=== PATIENT | female | born 1965 | race Caucasian/White ===

== ENCOUNTER 2018-06-17 16:37 | Emergency (ER) | payer OTHER, SELFPAY ==
[2018-06-17 16:39] VITALS: BP 141/90; PULSE 96; RESP 17; TEMP 36.7; O2SAT 99; BMI 30.8
--- NOTE | 2018-06-17 16:55 | CT_ITS ---
STUDY: CT ABDOMEN AND PELVIS WITH CONTRAST REASON FOR EXAM: Female, 53 years old. Vomiting and abdominal pain with diarrhea x1 week. History of colon cancer. RADIATION DOSAGE (If Supplied By Facility): CTDIvol = ( 15.26 ) mGy, DLP = ( 837.06 ) mGycm TECHNIQUE: Transaxial images were obtained from the dome of the diaphragm to the symphysis pubis without oral contrast. 100 ml of Isovue 300 contrast was administered. Sagittal and coronal images were reconstructed. Individualized dose optimization techniques were used for this CT. COMPARISON: None. FINDINGS: The visualized lung bases are unremarkable. The visualized portions of the heart are within normal limits. Normal liver. Normal gallbladder and extrahepatic biliary system. Normal spleen. Normal pancreas. Normal bilateral adrenal glands. Normal right kidney. Normal left kidney. Normal visualized stomach. Normal small intestine. Multiple air-fluid levels are noted throughout the colon. Anastomotic sutures rectosigmoid. There is non-visualization of the appendix. Normal abdominal aorta. Normal inferior vena cava. Normal retroperitoneum. Normal urinary bladder. Uterus normal. Bilateral tubal ligation clips. Fat-containing umbilical hernia. Normal osseous structures. CT/Abdomen/Pelvis WITH Contrast IMPRESSION: Post surgical changes. Nonspecific diarrheal disease. Electronically Signed: Braeden Jiang MD at 20:07 EST , Service support ,
--- NOTE | 2018-06-17 16:55 | EKG12_ITS ---
Test Reason : ABD PAIN Blood Pressure : / mmHG Vent. Rate : 078 BPM Atrial Rate : 078 BPM P-R Int : 118 ms QRS Dur : 084 ms QT Int : 374 ms P-R-T Axes : 039 014 033 degrees QTc Int : 426 ms Normal sinus rhythm Normal ECG Confirmed by TANIA BIANCHI ([id number]), publishing editor DULCE REYES ([id number]) on 06/21/2018 2:22:32 PM Referred By: MALIKA Confirmed By:TANIA BIANCHI
--- NOTE | 2018-06-17 17:05 | ED.DCSUM_ITS ---
- ER Visit Summary Date of Service: 06/17/18 Chief Complaint: Diarrhea History of Present Illness: The patient is a 53 F presenting with diarrhea x 5 days. Patient states she is having yellow watery diarrhea for the past 5 days. She states she is having diarrhea every hour. She is starting to feel lighth eaded. She denies sick contacts, bad food exposure, or recent antibiotics. She has a history of colon cancer that was removed 3 years ago. She denies blood in her stool. She has nausea with no vomiting. She complains of diffuse abdominal pain. Denies fever. Denies other complaints. Physical Examination: Vitals are stable. Patient is afebrile. Alert no acute distress. HEENT exam is unremarkable. Neck is supple. Lungs are clear and equal bilaterally. Heart is regular rate and rhythm. Abdomen is soft mild diffuse tenderness with no rebound or guarding Extremities are unremarkable. Skin is warm and dry. No focal neurologic deficit. Remainder of exam is unremarkable. Emergency Department Course and Treatment: Patient given IV fluids, Zofran. CBC, chemistries unremarkable other than potassium 3.2. Liver enzymes and lipase are normal. C. difficile is negative. EKG is sinus rate is 78 with no acute ischemic changes. CT abdomen pelvis shows postsurgical changes, nonspecific diarrheal disease. Stool studies are pending. Patient feels improved. She is able to ambulate without difficulty. She will follow-up with Dr. Shah marketing automation specialist for no doc. Advised return to ED if worsening complaints. Disposition: Discharge home Impression: Diarrhea This note was generated with [employer] dictation software. It may contain incorrect words, spelling, and punctuation that were not noted in review of the chart prior to signing ED Disposition - Plan for ED Patient: Chief Complaint: Abd Pain Referrals: Care Physician,No Primary [Primary Care Provider] -
--- NOTE | 2018-06-17 17:05 | NURSING ---
NO OLD EKGS
[2018-06-17 17:17] VITALS: BP 132/85; PULSE 95; RESP 14; O2SAT 98; BMI 28.2
[2018-06-17 17:47] LABS: Absolute Lymphocyte Count 1.82 X10^3/ul (0.83-4.51); Absolute Neutrophil Count 4.5 X10^3/uL (2.0-7.7); Basophil# 0.03 X10^3/uL; Basophil% 0.4 % (0-1); Eosinophil# 0.08 X10^3/uL; Eosinophils% 1.1 % (0-5); Hematocrit 37.5 % (37-47); Lymphocyte # 1.82 X10^3/ul (4.0); Lymphocyte % 24.5 % (19-41); Mean Corpuscular Hgb 26.9 pg (27.0-32.0); Mean Corpuscular Volume 84.1 fL (81-99); Mean Platelet Vol. 10.6 fl (6.2-12.0); Monocyte# 0.98 X10^3/uL; Monocyte% 13.2 % (0-10); Neutrophil % 60.7 % (47-70); Platelet Count 256 K/mm3 (150-450); RBC Distribution Width CV 13.9 % (11.6-14.6); RBC Distribution Width SD 42.7 fl (35.1-43.9); Red Blood Count 4.46 M/mm3 (4.2-5.4); White Blood Count 7.4 K/mm3 (4.4-11.0)
[2018-06-17] MEDS: MethylPREDNISolone 125 MG/2 ML Vial IV (17:58)
[2018-06-17] MEDS: Ondansetron 4 MG/2 ML Vial IV (17:58)
[2018-06-17] MEDS: DiphenhydrAMINE 50 MG/ML Syringe 25 MG IV (17:59)
[2018-06-17] MEDS: 0.9% Normal Saline 1,000 ML 1000 ML IV (17:59)
[2018-06-17 18:00] LABS: AST(SGOT) 17 U/L (15-37); Alanine Aminotransfer ALT/SGPT 25 U/L (13-56); Albumin, Serum 3.5 g/dL (3.2-5.0); Alkaline Phosphatase 68 U/L (45-117); Anion Gap 9 (5-15); BUN 7 mg/dL (7-18); BUN/Creat Ratio 7.3 RATIO (10-20); Bilirubin, Direct 0.22 mg/dL (0.00-0.30); Calcium,Total 8.9 mg/dL (8.5-10.1); Chloride 104 mmol/L (98-107); Creatinine, Serum 0.96 mg/dL (0.55-1.02); EST Glomerular Filtration Rate 65 mL/min (>60); Est Glom Filt Rate - Afr Amer 78 mL/min (>60); Estimated Creatinine Clearance 54.83 ml/min; Globulin 3.9 g/dL (2.2-4.2); Glucose 89 mg/dL (74-106); Lipase 183 U/L (73-393); Potassium 3.2 mmol/L (3.5-5.1); Protein, Total 7.4 g/dL (6.4-8.2); Sodium Level 138 mmol/L (136-145)
[2018-06-17 18:15] LABS: POSITIVE COUNT NO; POSITIVE DIFFERENTIAL NO; POSITIVE MORPHOLOGY NO
[2018-06-17 18:49] LABS: Bacteria 0 SEEN /hpf (None Seen); Mucous, Urine 0 SEEN /hpf (<or=2+); Red Blood Cells-Urine 0 SEEN /hpf (0-5); White Blood Cells 0 SEEN /hpf (0-5)
[2018-06-17 18:52] LABS: Glucose, Dipstick Normal (Normal); Ketone-Dipstick 5 mg/dl (Negative); Leukocyte Esterase-Dipstick Negative /ul (Negative); Nitrite-Dipstick Negative (Negative); Occult Blood-Urine 150 /ul (Negative); Protein-Dipstick Negative (Negative); Urine Bilirubin Dipstick Negative (Negative); Urine Urobilinogen Normal (Normal)
[2018-06-17 18:53] LABS: Color, Urine Yellow (Yellow); Urine Clarity Clear (Clear)
[2018-06-17 19:26] VITALS: BP 136/70; PULSE 86; RESP 14; O2SAT 98
[2018-06-17 19:30] LABS: Squamous Epithelial Cells - UA 0-5 SEEN /hpf (5-10)
[2018-06-17 20:39] VITALS: BP 114/83; BP 124/105; BP 134/70; PULSE 102; PULSE 89; PULSE 95; O2SAT 96
--- NOTE | 2018-06-17 22:28 | ED.DEP ---
ED Disposition - Plan for ED Patient: Chief Complaint: Abd Pain Instructions: ED Diarrhea Viral Referrals: Care Physician,No Primary [Primary Care Provider] - Rajan Shah MD [STAFF PHYSICIAN] -
--- NOTE | 2018-06-17 22:36 | ED.DEP ---
ED Disposition - Plan for ED Patient: Chief Complaint: Abd Pain Instructions: ED Diarrhea Viral Prescriptions: Ondansetron [Zofran Odt] 4 mg PO Q8H PRN PRN #10 tablet PRN Reason: Nausea Referrals: Rajan Shah MD [STAFF PHYSICIAN] - Care Physician,No Primary [Primary Care Provider] -
[2018-06-17 22:40] VITALS: BP 114/67; PULSE 87; RESP 16; O2SAT 99
== END 2018-06-17 22:49 | disposition home or self-care (01) ==
LOC: ED 17:34
PROVIDERS: Emergency Provider Emergency Medicine
DX: R19.7 Diarrhea, unspecified (principal); R42 Dizziness and giddiness; R11.0 Nausea; R10.84 Generalized abdominal pain; J45.909 Unspecified asthma, uncomplicated; K21.9 Gastro-esophageal reflux disease without esophagitis; Z85.038 Personal history of other malignant neoplasm of large intestine; Z86.2 Personal history of diseases of the blood and blood-forming organs and certain disorders involving the immune mechanism; Z90.49 Acquired absence of other specified parts of digestive tract
CPT/HCPCS: 74177; 80048; 80076; 81001; 83690; 85025; 87493; 87506; 93005; 96361; 96374; 96375; 99284; Q9967; A4216; J2405

== ENCOUNTER → 2018-06-22 08:45 | Outpatient (CLI) | payer OTHER, SELFPAY ==
[2018-06-22 10:44] LABS: Anion Gap 9 (5-15); BUN 5 mg/dL (7-18); BUN/Creat Ratio 5.2 RATIO (10-20); Calcium,Total 8.8 mg/dL (8.5-10.1); Chloride 105 mmol/L (98-107); Creatinine, Serum 0.97 mg/dL (0.55-1.02); EST Glomerular Filtration Rate 64 mL/min (>60); Est Glom Filt Rate - Afr Amer 78 mL/min (>60); Glucose 105 mg/dL (74-106); Sodium Level 140 mmol/L (136-145)
== END ==
PROVIDERS: Family Provider Family Medicine; PCP Family Medicine; Visit Provider Family Medicine
DX: E87.6 Hypokalemia (principal)
CPT/HCPCS: 36415; 80048

== ENCOUNTER → 2018-06-28 09:57 | Outpatient (CLI) | payer OTHER, SELFPAY ==
[2018-06-17 17:17] VITALS: BMI 28.2
[2018-06-28 12:46] LABS: Potassium 4.1 mmol/L (3.5-5.1)
== END ==
PROVIDERS: Family Provider Family Medicine; PCP Family Medicine; Visit Provider Family Medicine
DX: E87.6 Hypokalemia (principal)
CPT/HCPCS: 36415; 84132

== ENCOUNTER → 2019-03-18 | Outpatient (CLI) | payer OTHER, SELFPAY ==
[2019-03-18 08:17] VITALS: BMI 28.2
--- NOTE | 2019-03-18 08:25 | RAD_ITS ---
STUDY: X-RAY - RIGHT KNEE REASON FOR EXAM: Female, 54 years old. Knee pain TECHNIQUE: 3 view(s) of the knee. COMPARISON: None. FINDINGS: Normal visualized distal femur. Normal visualized proximal tibia and fibula. Normal proximal tibiofibular articulation. Normal medial femorotibial compartment. Normal lateral femorotibial compartment. Normal patellofemoral articulation. The soft tissue structures are unremarkable. RAD/Knee 4 or More Views IMPRESSION: Normal x-ray examination of the knee. Electronically Signed: Ariel Mays, at 16:47 EDT Tel , Service support ,
== END | disposition home or self-care (01) ==
LOC: HPRAD 08:24
PROVIDERS: Family Provider Family Medicine; PCP Family Medicine; Referring Provider Orthopaedic Surgery; Visit Provider Orthopaedic Surgery
DX: S89.91XA Unspecified injury of right lower leg, initial encounter (principal)
CPT/HCPCS: 73564

== ENCOUNTER → 2019-03-21 | Outpatient (CLI) | payer OTHER, SELFPAY ==
[2019-03-18 08:17] VITALS: BMI 28.2
--- NOTE | 2019-03-21 09:08 | RAD_ITS ---
STUDY: X-RAY CHEST REASON FOR EXAM: Female, 54 years old. Preop evaluation. History of asthma TECHNIQUE: Frontal and lateral views of the chest. COMPARISON: None. FINDINGS: The lungs are clear and expanded. There is no demonstrated pleural abnormality. Normal size heart. Normal mediastinum and jamila. Normal visualized pulmonary arteries. Normal visualized aortic arch and descending thoracic aorta. There are mild degenerative changes of the visualized thoracic spine. Normal visualized ribs, clavicles, and shoulders. There is no demonstrated abnormality of the visualized soft tissue structures of the upper abdomen. RAD/Chest PA and Lateral IMPRESSION: No evidence for acute cardiopulmonary pathology. Electronically Signed: Shaun Johnson MD at 1:31 EDT , Service support ,
[2019-03-21 09:53] LABS: Absolute Lymphocyte Count 2.75 X10^3/uL (0.83-4.51); Absolute Neutrophil Count 3.6 X10^3/uL (2.0-7.7); Basophil# 0.05 X10^3/uL; Basophil% 0.7 % (0-1); Eosinophil# 0.26 X10^3/uL; Eosinophils% 3.6 % (0-5); Hematocrit 40.3 % (37-47); Hemoglobin 12.9 g/dL (12.0-15.0); Lymphocyte # 2.75 X10^3/ul (4.0); Lymphocyte % 37.9 % (19-41); Mean Corpuscular Hgb 27.9 pg (27.0-32.0); Mean Platelet Vol. 10.9 fl (6.2-12.0); Monocyte# 0.59 X10^3/uL; Monocyte% 8.1 % (0-10); NRBC Flagged by Analyzer 0 % (0-5); Neutrophil # 3.59 X10^3/uL (2.7-7.7); Neutrophil % 49.4 % (47-70); Platelet Count 255 K/mm3 (150-450); RBC Distribution Width CV 13.1 % (11.6-14.6); RBC Distribution Width SD 41.1 fl (35.1-43.9); Red Blood Count 4.63 M/mm3 (4.2-5.4); White Blood Count 7.3 K/mm3 (4.4-11.0)
[2019-03-21 10:39] LABS: ALB/GLOB Ratio 0.9 RATIO (0.9-2.4); AST(SGOT) 13 U/L (15-37); Alanine Aminotransfer ALT/SGPT 20 U/L (13-56); Albumin, Serum 3.5 g/dL (3.2-5.0); Alkaline Phosphatase 70 U/L (45-117); Anion Gap 7 (5-15); BUN 12 mg/dL (7-18); BUN/Creat Ratio 12.5 RATIO (10-20); Chloride 108 mmol/L (98-107); Creatinine, Serum 0.96 mg/dL (0.55-1.02); EST Glomerular Filtration Rate 65 mL/min (>60); Est Glom Filt Rate - Afr Amer 78 mL/min (>60); Globulin 3.7 g/dL (2.2-4.2); Glucose 99 mg/dL (74-106); Potassium 3.8 mmol/L (3.5-5.1); Protein, Total 7.2 g/dL (6.4-8.2); Sodium Level 142 mmol/L (136-145)
== END | disposition home or self-care (01) ==
LOC: MTLAB 09:06
PROVIDERS: Family Provider Family Medicine; PCP Family Medicine; Referring Provider Nurse Practitioner Family; Visit Provider Nurse Practitioner Family
DX: Z01.818 Encounter for other preprocedural examination (principal)
CPT/HCPCS: 36415; 71046; 80053; 85025

== ENCOUNTER 2019-03-29 07:44 | Day surgery (SDC) | payer OTHER, SELFPAY ==
[2019-03-18 08:17] VITALS: BMI 28.2
[2019-03-29] VITALS (7 sets, daily range): BP systolic 96–116; BP diastolic 49–69; PULSE 58–73; RESP 16; TEMP 36.1–37.2; O2SAT 92–99; BMI 32.7
[2019-03-29] MEDS: Lactated Ringers 1,000 ML 100 ML IV ×2 (08:58→12:11)
[2019-03-29] MEDS: Cefazolin 2 GM in 0.9% Normal Saline 100 ML IV (10:38)
[2019-03-29] MEDS: Epinephrine (1 mg/ml) 1 MG/ML VIAL (10:40)
[2019-03-29] MEDS: MethylPREDNISolone Acetate 80 MG/ML Vial (10:40)
[2019-03-29] MEDS: Bupivacaine Mpf 0.5% 30 ML VIAL (10:40)
[2019-03-29] MEDS: Morphine 4 MG/ML Syringe (10:40)
[2019-03-29] MEDS: Bupiv/Epi 0.5% Mpf 30 ML Vial (10:50)
--- NOTE | 2019-03-29 11:18 | HP.PCM_ITS ---
History and Physical Date of Admission: 03/29/19 Intake Vital Signs 03/18/19 Body Mass Index (BMI) 28.2 Intake Visit Reasons: Right Knee Chief Complaint: VENOFER Allergies latex Allergy (Verified 06/17/18 16:39) Rash codeine Adverse Reaction (Verified 06/17/18 16:39) Vomiting iodine Adverse Reaction (Verified 06/17/18 17:34) Rash Penicillins Adverse Reaction (Verified 06/17/18 17:34) Vomiting Medications Omeprazole [Prilosec] 20 mg PO DAILY 11/09/13 [History Confirmed 03/18/19] Fluticasone 110 Mcg [Flovent (SP)] 2 puff INHALATION BID 06/16/15 [History Confirmed 03/18/19] Albuterol Inhaler [Ventolin Hfa (SP)] 1 puff INHALATION Q4H PRN PRN 07/11/15 [History Confirmed 03/18/19] antiarthritic combination no.2 900 mg tablet mg PO tab 03/18/19 [History Confirmed 03/18/19] magnesium-potassium 99 mg- 90 mg capsule cap PO cap 03/18/19 [History] PFSH Social History (Updated 03/18/19 @ 09:29 by Jorden Carias DO) Smoking Status: Never smoker HPI Right Knee: Details: Parts of this documentation were recorded by a scribe, this documentation accurately reflects the service provided and the decisions made by me, Jorden Carias DO 03/18/19 0742. CACHORRO IRENE is a 54 year old F NEW patient here today for work injury. DOI: 12/28/18. 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 SHe heard and felt a pop of her right knee. Patient states she has been in PT for about 5 weeks and states her ankle is improving but her right knee is still causing her pain. Denies numbness, tingling or other associated symptoms. Did have an MRI on Thursday and then was referred here for positive MRI findings. Patient has medial sided knee pain and states this pain often readiates around her patella. She has been working with light duty restrictions sitting a lot of the day as needed. Has been taking ibuprofen and icing the knee. Was given a script for lodine yesterday and she is going to fill this today. No previous surgery or injuries to the right knee. Does have painful medial snapping and popping. Does have colon resection and malnutrition. ROS Const Reports system reviewed and no additional complaints, except as docu Eyes Reports system reviewed and no additional complaints, except as docu ENT Reports system reviewed and no additional complaints, except as docu Card Reports system reviewed and no additional complaints, except as docu Resp Reports system reviewed and no additional complaints, except as docu GI Reports system reviewed and no additional complaints, except as docu Musc Reports system reviewed and no additional complaints, except as docu, Reports as per HPI Skin/Breast Reports system reviewed and no additional complaints, except as docu Neuro Yes system reviewed and no additional complaints, except as docu Psych Reports system reviewed and no additional complaints, except as docu Endo Reports system reviewed and no additional complaints, except as docu Maxime/Lymph Reports system reviewed and no additional complaints, except as docu Aller/Immun Reports system reviewed and no additional complaints, except as docu Ortho Exam Right Knee Date of injury: 12/28/18 Skin/Wound: No erythema, No ecchymosis Homans Sign: No 1+: Effusion Knee ROM: Yes ROM-Extension -20 to 0, No ROM-Flexion 0-140 (100) Examination: Yes Med jt line tenderness, No Lat jt line tenderness, Yes Amparo's Test (painful medial) Stability: NML: Anterior Drawer, NML: Marya, NML: Posterior Drawer Patella Grind: Yes Supplemental Info 03/18/2019 x-ray right knee: Moderate medial joint space narrowing on standing film 03/15/2019 MRI right knee on a disc: 1.5 cm complex tear posterior horn and root medial meniscus high-grade cartilage wear medial compartment with surrounding stress reaction to tibial plateau and medial femoral condyle strain of medial head of gastrocnemius moderate grade chondromalacia medial trochlea. Joint effusion. Assessment & Plan Problems 1. Sprain of right knee, unspecified ligament, initial encounter S83.91XA Plan Patient educated that she does have a large medial meniscus tear and states that this is what happened when she twisted her knee. Educated that she also has medial compartmental OA. Educated that tx options for the meniscus tear are arthroscopic surgery for meniscectomy. Educated that she may still have pain post op pain d/t the OA. however she was not having symptoms prior to injury. Will request partial medial meniscectomy of the right knee from workers comp. Patient wishes to try to return to work 2-3 days after surgery with light duty restrictions. We will also need surgery clearance for her anemia and hx of colon resection. Reviewed the pre-operative plans with the patient. Risks and benefits of the procedure were fully explained, including but not limited to infection, neurovascular injury, continued pain, arthritis, stiffness, need for further surgery, re-injury, DVT, PE, general risks of anesthesia, and loss of limb or life. The patient understands all the risks and does wish to proceed with written consent. Follow up 2 weeks post op or sooner if pain, swelling, numbness or associated symptoms, or concerns develop. All questions answered. Patient in agreement of plan. Orders Orders: Knee 4 or More Views Today S89.91XA Coding Level of Care Code Off vis,new,level 3 Diagnoses Sprain of right knee, unspecified ligament, initial encounter S83.91XA ??Encounter type: initial encounter ??Involved ligament of knee: unspecified ligament I have re-examined the patient. There are no clinical changes since date of exam
--- NOTE | 2019-03-29 11:19 | DCINST_ITS ---
Discharge Diet: No Restrictions Call your doctor if you observe: Fever of 101 or Higher, Shortness of breath, Chest pain Additional Instructions: Ice and elevate next 72 hours .keep dressing on clean and dry for 48 hours then may remove begin showering daily but do not submerge in tub or pool. After shower may apply Band-Aids . Encourage knee range of motion weightbearing as tolerated, use crutches until confident in knee then may discontinue. No strenuous activity. When not ambulating keep iced and elevated next 72 hours. Allergies/Adverse Reactions: Allergies latex Allergy (Verified 03/29/19 08:31) Rash adhesive tape Adverse Reaction (Verified 03/29/19 08:31) BLISTERS codeine Adverse Reaction (Verified 03/29/19 08:31) Vomiting iodine Adverse Reaction (Verified 03/29/19 08:31) Rash DOES OK WITH PRE-MEDS iron Adverse Reaction (Verified 03/29/19 08:31) FEVER,VOMITING Penicillins Adverse Reaction (Verified 03/29/19 08:31) Vomiting Medications to take at Discharge Omeprazole [Prilosec] 20 mg PO DAILY 11/09/13 Albuterol Inhaler [Ventolin Hfa (SP)] 1 puff INHALATION Q4H PRN PRN 07/11/15 Calcium Phosphate Trib/Vit D3 [Caltrate Gummy Bites] 2 ea PO DAILY 03/25/19 Etodolac [Lodine] 300 mg PO DAILY 03/25/19 Fluconazole [Diflucan] 100 mg PO DAILY 03/25/19 Glucosam/MSM/Chond/Nep603/Hyal [Xtbxgsnwtld-Jtkmiifgmro-BFV Tb] 2 ea PO DAILY 03/25/19 Potassium (Otc) [Potassium Otc] 99 mg PO DAILY 03/25/19 Hydrocodone Bitart/Apap 5-325 [[place] 5MG-325MG] 1 - 2 tab PO Q4H PRN PRN 5 Days #50 tab 03/29/19 The following prescriptions were given: Hydrocodone Bitart/Apap 5-325 [[place] 5MG-325MG] 1 - 2 tab PO Q4H PRN PRN 5 Days #50 tab PRN Reason: Pain Transmission Status: Received by [id number] Primary Care Physician: Erlin De Dios MD [Primary Care Provider] - Test Results: Test results from this visit will be discussed in further detail at your follow- up appointment, if applicable. Please Follow Up With: Jorden Carias DO - 2 weeks
--- NOTE | 2019-03-29 11:21 | OP.PCM_ITS ---
Report of Operation Date of Procedure: 03/29/19 Description of Surgical Findings:: Preop diagnosis: Right knee complex medial meniscus tear DJD Postoperative diagnosis: Right knee posterior horn and root complex meniscus tear, grade 4 cartilage wear medial femoral condyle Procedure: Arthroscopic right knee partial medial meniscectomy chondroplasty Anesthesia: General Estimated blood loss: 5 mL Tourniquet time: 22 minutes minutes 300 mmHg Complications: none Indication for procedure: 54-year-old female patient with mechanical knee pain he did have MRI evidence of meniscal tear and DJD the patient did wish to proceed with an elective arthroscopic surgery to attempt to alleviate the symptoms. Risk benefits and alternatives of the procedure were reviewed including risk of bleeding infection nerve artery tissue damage need for further surgery continued pain and expected postoperative course. Procedure: The patient was met in the preoperative holding area. The operative extremity was identified by both patient and physician and family and marked. Patient was brought back to the operating room on a wheeled cart and transferred to the operating table in the supine position. Anesthesia was started. A well- padded tourniquet was placed on the operative extremity. A lower extremity leg santana was secured to the operative extremity. The contralateral extremity was well-padded and the end of the bed was flexed to 90 degrees. The patient was prepped and draped in the usual sterile fashion. A timeout was called to ensure the proper patient, procedure, and extremity were being contemplated. 0.5% Marcaine with epinephrine was injected into the planned incisional areas under the skin only. An Esmarch was used to exsanguinate the extremity and the tourniquet was inflated. An 11 blade scalpel was used to make a stab incision in the anterior lateral portal. The arthroscope was inserted into the intercondylar notch and inflow and outflow tubes were attached. Arthroscopic visualization began. The medial compartment was entered. An 18-gauge spinal needle was used to establish the placement for anterior medial portal. An 11 blade scalpel was used to make a stab incision. Blunt probe was inserted followed by a meniscal probe. Immediately there is noted to be full-thickness cartilage loss of the medial femoral condyle loose cartilage flaps which were debrided with the shaver performing a gentle chondroplasty of the medial femoral condyle was also noted to be complex tearing of the posterior horn and root of medial meniscus 3 5 full-radius shaver as well as an ArthroCare and arthroscopic biting instruments were used to perform partial medial meniscectomy the ACL was found to be intact. The lateral compartment was entered free of meniscal or cartilage pathology The arthroscope was switched to the medial portal to complete the procedure. The medial and lateral gutters were inspected and were free of loose bodies. The patellofemoral joint was inspected and was free of cartilage pathology. There was good patellar tracking. The knee was thoroughly irrigated and drained. An intra-articular injection with 5 cc 0.5% Marcaine plain 4 mg of morphine and 40 mg of Depo-Medrol was injected intra-articularly. The arthroscope was removed the portals were closed with 3-0 nylon arthroscopic stitches. Followed by Xeroform 4 x 4's ABDs web roll and an Sukumar wrap. The tourniquet was let down and the drapes were removed. All counts were correct. The patient was brought back to the PACU in stable condition.
== END 2019-03-29 14:06 | disposition home or self-care (01) ==
LOC: SDC 07:47 → AC 07:47
PROVIDERS: Family Provider Family Medicine; PCP Family Medicine; Referring Provider Orthopaedic Surgery; Visit Provider Orthopaedic Surgery
PROC: (CPT 29870; principal; 2019-03-29 09:30)
DX: S83.231A Complex tear of medial meniscus, current injury, right knee, initial encounter (principal); M94.261 Chondromalacia, right knee; M17.11 Unilateral primary osteoarthritis, right knee; X50.1XXA Overexertion from prolonged static or awkward postures, initial encounter; Y93.9 Activity, unspecified; Y92.9 Unspecified place or not applicable; J45.909 Unspecified asthma, uncomplicated; G25.81 Restless legs syndrome; K21.9 Gastro-esophageal reflux disease without esophagitis; Z78.0 Asymptomatic menopausal state; Z86.2 Personal history of diseases of the blood and blood-forming organs and certain disorders involving the immune mechanism; Z85.038 Personal history of other malignant neoplasm of large intestine; Z90.49 Acquired absence of other specified parts of digestive tract; Z79.899 Other long term (current) drug therapy
CPT/HCPCS: 29881; J7120; J2405

== ENCOUNTER → 2019-04-07 | Outpatient (CLI) | payer OTHER, SELFPAY ==
[2019-03-29 08:35] VITALS: BMI 32.7
[2019-04-13 12:24] LABS: HPV Reflexed? NOT INDICATED
== END | disposition home or self-care (01) ==
PROVIDERS: Family Provider Family Medicine; PCP Family Medicine; Referring Provider Nurse Practitioner Family; Visit Provider Nurse Practitioner Family
DX: Z01.419 Encounter for gynecological examination (general) (routine) without abnormal findings (principal); N76.0 Acute vaginitis
CPT/HCPCS: 87070; 87077; 87186; 87205; 88175; G0145

== ENCOUNTER 2019-06-02 08:00 | Outpatient (RCR) | payer OTHER, SELFPAY ==
[2019-04-13 07:47] VITALS: BMI 32.7
--- NOTE | 2019-04-28 13:34 | HP.PTEVAL_ITS ---
Patient's Visit Information CACHORRO IRENE is a 54 year old F referred to Physical Therapy by Jorden Carias DO with a diagnosis of L Knee Arthroscopy. Date of Evaluation: 04/28/19 Physical Therapist: Katina Chavez DPT - Visit Plan Frequency: 3x /Week Duration: 4 Weeks Plan: Focus on improving knee ROM & LE s/s, gait training, stair training, increasing flexibility, & decreasing pain. 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 x-ray negative, MRI - 1.5 cm long tear in medial meniscus, stated slight ACL tear that will hear on its own. Off for a week from work, urgent care closed case. Transferred to [facility] seen on 04/25/19 and advised a cortisone shot to decrease inflammationg. Has returned to work and is currently working. Incisions removed 14 days ago. Reports performing freq. walking, ankle pumps, stretching exercises. Returned to work 3 days after surgery - all seated taks & resources available to elevate & ice, 10 hour shifts. Work has been very accomodation. Lives with boyfriend who helps her around the house. Lives in mobile home, 3 sets up into house. Difficulty asc/desc stairs. Describes pain as sharp & stabbing at ant. joint line to medial knee. Increase in swelling when on her feet. Worst: 6/10 Aggravating factors: sitting in chair, prolonged standing, walking long distances, ADL's, self-care activities, stairs. Pain free at times Relieving factors: ice, mild pain medications. Disrupts sleeping - usually side/stomach sleeper, sleeps on back with pillows under her knee. N/T from knee down back of leg down to toes. Frequent foot cramps. Some mild radiating pain down the leg, swelling at can spread to calf & distal thigh. Ambulates with crutches all the time, inside the house. Has 3 dogs in the house with her. 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 Lesisure activites: riding motorcycle, walking dogs, hiking, walking., traveling. PMH/Meds: anemic, see chart. - Objective Posture: RS, FH - corrected w/ V/C but not maintained. Gait:using crutches- does not place foot plat on floor-toe only walking back to IE- was able to put foot flat on ground after extension stretching by PT- decreased stance time on R, lacks TKE on R, shifts weight to L LE. HR/TR: 75% diminshed & painful w/ UE support. SLS: unable to weight shift to R LE. ROM: Knee Flex 65 degrees Ext - 10 degrees Ankle WFL (painful) after extension stretching 30 degrees prior. Strength: Ankle 3+/5 (painful), Knee 3/5 (painful), hip 3+/5 (painful)- all testing done in available range. Flexibility: Hamstring: severe Gastroc: severe. Girth: Patella 39 cm, 6 in. above 48 cm, 6 in. below 36 cm. Palpation: TTP at joint line and medial knee. Sensation: WFL to gross B touch. Incisions: healing well - Goals Goal 1:: Pt. will be I w/ HEP & progression Goal Time Frame: 4-6 Weeks Goal 2:: Pt. will demo 0-115 degrees of ROM in the right knee Goal Time Frame: 4-6 Weeks Goal 3:: Pt. will demo 4+/5 strength for R LE Goal Time Frame: 4-6 Weeks Goal 4:: Pt. will amb. >300 ft. with a normalized gait pattern & no AD. Goal Time Frame: 4-6 Weeks Goal 5:: Patient will asc/desc 8 stairs recip with 1 HR Goal Time Frame: 4-6 Weeks - Rehabilitation Potential Physical Therapy Diagnosis: Presents w/ hypomobility, antalagic gait, impaired muscle performance, decreased ROM, pdifficulty asc./desc stairs, and decreased flexibility which leads to pain w/ ADL's. Rehabilitation Potential: Good - Anticipated Interventions Patient/Client Instruction: Educate patient on: Condition, Plan of Care For the Purpose of:: To decrease pain Therapeutic Exercise to Include: Strength training, Endurance training, Balance training, Flexibilty training, Gait and locomotor training, Passive ROM, Active ROM, Dynamic Lumbar Stabilization For the Purpose of:: To improve muscle performance and motor function Functional Training to Include: Gait training For the Purpose of:: To improve muscle performance and motor function TENS: Yes Cryotherapy (ice pack, ice massage): Yes Thermo therapy (hot pack): Yes For the Purpose of:: To decrease pain Thank you for the opportunity to evaluate your patient. For Medicare and Medicare HMO plans, please review the plan of care and approve it. It will need to be FAXED BACK to us at [phone] for Medicare purposes. For Medicare only, by signing this I certify the plan of care. Please let me know if there are questions or concerns regarding this plan of care. Physician Signature: Date:
--- NOTE | 2019-08-04 13:12 | HP.PTDCSUM ---
HP - PT D/C Summary It has been my pleasure to treat CACHORRO IRENE under orders from Jorden Carias DO, for the diagnosis of Right Knee Arthroscopy for a total of 11 visit(s). Discharge Date: Please see the following information for a summary of their discharge status. - Subjective Subjective: Pt. reports therapy has been great. Back to working 10 hour shifts w/ no issues or pain. - Overall Improvement % Improvement: 100 - Objective Objective/Function: Posture: RS, FH - corrected w/ V/C but not maintained. Gait: No deviations noted. HR/TR: WFL w/ UE support. SLS: 10 sec B. ROM: Knee 0-122 degrees. Strength: Ankle/Knee/Hip 5/5. Flexibility: Hamstring: mod. Gastroc: Mod. Girth: 6 in. above patella 51 cm R/L. Palpation: NTTP. Sensation: WFL to gross B touch. Incisions: healing well. [ End ] - Goals Goal 1:: Pt. will be I w/ HEP & progression Goal Progress: Goal Met Goal 2:: Pt. will demo 0-115 degrees of ROM in the right knee Goal Progress: Goal Met Goal 3:: Pt. will demo 4+/5 strength for R LE Goal Progress: Goal Met Goal 4:: Pt. will amb. >300 ft. with a normalized gait pattern & no AD. Goal Progress: Goal Met Goal 5:: Patient will asc/desc 8 stairs recip with 1 HR Goal Progress: Goal Met - Plan Plan: 06/02/19 D/C & instructed to cont. HEP I - D/C Information If there are questions or concerns regarding this patient's physical therapy, please feel free to call me at [phone]. Thank you for the referral of this patient. Sincerely, Katina Chavez DPT
== END 2019-06-02 19:00 | disposition home or self-care (01) ==
LOC: PT 08:00
PROVIDERS: Family Provider Family Medicine; PCP Family Medicine; Visit Provider Orthopaedic Surgery
DX: S83.91XD Sprain of unspecified site of right knee, subsequent encounter (principal)
CPT/HCPCS: 97110; 97161; 97164

== ENCOUNTER → 2019-11-04 11:37 | Outpatient (CLI) | payer OTHER, SELFPAY ==
[2019-09-28 08:14] VITALS: BMI 32.7
--- NOTE | 2019-11-04 11:40 | RAD_ITS ---
STUDY: X-RAY - LEFT KNEE REASON FOR EXAM: Female, 54 years old. PAIN IN BOTH KNEES FOR A LONG TIME. NO KNOW INJURY. TECHNIQUE: 4 view(s) of the knee. COMPARISON: None. FINDINGS: Normal visualized distal femur. Normal visualized proximal tibia and fibula. Normal proximal tibiofibular articulation. Normal medial femorotibial compartment. Normal lateral femorotibial compartment. Normal patellofemoral articulation. The soft tissue structures are unremarkable. RAD/Knee 4 or More Views IMPRESSION: Normal x-ray examination of the knee. Electronically Signed: Santhosh Pineda, at 14:43 EDT , Service support ,
--- NOTE | 2019-11-04 11:44 | RAD_ITS ---
STUDY: X-RAY - RIGHT KNEE REASON FOR EXAM: Female, 54 years old. PAIN IN BOTH KNEES FOR A LONG TIME. NO KNOW INJURY. TECHNIQUE: 4 view(s) of the knee. COMPARISON: None. FINDINGS: Small degenerative spur along the medial condyle of the distal femur. Small degenerative spur of the medial tibial plateau. Normal proximal tibiofibular articulation. There is moderate degenerative arthrosis of the medial femorotibial compartment with moderate joint space narrowing. Normal lateral femorotibial compartment. Normal patellofemoral articulation. The soft tissue structures are unremarkable. RAD/Knee 4 or More Views IMPRESSION: Degenerative arthrosis. Electronically Signed: Santhosh Pineda, at 14:45 EDT , Service support ,
== END ==
PROVIDERS: PCP Family Medicine; Referring Provider Family Medicine; Visit Provider Family Medicine
DX: M25.561 Pain in right knee (principal); M25.562 Pain in left knee
CPT/HCPCS: 73564

== ENCOUNTER 2020-10-12 13:29 | Observation (INO) | payer OTHER, SELFPAY ==
[2019-09-28 08:14] VITALS: BMI 32.7
[2020-10-12] VITALS (13 sets, daily range): BP systolic 97–126; BP diastolic 53–96; PULSE 68–99; RESP 16–18; TEMP 36.6–37; O2SAT 94–100; BMI 36.1; BMI 40.4
--- NOTE | 2020-10-12 14:01 | US_ITS ---
STUDY: ABDOMINAL ULTRASOUND - RIGHT UPPER QUADRANT REASON FOR VISIT: Female, 55 years old PAIN TECHNIQUE: Ultrasound evaluation of the right upper quadrant was performed with real-time and static collier-scale imaging. TECHNICAL QUALITY: Adequate. COMPARISON: None. FINDINGS: Liver: The liver measures 15.3 cm. There is normal echogenicity of the liver. The bile ducts are within normal limits. There is hepatic color flow. The direction of portal flow is hepatopetal. There is no demonstrated mass lesion. Gallbladder: Normal distended gallbladder. The gallbladder wall measures 3.0 mm. There is a negative sonographic Fitzgerald''s sign. There is no pericholecystic fluid. Multiple gallstones are present with a nonmobile gallstone in the gallbladder neck. Common Bile Duct (C.B.D.): The common bile duct measures 4.8 mm. Pancreas: Normal size of the head, body and tail of the pancreas. There is normal echogenicity of the pancreas. There is no demonstrated pancreatic mass or cyst. Right Kidney: Normal size of the right kidney. The right kidney measures 9.5 x 5.1 x 4.2 cm. Normal renal cortex. The right cortex measures 1.2 cm. There is no demonstrated renal mass or cyst. There is no right hydronephrosis. US/Gallbladder IMPRESSION: Nondistended gallbladder with mild wall thickening, multiple gallstones and one stone appears nonmobile in the gallbladder neck. Nondistended common bile duct. Normal liver, pancreas and right kidney. Electronically Signed: Kaitlyn Cabezas MD at 16:07 EST , Service support ,
[2020-10-12] MEDS: 0.9% Normal Saline 1,000 ML 1000 ML IV (14:06)
[2020-10-12] MEDS: Ondansetron 4 MG/2 ML Vial IV (14:06)
[2020-10-12] MEDS: Morphine 4 MG/ML Syringe IV (14:06)
[2020-10-12 14:15] LABS: Absolute Lymphocyte Count 1.81 X10^3/uL (0.83-4.51); Absolute Neutrophil Count 7.1 X10^3/uL (2.0-7.7); Basophil# 0.06 X10^3/uL; Basophil% 0.6 % (0-1); Hematocrit 40.7 % (37-47); Hemoglobin 12.7 g/dL (12.0-15.0); Lymphocyte # 1.81 X10^3/ul (4.0); Lymphocyte % 18.7 % (19-41); Mean Corp Hgb Conc 31.2 g/dL (32-36); Mean Corpuscular Hgb 27.2 pg (27.0-32.0); Mean Corpuscular Volume 87.2 fL (81-99); Mean Platelet Vol. 10.8 fl (6.2-12.0); Monocyte# 0.55 X10^3/uL; Monocyte% 5.7 % (0-10); NRBC Flagged by Analyzer 0 % (0-5); Neutrophil # 7.13 X10^3/uL (2.7-7.7); Neutrophil % 73.8 % (47-70); Platelet Count 258 K/mm3 (150-450); RBC Distribution Width CV 13.1 % (11.6-14.6); RBC Distribution Width SD 41.2 fl (35.1-43.9); Red Blood Count 4.67 M/mm3 (4.2-5.4); White Blood Count 9.7 K/mm3 (4.4-11.0)
--- NOTE | 2020-10-12 14:20 | ED.DCSUM_ITS ---
- ER Visit Summary Date of Service: 10/12/20 Chief Complaint: Right upper quadrant abdominal pain History of Present Illness: The patient is a 55 F who presents with right upper quadrant abdominal pain that began today. Patient states the pain is over the right upper quadrant radiates around to her back. Patient describes the pain is sharp and stabbing. Patient states nothing makes it better or worse. Patient admits to some nausea and vomiting. Patient denies any hematemesis or coffee- ground emesis. Patient denies any diarrhea, melena, or hematochezia. Patient denies any dysuria or hematuria. Patient denies any fevers but admits to some subjective chills. Physical Examination: Vital signs are stable. Patient is afebrile. Patient is in no acute distress. Oral mucosa is pink and moist. Neck is supple. Trachea is midline. There is no JVD. Heart was regular rate and rhythm. Lungs are clear and equal bilaterally. Abdomen is soft. Bowel sounds are normal. There is right upper quadrant tenderness. Fitzgerald sign was negative. There is no rebound or guarding noted. Cranial nerves II through XII are intact. There are no focal motor or sensory deficits. Extremities are intact. There is no calf tenderness or edema. Test Results: CBC is within normal limits. Comprehensive metabolic profile showed a slightly elevated creatinine of 1.16. Total bilirubin was elevated 2.3. AST was 151 ALT was 88. Lipase was normal at 136. Gallbladder ultrasound was obtained. There are multiple gallstones. There is one gallstone noted in the neck of the gallbladder. There is minimal wall thickening. There is normal bile duct measurement. There is no pericholecystic fluid. This was interpreted by the radiologist and reviewed by myself. Emergency Department Course and Treatment: Patient was given morphine and Zofran here. Patient is resting comfortably on reevaluation. Case was discussed with Dr. Helms. He will take the patient to endoscopy for an ERCP. He will admit the patient to his service and perform laparoscopic cholecystectomy tomorrow. Patient understands and is agreeable with the plan. All questions were answered. Disposition: Admit to hospital Impression: 1. Cholelithiasis This note was generated with Filter [employer] software. It may contain incorrect words, spelling, and punctuation that were not noted in review of the chart prior to signing ED Disposition - Plan for ED Patient: Disposition: Acute Care Hospital [facility] Diagnosis: Cholelithiasis Referrals: Erlin De Dios MD [Primary Care Provider] -
[2020-10-12 14:35] LABS: AST(SGOT) 151 U/L (15-37); Alanine Aminotransfer ALT/SGPT 88 U/L (13-56); Albumin, Serum 3.7 g/dL (3.2-5.0); Alkaline Phosphatase 103 U/L (45-117); Anion Gap 7 (5-15); BUN 11 mg/dL (7-18); BUN/Creat Ratio 9.5 RATIO (10-20); Calcium,Total 9.3 mg/dL (8.5-10.1); Chloride 105 mmol/L (98-107); Creatinine, Serum 1.16 mg/dL (0.55-1.02); EST Glomerular Filtration Rate 52 mL/min (>60); Est Glom Filt Rate - Afr Amer 63 mL/min (>60); Globulin 3.6 g/dL (2.2-4.2); Glucose 131 mg/dL (74-106); Lipase 136 U/L (73-393); Potassium 3.6 mmol/L (3.5-5.1); Protein, Total 7.3 g/dL (6.4-8.2); Sodium Level 139 mmol/L (136-145)
[2020-10-12 16:06] LABS: Bacteria 0 SEEN /hpf (None Seen); Mucous, Urine 0 SEEN /hpf (<or=2+)
[2020-10-12 16:14] LABS: Color, Urine Yellow (Yellow); Glucose, Dipstick Normal (Normal); Ketone-Dipstick 5 mg/dl (Negative); Leukocyte Esterase-Dipstick 25 /ul (Negative); Nitrite-Dipstick Negative (Negative); Occult Blood-Urine 25 /ul (Negative); Protein-Dipstick Negative (Negative); Specific Gravity, Urine 1.015 (1.002-1.030); Urine Bilirubin Dipstick Negative (Negative); Urine Clarity Clear (Clear); Urine Urobilinogen 4 mg/dl (Normal)
[2020-10-12 16:22] LABS: Red Blood Cells-Urine 0-5 SEEN /hpf (0-5); Squamous Epithelial Cells - UA 0-5 SEEN /hpf (5-10); White Blood Cells 0-5 SEEN /hpf (0-5)
--- NOTE | 2020-10-12 16:44 | NURSING ---
[facility]UR[facility]
--- NOTE | 2020-10-12 16:47 | NURSING ---
MED SURG AFTER SURGERY JUAN CHOLELITHIASIS
--- NOTE | 2020-10-12 16:48 | NURSING ---
CALLED [facility]Y [facility]USTOS FOR TRANSFER TALKED TO [place]
--- NOTE | 2020-10-12 17:02 | ED.RN ---
THIS NURSE SPOKE WITH AD IN [facility]. THEY ARE AWARE SHE IS NOT PREPPED FOR SURGERY. OK TO TAKE TO [facility]
--- NOTE | 2020-10-12 17:02 | PCM.HP.STD ---
Problem List (1) Obstructive jaundice Status: Acute (2) Cholecystitis Status: Acute History of Present Illness Date of Admission: 10/12/20 The patient is a 55 year old F here with right upper quadrant pain since yesterday. The patient reports yesterday evening she started developing right upper quadrant pain and it got worse throughout the evening and into today. She tried to eat breakfast and threw up this morning. She reports the pain radiates around to the back. Past Medical History Allergies latex Allergy (Verified 10/12/20 13:31) Rash adhesive tape Adverse Reaction (Verified 10/12/20 13:31) BLISTERS codeine Adverse Reaction (Verified 10/12/20 13:31) Vomiting iodine Adverse Reaction (Verified 10/12/20 13:31) Rash DOES OK WITH PRE-MEDS iron Adverse Reaction (Verified 10/12/20 13:31) FEVER,VOMITING Penicillins Adverse Reaction (Verified 10/12/20 13:31) Vomiting Home Medications: Ambulatory Orders Medication Instructions Recorded Omeprazole [Prilosec] 20 mg PO DAILY 11/09/13 Albuterol Inhaler [Ventolin Hfa 1 puff INHALATION Q4H PRN PRN 07/11/15 (SP)] Calcium Phosphate Trib/Vit D3 2 ea PO DAILY 03/25/19 [Caltrate Gummy Bites] Potassium (Otc) [Potassium Otc] 99 mg PO DAILY 03/25/19 Surgical History: Surgical History (Last Updated 04/13/19 @ 09:08 by Marivel Mirza) h/o right knee scope Surgical History: colectomy Smoking Status: Never smoker - *Family History Maternal History Items: No pertinent history Review of Systems Constitutional: Denies: Anorexia, Fever HEENT: Denies: Difficulty Swallowing Cardiovascular: Denies: Chest Pain Respiratory: Denies: Cough, Shortness of Breath Gastrointestinal: Reports: Abdominal Pain, Nausea, Vomiting. Denies: Hematemesis, Hematochezia Genitourinary: Denies: Frequency Musculoskeletal: Denies: Leg Pain Skin: Denies: Dryness, Jaundice Hematologic/ Lymphatic: Denies: Anemia VTE Information - Inpt Only VTE Present on Admission: No VTE Mechan Device Prophylaxis: SCD's - Physical Exam Vitals/I&O's: Vital Signs Temp Pulse Resp BP Pulse Ox 98.1 F 79 16 97/84 H 99 10/12/20 16:10 10/12/20 16:10 10/12/20 16:10 10/12/20 16:10 10/12/20 16:10 Oxygen Delivery Method Room Air Weight: 204 lb Body Mass Index (BMI) 36.1 General: Alert, Oriented x3 Neck: No JVD Lungs: Normal air movement Cardiovascular: Regular rate, Regular Rhythm Abdomen: Soft, Non-Distended, Tender - Tender in the right upper quadrant Skin: No rashes Musculoskeletal: No Tenderness to Palpation of Joints or Extremities Neurological: Cranial nerves II-XII grossly intact Psych/Mental Status: Normal Affect Laboratory Results 10/12/20 13:53: WBC 9.7, RBC 4.67, Hgb 12.7, Hct 40.7, MCV 87.2, MCH 27.2, MCHC 31.2 L, RDW Std Deviation 41.2, RDW Coeff of Laila 13.1, Plt Count 258, MPV 10.8, Immature Gran % (Auto) 0.200, Neut % (Auto) 73.8 H, Lymph % (Auto) 18.7 L, Pepin % (Auto) 5.7, Eos % (Auto) 1.0, Baso % (Auto) 0.6, Absolute Neuts (auto) 7.1, Absolute Lymphs (auto) 1.81, Nucleated RBC % 0 10/12/20 13:53: Sodium 139, Potassium 3.6, Chloride 105, Carbon Dioxide 27.0, Anion Gap 7, BUN 11, Creatinine 1.16 H, Estim Creat Clear Calc 46.40, Est GFR (MDRD) Af Amer 63, Est GFR (MDRD) Non-Af 52 L, BUN/Creatinine Ratio 9.5 L, Glucose 131 H, Calcium 9.3, Total Bilirubin 2.30 H, AST 151 H, ALT 88 H, Alkaline Phosphatase 103, Total Protein 7.3, Albumin 3.7, Globulin 3.6, Albumin/Globulin Ratio 1.0, Lipase 136 10/12/20 16:00: Urine Color Yellow, Urine Clarity Clear, Urine pH 8.0, Ur Specific [place] 1.015, Urine Protein Negative, Urine Glucose (UA) Normal, Urine Ketones 5 H, Urine Occult Blood 25 H, Urine Nitrite Negative, Urine Bilirubin Negative, Urine Urobilinogen 4 H, Ur Leukocyte Esterase 25 H, Urine RBC 0-5 SEEN, Urine WBC 0-5 SEEN, Ur Squamous Epith Cells 0-5 SEEN, Urine Bacteria 0 SEEN, Urine Mucus 0 SEEN Clinical Impression(s) from Imaging Studies Gallbladder Ultrasound 10/12/20 14:01 IMPRESSION: Nondistended gallbladder with mild wall thickening, multiple gallstones and one stone appears nonmobile in the gallbladder neck. Nondistended common bile duct. Normal liver, pancreas and right kidney. Electronically Signed: Kaitlyn Cabezas MD at 16:07 EST , Service support , Current Medications Clindamycin Phosphate 900 mg/ (Dextrose) 106 mls @ 150 mls/hr IV X1 ONE Stop: 10/12/20 17:33 Assessment/Plan All Active Problems Obstructive jaundice (Acute) Cholecystitis (Acute) 55-year-old female with acute cholecystitis and possible choledocholithiasis 1. Patient has right upper quadrant pain and ultrasound revealed a borderline thickened gallbladder wall with a stone lodged in the neck of the gallbladder. The patient does have a normal white count but she does have a left shift. The patient also has elevated LFTs. I discussed with her that she likely has early acute cholecystitis as well as obstruction of her bile duct. 2. I discussed ERCP with her in detail. I discussed the procedure as well as the risks including but not limited to bleeding, infection, perforation of the bile duct or bowel, pancreatitis. I also discussed the possibility of stent placement. The patient understands the procedure and is willing to proceed. I will plan for a Covid test and antibiotics today and ERCP today. Plan for laparoscopic cholecystectomy tomorrow. I did discuss contrast used during the case that she is mildly allergic to iodine with a rash reaction. The patient will receive steroids and Benadryl prior to procedure. Omari Helms MD Pager: [facility] [address] [place] [address] [address] [place] [address] Office:
--- NOTE | 2020-10-12 17:10 | RAD_ITS ---
CLINICAL HISTORY: Female, 55 years old. Pain. PROCEDURE: ERCP. FLUOROSCOPY TIME (if supplied): Not provided. TECHNIQUE: 5 procedure images were presented for interpretation. The images demonstrate the endoscope in the duodenum. There is cannulization of the bile documented with injection of contrast. There is no evidence of biliary ductal dilatation. The gallbladder and CBD appear normal. There is no evidence of stricture or filling defect. Please refer to the procedural report for further details. RAD/ERCP Biliary Only IMPRESSION: ERCP in the OR. Electronically Signed: Fili Carmen DO at 22:35 EST Tel [phone], Service support ,
--- NOTE | 2020-10-12 17:51 | OP.CCLET_ITS ---
10/12/2020 Erlin De Dios [address] [place] [address] Re : ERCP procedure for Krystyna Tinoco Dear Dr. De Dios This procedure was performed on Monday, October 12, 2020. My impressions and recommendations are as follows: Impressions : - A biliary sphincterotomy was performed. - The biliary tree was swept and sludge was found. Recommendations : - Ad[facility] the patient [facility]. My findings are described in the full procedure note, which is enclosed. If I can be of further assistance, please feel free to contact me at Doctor phone number(s): , Work: . Sincerely, Omari Helms MD 10/12/2020 5:50:29 PM This report has been signed electronically.
--- NOTE | 2020-10-12 17:51 | OP.ERCP_ITS ---
Patient Name: Krystyna Tinoco Procedure Date: 10/12/2020 4:51 PM Date of : 1965 Age: 55 Procedure: ERCP Indications: Abdominal pain of suspected biliary origin, Elevated liver enzymes Providers: Omari Helms MD Medicines: Monitored Anesthesia Care Patient Profile: This is a 55 year old female. Refer to note in patient chart for documentation of history and physical. Complications: No immediate complications. Procedure: Pre-Anesthesia Assessment: - Prior to the procedure, a History and Physical was performed, and patient medications and allergies were reviewed. The patient's tolerance of previous anesthesia was also reviewed. The risks and benefits of the procedure and the sedation options and risks were discussed with the patient. All questions were answered, and informed consent was obtained. Prior Anticoagulants: The patient has taken no previous anticoagulant or antiplatelet agents. After reviewing the risks and benefits, the patient was deemed in satisfactory condition to undergo the procedure. After obtaining informed consent, the scope was passed under direct vision. Throughout the procedure, the patient's blood pressure, pulse, and oxygen saturations were monitored continuously. The [id number]/n [id number] endoscope was introduced through the mouth, and advanced to the duodenum and used to inject contrast into the bile duct. The ERCP was accomplished without difficulty. The patient tolerated the procedure well. Scope In: 5:26:11 PM Scope Out: 5:37:38 PM Total Procedure Duration Time 0 hours 11 minutes 27 seconds Findings: A 0.035 inch x 260 cm straight Dreamwire was passed into the biliary tree. The sphincterotome was passed over the guidewire and the bile duct was then deeply cannulated. Contrast was injected. I personally interpreted the bile duct images. There was brisk flow of contrast through the ducts. Biliary sphincterotomy was made with a monofilament sphincterotome using ERBE electrocautery. There was no post-sphincterotomy bleeding. The biliary tree was swept with a 12 mm balloon starting at the bifurcation. Sludge was swept from the duct. Impression: - A biliary sphincterotomy was performed. - The biliary tree was swept and sludge was found. Recommendation: - Admit the patient to [facility] for [facility] care. Procedure Code(s): --- Professional --- 86664, Endoscopic retrograde cholangiopancreatography (ERCP); with removal of calculi/debris from biliary/pancreatic duct(s) 95657, Endoscopic retrograde cholangiopancreatography (ERCP); with sphincterotomy/papillotomy Diagnosis Code(s): --- Professional --- R10.9, Unspecified abdominal pain R74.8, Abnormal levels of other serum enzymes CPT copyright 2017 [employer]. All rights reserved. The codes documented in this report are preliminary and upon comp field case manager review may be revised to meet current compliance requirements. Omari Helms MD 10/12/2020 5:50:29 PM This report has been signed electronically. Number of Addenda: 0 Note Initiated On: 10/12/2020 4:51 PM
--- NOTE | 2020-10-12 18:13 | PN_ITS ---
Progress Note Patient had successful ERCP with clearance of duct. There is good flow of bile. I discussed the case with the patient and discussed laparoscopic cholecystectomy for tomorrow. I discussed the procedure in detail with the patient. I discussed the risks, benefits, and alternatives of the procedure. I discussed the risks including but not limited to bleeding, infection, injury to surrounding organs such as the liver, bile duct, bowels. I did discuss the possibility of having to convert to an open procedure as well as the possibility that if any injuries occurred this may necessitate further surgery at a tertiary care center. Omari Helms MD Pager: [facility] [address] [place] [address], [address] [place] [address] Office: [facility] Vital Signs/Narrative: Vital Signs Temp Pulse Resp BP Pulse Ox 10/12/20 18:00 78 16 109/63 100 10/12/20 17:56 97.8 F 99 16 120/96 H 100 10/12/20 17:01 98.1 F 79 16 97/84 H 99 10/12/20 16:10 98.1 F 79 16 97/84 H 99
[2020-10-12] MEDS: 0.9% Normal Saline 1,000 ML 60 ML IV (19:35)
[2020-10-12] MEDS: Morphine 2 MG/ML Syringe IV (19:35)
[2020-10-13] VITALS (15 sets, daily range): BP systolic 89–148; BP diastolic 48–80; PULSE 63–102; RESP 16–18; TEMP 36.1–37.2; O2SAT 92–98; BMI 40.3
--- NOTE | 2020-10-13 05:00 | EKG12_ITS ---
Test Reason : AM EKG Blood Pressure : / mmHG Vent. Rate : 066 BPM Atrial Rate : 066 BPM P-R Int : 124 ms QRS Dur : 082 ms QT Int : 414 ms P-R-T Axes : 056 006 011 degrees QTc Int : 434 ms Normal sinus rhythm with sinus arrhythmia Normal ECG When compared with ECG of 17-JUN-2018 17:17, No significant change was found Confirmed by AVERY ANGULO, DEB ([id number]), legal editor ZAIN SUMMERS ([id number]) on 10/16/2020 12:39:32 PM Referred By: JUAN Confirmed By:DEB VARELA MD
[2020-10-13] MEDS: Pantoprazole Sodium 20 MG Tablet PO (05:01)
[2020-10-13 05:31] LABS: Absolute Lymphocyte Count 1.12 X10^3/uL (0.83-4.51); Absolute Neutrophil Count 10.1 X10^3/uL (2.0-7.7); Basophil# 0.01 X10^3/uL; Basophil% 0.1 % (0-1); Hematocrit 41.5 % (37-47); Hemoglobin 13.4 g/dL (12.0-15.0); Lymphocyte # 1.12 X10^3/ul (4.0); Lymphocyte % 9.8 % (19-41); Mean Corp Hgb Conc 32.3 g/dL (32-36); Mean Corpuscular Hgb 28.2 pg (27.0-32.0); Mean Corpuscular Volume 87.4 fL (81-99); Mean Platelet Vol. 11.1 fl (6.2-12.0); Monocyte# 0.14 X10^3/uL; Monocyte% 1.2 % (0-10); NRBC Flagged by Analyzer 0 % (0-5); Neutrophil # 10.06 X10^3/uL (2.7-7.7); Neutrophil % 88.3 % (47-70); Platelet Count 249 K/mm3 (150-450); RBC Distribution Width SD 41.1 fl (35.1-43.9); Red Blood Count 4.75 M/mm3 (4.2-5.4); White Blood Count 11.4 K/mm3 (4.4-11.0)
[2020-10-13 06:01] LABS: AST(SGOT) 279 U/L (15-37); Alanine Aminotransfer ALT/SGPT 368 U/L (13-56); Albumin, Serum 3.5 g/dL (3.2-5.0); Alkaline Phosphatase 122 U/L (45-117); Anion Gap 8 (5-15); BUN 9 mg/dL (7-18); BUN/Creat Ratio 8.3 RATIO (10-20); Calcium,Total 8.9 mg/dL (8.5-10.1); Chloride 108 mmol/L (98-107); Creatinine, Serum 1.09 mg/dL (0.55-1.02); EST Glomerular Filtration Rate 56 mL/min (>60); Est Glom Filt Rate - Afr Amer 67 mL/min (>60); Estimated Creatinine Clearance 42.87 ml/min; Globulin 3.6 g/dL (2.2-4.2); Glucose 144 mg/dL (74-106); Potassium 4.3 mmol/L (3.5-5.1); Protein, Total 7.1 g/dL (6.4-8.2); Sodium Level 141 mmol/L (136-145)
--- NOTE | 2020-10-13 07:05 | GALL_PTH ---
PATIENT: CACHORRO IRENE LOC: MS3 U#:[id number] AGE/SX: 55/F ROOM: [facility] RE10/12/[address]: Dr. Omari Helms MD : 1965 BED: 1 DIS: 10/14/2020 SPEC #: [id number] RECD: 10/15/20 08:19 STATUS: CLAUDIO HELMS #: [id number] ABDELRAHMAN: 10/13/20 07:[address]: Omari Helms DEPT: SURGICAL PATHOLOGY RECD BY: Sharona Borja ENTERED: 10/15/20 08:36 SP TYPE: ULISES ANDERSON DR: Dr. Erlin De Dios MD Tissues: Gallbladder, NOS Procedures: Surgery Specimen Level III HEADER OPERATION: Laparoscopic cholecystectomy with IOC PRE-OP DIAGNOSIS: Obstructive jaundice, cholecystitis TISSUE SUBMITTED: Gallbladder MICROSCOPIC DIAGNOSIS Gallbladder, cholecystectomy: Chronic cholecystitis and cholelithiasis. Benign pericystic lymph node. AM:jesus 10/16/2020 MICROSCOPIC DESCRIPTION Slides are reviewed. GROSS DESCRIPTION Received is one container labeled with the patient's name and designated gallbladder. The specimen consists of a gallbladder measuring 8 cm in length and up to 4 cm in diameter. The external surface is pink-kee, smooth and glistening for the most part. Focally it is granular, hemorrhagic and contains cautery artifact. The gallbladder contains yellow-green bile and multiple brownish-black stones measuring in aggregate 3 x 3 x 1 cm and 0.1 to 1 cm in greatest dimension. The mucosa is bile-stained and without any mass lesions. The gallbladder wall measures up to 0.1 cm in thickness. Also present close to the cystic duct is an ovoid piece of brownish soft tissue measuring 0.7 cm in greatest dimension, a possible lymph node. [employer] sections from the gallbladder and the cystic duct including the entire possible lymph node are submitted in one cassette. / SJ:jesus 10/15/20 TC:3 CPT: 30706
--- NOTE | 2020-10-13 07:25 | NURSING ---
report given to Kelly. abx sent with pt. pt sent down to OR by [facility]. pt stable.
--- NOTE | 2020-10-13 07:30 | RAD_ITS ---
CLINICAL HISTORY: Female, 55 years old. Gallstones in a contracted gallbladder. PROCEDURE: CHOLANGIOGRAM - intraoperative FLUOROSCOPY TIME (if supplied): 8 seconds TECHNIQUE: Fluoroscopic guidance was provided in the OR during a intraoperative cholangiogram. The 54 provided. Images demonstrate injection of contrast via the cystic duct stump. There is filling of the intra and extrahepatic bile ducts without evidence for stricture, dilatation or filling defect. There is free spillage of contrast into the duodenum. Please refer to the operative report for further details. RAD/Cholangiogram/ O R,Initial IMPRESSION: Fluoroscopy provided during an intraoperative cholangiogram, as above. Electronically Signed: Fili Carmen DO at 9:55 EST Tel [phone], Service support ,
[2020-10-13] MEDS: Bupivacaine Mpf 0.5% 30 ML VIAL (07:44)
--- NOTE | 2020-10-13 08:47 | OP.PCM_ITS ---
Problem List (1) Obstructive jaundice Status: Acute (2) Cholecystitis Status: Acute Report of Operation Date of Procedure: 10/13/20 Pre-Operative Diagnosis: Acute cholecystitis Post-Operative Diagnosis: 1. Acute cholecystitis. 2. Small bowel enterotomy Surgery/Procedure Performed:: 1. Laparoscopic cholecystectomy with cholangiogram. 2. Repair of small bowel enterotomy Specimen's removed: Gallbladder and contents Description of Procedure: After obtaining informed consent patient was brought back to the operating room. General anesthesia was induced. The abdomen was prepped and draped in usual sterile fashion. A small midline incision was made superior to the umbilicus and deepened to the level of fascia. The fascia was elevated and incised. Next an area of small bowel was mistaken for peritoneum and a small enterotomy was created. The small bowel was delivered through the incision and the enterotomy was closed with a running 3-0 chromic suture and interrupted 3-0 silk sutures to imbricate the suture line. This was done in a transverse fashion and there was a good lumen with no leakage of bilious contents. This was reduced into the abdomen. 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 The small bowel had been herniating through this defect. Finger sweep was performed and the Holder trocar was placed into the abdomen. The balloon was inflated. The abdomen was inflated to 15 mmHg. Next a camera was introduced into the abdomen and the abdomen was inspected. Next under direct visualization three 5-mm ports were placed one subxiphoid and 2 subcostal. Next the gallbladder was elevated and retracted toward the right shoulder. The peritoneum was stripped from the gallbladder. The infundibulum was located and retracted laterally. Next the triangle of Calot was dissected and the cystic duct and cystic artery were identified. Cholangiograms were performed. The Chang clamp was used to clamp across the infundibulum and the catheter needle w as inserted into the gallbladder. Under fluoroscopy contrast was instilled into the gallbladder and the common duct, cystic duct as well as proximal hepatic ducts were identified. There was good filling of the duodenum. There were no filling defects noted in the common bile duct. The clamp was removed as well as the needle and the infundibulum was grasped once more. Three hemolock clips were placed across the cystic duct. The cystic duct was then divided leaving 2 clips on the stump. The cystic artery was clipped and divided in the same fashion. The hook cautery was then used to take the gallbladder off of the gallbladder bed. Hemostasis was obtained. Gallbladder fossa was irrigated and no active bleeding or bile leakage was noted. Next the camera was introduced in the subxiphoid port. An Endopouch bag was placed through the umbilical port and the gallbladder was placed into it. The gallbladder was then removed through the umbilical incision. The camera was then reinserted through the umbilical port. The gallbladder fossa was inspected once more and noted to be hemostatic with no leaking bile. The abdomen was suctioned dry. The small bowel enterotomy was inspected once more and it appeared to be clean with no leakage of succus or bile. It appeared that there was peristalsis on both sides and it appeared viable with no ecchymosis or necrosis. The 5 mm ports were removed under direct visualization. The umbilical port was then removed and the air was removed from the abdomen. Next using an 0 Vicryl suture the umbilical fascia was closed in a [id number] fashion. The umbilical port site was irrigated local anesthetic was administered to all the incisions. All the incisions were closed with interrupted subcuticular 4-0 Monocryl sutures followed by Steri- Strips and dressings. The patient was awoken and taken to PACU in stable condition. - Complications Small bowel enterotomy closed with suture repair - Admit VTE Documentation VTE Mechan Device Prophylaxis: SCD's
[2020-10-13] MEDS: Lactated Ringers 1,000 ML 100 ML IV ×2 (09:07→14:30)
[2020-10-13] MEDS: oxyCODONE 5 MG Tablet PO (12:36)
[2020-10-14] MEDS: Lactated Ringers 1,000 ML 100 ML IV (00:02)
[2020-10-14 01:37] VITALS: BP 107/52; PULSE 81; RESP 16; TEMP 37.1; O2SAT 93
[2020-10-14 05:38] VITALS: BP 117/55; PULSE 73; RESP 18; TEMP 37.1; O2SAT 100
[2020-10-14] MEDS: Pantoprazole Sodium 20 MG Tablet PO (05:43)
[2020-10-14 06:22] LABS: Absolute Lymphocyte Count 2.11 X10^3/uL (0.83-4.51); Basophil# 0.01 X10^3/uL; Basophil% 0.1 % (0-1); Hematocrit 34.4 % (37-47); Hemoglobin 11.2 g/dL (12.0-15.0); Lymphocyte # 2.11 X10^3/ul (4.0); Lymphocyte % 13.1 % (19-41); Mean Corp Hgb Conc 32.6 g/dL (32-36); Mean Corpuscular Hgb 28.4 pg (27.0-32.0); Mean Corpuscular Volume 87.3 fL (81-99); Mean Platelet Vol. 11.8 fl (6.2-12.0); Monocyte# 0.96 X10^3/uL; NRBC Flagged by Analyzer 0 % (0-5); Neutrophil # 12.95 X10^3/uL (2.7-7.7); Neutrophil % 80.2 % (47-70); Platelet Count 207 K/mm3 (150-450); RBC Distribution Width CV 13.4 % (11.6-14.6); RBC Distribution Width SD 42.5 fl (35.1-43.9); Red Blood Count 3.94 M/mm3 (4.2-5.4); White Blood Count 16.1 K/mm3 (4.4-11.0)
[2020-10-14 06:56] LABS: AST(SGOT) 96 U/L (15-37); Alanine Aminotransfer ALT/SGPT 234 U/L (13-56); Alkaline Phosphatase 87 U/L (45-117); Anion Gap 5 (5-15); BUN 12 mg/dL (7-18); BUN/Creat Ratio 13.4 RATIO (10-20); Calcium,Total 8.3 mg/dL (8.5-10.1); Chloride 110 mmol/L (98-107); EST Glomerular Filtration Rate 70 mL/min (>60); Est Glom Filt Rate - Afr Amer 84 mL/min (>60); Estimated Creatinine Clearance 51.92 ml/min; Glucose 98 mg/dL (74-106); Potassium 4.1 mmol/L (3.5-5.1); Sodium Level 142 mmol/L (136-145)
--- NOTE | 2020-10-14 07:37 | PCM.PN.SRG ---
Patient Problems: Active and Suspected Problems Obstructive jaundice (Acute) Cholecystitis (Acute) Cholelithiasis (Acute) Subjective: Patient says she is improving this morning. She is having minimal pain which she rates at a 1 or 2. She is passing some flatus. She had no nausea or vomiting with clear liquids. - Physical Exam Vitals/I&O's: Vital Signs Temp Pulse Resp BP Pulse Ox 98.8 F 73 18 117/55 L 100 10/14/20 05:38 10/14/20 05:38 10/14/20 05:38 10/14/20 05:38 10/14/20 05:38 Oxygen Flow Rate (L/min) 2 Oxygen Delivery Method Room Air Weight: 211 lb 13 oz Body Mass Index (BMI) 40.3 Intake and Output for Last 24 Hours 10/12/20 10/13/20 10/14/20 23:59 23:59 23:59 Intake Total 1106 / 1106 3226 / 3626 1603.33 / 1603.33 Output Total 1400 / 2000 1700 / 1700 Balance 1106 / 656 1826 / 1626 -96.67 / -96.67 General: Alert, Oriented x3 Neck: No JVD Lungs: Normal air movement Cardiovascular: Regular rate Abdomen: Soft, Non Tender, Non-Distended Microbiology Past 72 Hours 10/12/20 16:57 Mucosa - Nose SARS-CoV-2 Antigen (Rapid) - Final Laboratory Results 10/14/20 05:25: WBC 16.1 H, RBC 3.94 L, Hgb 11.2 L, Hct 34.4 L, MCV 87.3, MCH 28.4, MCHC 32.6, RDW Std Deviation 42.5, RDW Coeff of Laila 13.4, Plt Count 207, MPV 11.8, Immature Gran % (Auto) 0.600, Neut % (Auto) 80.2 H, Lymph % (Auto) 13.1 L, [place] % (Auto) 6.0, Eos % (Auto) 0.0, Baso % (Auto) 0.1, Absolute Neuts (auto) 13.0 H, Absolute Lymphs (auto) 2.11, Nucleated RBC % 0 10/14/20 05:25: Sodium 142, Potassium 4.1, Chloride 110 H, Carbon Dioxide 27.0, Anion Gap 5, BUN 12, Creatinine 0.90, Estim Creat Clear Calc 51.92, Est GFR (MDRD) Af Amer 84, Est GFR (MDRD) Non-Af 70, BUN/Creatinine Ratio 13.4, Glucose 98, Calcium 8.3 L, Total Bilirubin 1.10 H, AST 96 H, ALT 234 H, Alkaline Phosphatase 87, Total Protein 6.0 L, Albumin 3.0 L, Globulin 3.0, Albumin/Globulin Ratio 1.0 Current Medications Acetaminophen (Acetaminophen 325 Mg Tablet) 650 mg PO Q4H PRN PRN PRN Reason: Pain 1-10 or Fever Lactated Ringer's () 1,000 mls @ 100 mls/hr IV .Q10H [facility] Last Admin: 10/14/20 00:02 Dose: 100 mls/hr Documented by: Morphine Sulfate (Morphine 2 Mg/Ml Syringe) 2 - 4 mg IV Q2H PRN PRN PRN Reason: Pain Score 4-10 Last Admin: 10/12/20 19:35 Dose: 2 mg Documented by: Ondansetron HCl (Ondansetron 4 Mg/2 Ml Vial) 4 mg IV Q6H PRN PRN PRN Reason: NAUSEA Oxycodone HCl (Oxycodone 5 Mg Tablet) 5 - 10 mg PO Q4H PRN PRN PRN Reason: Pain Score 4-10 Last Admin: 10/13/20 12:36 Dose: 5 mg Documented by: Pantoprazole Sodium (Pantoprazole Sodium 20 Mg Tablet) 20 mg PO DAILY [facility] Last Admin: 10/14/20 05:43 Dose: 20 mg Documented by: Sodium Chloride (0.9% Saline Lock 10 Ml Syringe) 10 - 40 ml IV UD PRN PRN Reason: SALINE FLUSH Medical Necessity - Tobacco Use Smoking Status: Never smoker Assessment/Plan All Active Problems Obstructive jaundice (Acute) Cholecystitis (Acute) Cholelithiasis (Acute) 55-year-old female status post laparoscopic cholecystectomy 1. Patient will be advanced to regular diet and if she tolerates that she may be discharged home. I informed her to follow-up and call me if there are any issues before follow-up. The patient should not return to work and I will fill out her paperwork at her follow-up appointment. Omari Helms MD Pager: [facility] [address] [place] [address], [address] [place] [address] Office:
--- NOTE | 2020-10-14 07:40 | DCINST_ITS ---
Discharge Diet: Light diet - advance as tolerated Discharge Activity: Return to Normal Activity, May Not Drive - for 2-3 days or while taking narcotic pain medicataions., May Shower Lifting Restrictions: 20 lbs Additional Activity Instructions:: Pain medication may cause nausea. You should typically eat light foods as you take your pain medications. Pain medication may also cause constipation. If this is a problem for you, please discuss with your doctor. Call your doctor if your incision/area has: Continuous Slow Oozing, Sudden Increased Bleeding, Increased Pain/ Swelling, Increased Redness, Foul Smelling Discharge, Fever of 101 or Higher Call your doctor if you observe: Fever of 101 or Higher Suture Line Care: Avoid Pulling/Pushing, Avoid Pinching/Bending Additional Dressing/Incision Instructions:: Leave operative bandaids on for 2 days. When you remove dressing, leave Steri-Strips on until your follow-up appointment, or until the Steri-Strips fall off on their own. Allergies/Adverse Reactions: Allergies latex Allergy (Verified 10/12/20 13:31) Rash adhesive tape Adverse Reaction (Verified 10/12/20 13:31) BLISTERS codeine Adverse Reaction (Verified 10/12/20 13:31) Vomiting iodine Adverse Reaction (Verified 10/12/20 13:31) Rash DOES OK WITH PRE-MEDS iron Adverse Reaction (Verified 10/12/20 13:31) FEVER,VOMITING Penicillins Adverse Reaction (Verified 10/12/20 13:31) Vomiting Medications to take at Discharge Omeprazole [Prilosec] 20 mg PO DAILY 11/09/13 Albuterol Inhaler [Ventolin Hfa] 1 puff INHALATION Q4H PRN PRN 07/11/15 Calcium Phosphate Trib/Vit D3 [Caltrate Gummy Bites] 2 ea PO DAILY 03/25/19 Potassium (Otc) [Potassium OTC] 99 mg PO DAILY 03/25/19 Acetaminophen [Tylenol Tablet] 650 mg PO Q4H PRN PRN tablet 10/14/20 Oxycodone [Oxyir] 5 mg PO Q4H PRN PRN 3 Days #15 tablet 10/14/20 The following prescriptions were given: Oxycodone [Oxyir] 5 mg PO Q4H PRN PRN 3 Days #15 tablet PRN Reason: Pain Score 4-10 Transmission Status: Sent to [id number] Primary Care Physician: Erlin De Dios MD [Primary Care Provider] - Test Results: Test results from this visit will be discussed in further detail at your follow- up appointment, if applicable. Please Follow Up With: Omari Helms MD When: Please call to schedule 2 week follow up appointment. [phone]
--- NOTE | 2020-10-14 07:41 | DS.PCM_ITS ---
Discharge Date and Diagnosis Date of Admission: 10/12/20 Date of Discharge: 10/14/20 - Primary Discharge Diagnosis Acute Problems: Complete List of Medical Problems (Last Updated 04/13/19 @ 09:08 by Marivel Mirza) Hx of cholecystectomy (Acute) Hospital Course and Treatment Imaging Results: Clinical Impression(s) from Imaging Studies Gallbladder Ultrasound 10/12/20 14:01 IMPRESSION: Nondistended gallbladder with mild wall thickening, multiple gallstones and one stone appears nonmobile in the gallbladder neck. Nondistended common bile duct. Normal liver, pancreas and right kidney. Electronically Signed: Kaitlyn Cabezas MD at 16:07 EST , Service support , ERCP X-Ray 10/12/20 17:10 IMPRESSION: ERCP in the OR. Electronically Signed: Fili Camren DO at 22:35 EST Tel [phone], Service support , Cholangiogram 10/13/20 07:30 IMPRESSION: Fluoroscopy provided during an intraoperative cholangiogram, as above. Electronically Signed: Fili Carmen DO at 9:55 EST Tel [phone], Service support , Operations: cholecystecomy, ERCP Procedures: None Summary of Care Provided: The patient is a 55 year old F presented with right upper quadrant pain and elevated liver enzymes. The patient was taken for ERCP and sludge was removed from her common bile duct. The following morning she was taken for laparoscopic cholecystectomy and her gallbladder was removed. There was inflammation from the gallbladder. The patient also had a spigelian hernia containing small bowel and there was a small enterotomy which was repaired during surgery. The following day the patient was started on clear liquid diet and continued on clears and observed. The following day she was advanced to regular diet and discharged home. - Physical Exam Vitals/I&O's: Vital Signs Temp Pulse Resp BP Pulse Ox 98.8 F 73 18 117/55 L 100 10/14/20 05:38 10/14/20 05:38 10/14/20 05:38 10/14/20 05:38 10/14/20 05:38 Oxygen Flow Rate (L/min) 2 Oxygen Delivery Method Room Air Weight: 211 lb 13 oz Body Mass Index (BMI) 40.3 Intake and Output for Last 24 Hours 10/12/20 10/13/20 10/14/20 23:59 23:59 23:59 Intake Total 1106 / 1106 3226 / 3626 1603.33 / 1603.33 Output Total 1400 / 2000 1700 / 1700 Balance 1106 / 656 1826 / 1626 -96.67 / -96.67 Microbiology Past 72 Hours 10/12/20 16:57 Mucosa - Nose SARS-CoV-2 Antigen (Rapid) - Final Laboratory Results 10/14/20 05:25: WBC 16.1 H, RBC 3.94 L, Hgb 11.2 L, Hct 34.4 L, MCV 87.3, MCH 28.4, MCHC 32.6, RDW Std Deviation 42.5, RDW Coeff of Laila 13.4, Plt Count 207, MPV 11.8, Immature Gran % (Auto) 0.600, Neut % (Auto) 80.2 H, Lymph % (Auto) 13.1 L, [place] % (Auto) 6.0, Eos % (Auto) 0.0, Baso % (Auto) 0.1, Absolute Neuts (auto) 13.0 H, Absolute Lymphs (auto) 2.11, Nucleated RBC % 0 10/14/20 05:25: Sodium 142, Potassium 4.1, Chloride 110 H, Carbon Dioxide 27.0, Anion Gap 5, BUN 12, Creatinine 0.90, Estim Creat Clear Calc 51.92, Est GFR (MDRD) Af Amer 84, Est GFR (MDRD) Non-Af 70, BUN/Creatinine Ratio 13.4, Glucose 98, Calcium 8.3 L, Total Bilirubin 1.10 H, AST 96 H, ALT 234 H, Alkaline Phosphatase 87, Total Protein 6.0 L, Albumin 3.0 L, Globulin 3.0, Albumin/Globulin Ratio 1.0 Current Medications Acetaminophen (Acetaminophen 325 Mg Tablet) 650 mg PO Q4H PRN PRN PRN Reason: Pain 1-10 or Fever Lactated Ringer's () 1,000 mls @ 100 mls/hr IV .Q10H [facility] Last Admin: 10/14/20 00:02 Dose: 100 mls/hr Documented by: Morphine Sulfate (Morphine 2 Mg/Ml Syringe) 2 - 4 mg IV Q2H PRN PRN PRN Reason: Pain Score 4-10 Last Admin: 10/12/20 19:35 Dose: 2 mg Documented by: Ondansetron HCl (Ondansetron 4 Mg/2 Ml Vial) 4 mg IV Q6H PRN PRN PRN Reason: NAUSEA Oxycodone HCl (Oxycodone 5 Mg Tablet) 5 - 10 mg PO Q4H PRN PRN PRN Reason: Pain Score 4-10 Last Admin: 10/13/20 12:36 Dose: 5 mg Documented by: Pantoprazole Sodium (Pantoprazole Sodium 20 Mg Tablet) 20 mg PO DAILY [facility] Last Admin: 10/14/20 05:43 Dose: 20 mg Documented by: Sodium Chloride (0.9% Saline Lock 10 Ml Syringe) 10 - 40 ml IV UD PRN PRN Reason: SALINE FLUSH Discharge Diet: Light diet - advance as tolerated Discharge Activity: Return to Normal Activity, May Not Drive - for 2-3 days or while taking narcotic pain medicataions., May Shower Additional Activity Instructions:: Pain medication may cause nausea. You should typically eat light foods as you take your pain medications. Pain medication may also cause constipation. If this is a problem for you, please discuss with your doctor. Call your doctor if your incision/area has: Continuous Slow Oozing, Sudden Increased Bleeding, Increased Pain/ Swelling, Increased Redness, Foul Smelling Discharge, Fever of 101 or Higher Call your doctor if you observe: Fever of 101 or Higher Suture Line Care: Avoid Pulling/Pushing, Avoid Pinching/Bending Additional Dressing/Incision Instructions:: Leave operative bandaids on for 2 d ays. When you remove dressing, leave Steri-Strips on until your follow-up appointment, or until the Steri-Strips fall off on their own. Home Medications: Medications to take at Discharge Omeprazole [Prilosec] 20 mg PO DAILY 11/09/13 Albuterol Inhaler [Ventolin Hfa] 1 puff INHALATION Q4H PRN PRN 07/11/15 Calcium Phosphate Trib/Vit D3 [Caltrate Gummy Bites] 2 ea PO DAILY 03/25/19 Potassium (Otc) [Potassium OTC] 99 mg PO DAILY 03/25/19 Acetaminophen [Tylenol Tablet] 650 mg PO Q4H PRN PRN tablet 10/14/20 Oxycodone [Oxyir] 5 mg PO Q4H PRN PRN 3 Days #15 tablet 10/14/20 Following Prescriptions Were Given to Patient: Oxycodone [Oxyir] 5 mg PO Q4H PRN PRN 3 Days #15 tablet PRN Reason: Pain Score 4-10 Transmission Status: Sent to [facility] Primary Care Physician: Erlin De Dios MD [Primary Care Provider] - Please Follow Up With: Omari Helms MD When: Please call to schedule 2 week follow up appointment. [phone] Medical Necessity - Tobacco Use Smoking Status: Never smoker Meaningful Use Info Meaningful Use Diagnoses (Choose all that apply): None applicable
[2020-10-14 09:34] VITALS: BP 123/62; PULSE 73; RESP 18; TEMP 37.3; O2SAT 100
[2020-10-14 10:38] VITALS: BP 123/62; PULSE 73; RESP 16; TEMP 37.3; O2SAT 100
== END 2020-10-14 10:39 | disposition home or self-care (01) ==
LOC: ED 16:44 → AC 17:06 → MS3 10-15 07:07
PROVIDERS: Admitting Provider Surgery; Emergency Provider Emergency Medicine; PCP Family Medicine; Visit Provider Surgery
PROC: (CPT 43260; principal; 2020-10-12 17:15)
DX: K80.11 Calculus of gallbladder with chronic cholecystitis with obstruction (principal); R74.8 Abnormal levels of other serum enzymes; K91.71 Accidental puncture and laceration of a digestive system organ or structure during a digestive system procedure; Y65.8 Other specified misadventures during surgical and medical care; Y92.234 Operating room of hospital as the place of occurrence of the external cause; K43.9 Ventral hernia without obstruction or gangrene; E66.01 Morbid (severe) obesity due to excess calories; J45.909 Unspecified asthma, uncomplicated; Z68.41 Body mass index [BMI] 40.0-44.9, adult
CPT/HCPCS: 00790; 43262; 43264; 44602; 47563; 36415; 74300; 74328; 76000; 76705; 80053; 81001; 83690; 85025; 87426; 88304; 93005; 96361; 96374; 96375; 96376; 99218; 99251; 99285; J7030; J7120; G0378; G0463; J1610; J2405

== ENCOUNTER → 2020-11-20 14:22 | Outpatient (CLI) | payer OTHER, SELFPAY ==
--- NOTE | 2020-11-20 14:24 | CT_ITS ---
STUDY: CT ABDOMEN WITHOUT CONTRAST REASON FOR EXAM: Female, 55 years old. abd pain -- no contrast RADIATION DOSAGE (If Supplied By Facility): CTDIvol = ( 20.75 ) mGy, DLP = ( 682.55 ) mGycm TECHNIQUE: Transaxial images were obtained without intravenous contrast, and oral contrast. Sagittal and coronal images were reconstructed. Individualized dose optimization techniques were used for this CT. COMPARISON: None. FINDINGS: The study is limited due to lack of intravenous contrast. Lung bases clear. Unremarkable liver, spleen, adrenals, and pancreas on this unenhanced study. No radiopaque stone in the bilateral kidneys and included parts of the ureters. Gallbladder not seen and likely removed. Visualized bowel loops nonobstructed. No free air or free fluid. No adenopathy. No abdominal aortic aneurysm. Small fat-containing of medical hernia. Subcutaneous fat stranding in the ventral abdominal wall midline, which may be due to recent surgery. Cellulitis cannot be excluded. No discrete fluid collection to suggest an abscess. Multilevel thoracal lumbar spondylosis, most prominent at L5-S1. CT/Abdomen without IV Contrast IMPRESSION: Subtendinous fat stranding in the ventral abdominal wall, likely related to recent surgery. The possibility of cellulitis/phlegmon cannot be excluded. No discrete abscess. No other acute finding the lower chest and abdomen on this unenhanced study. Electronically Signed: Sagar Kamara MD at 1:30 EDT Tel , Service support ,
== END ==
PROVIDERS: PCP Family Medicine; Referring Provider Surgery; Visit Provider Surgery
DX: R10.9 Unspecified abdominal pain (principal)
CPT/HCPCS: 74150

== ENCOUNTER → 2021-04-04 16:39 | Outpatient (CLI) | payer OTHER, SELFPAY ==
[2021-04-04 17:36] LABS: Hematocrit 39.9 % (37-47); Hemoglobin 12.9 g/dL (12.0-15.0); Mean Corp Hgb Conc 32.3 g/dL (32-36); Mean Corpuscular Hgb 27.7 pg (27.0-32.0); Mean Corpuscular Volume 85.8 fL (81-99); Mean Platelet Vol. 10.9 fl (6.2-12.0); Platelet Count 273 K/mm3 (150-450); RBC Distribution Width CV 13.1 % (11.6-14.6); RBC Distribution Width SD 40.5 fl (35.1-43.9); Red Blood Count 4.65 M/mm3 (4.2-5.4); White Blood Count 7.4 K/mm3 (4.4-11.0)
[2021-04-04 18:05] LABS: ALB/GLOB Ratio 1.1 RATIO (0.9-2.4); AST(SGOT) 17 U/L (15-37); Alanine Aminotransfer ALT/SGPT 33 U/L (13-56); Albumin, Serum 3.8 g/dL (3.2-5.0); Alkaline Phosphatase 78 U/L (45-117); Anion Gap 6 (5-15); BUN 8 mg/dL (7-18); BUN/Creat Ratio 7.5 RATIO (10-20); Calcium,Total 8.3 mg/dL (8.5-10.1); Chloride 106 mmol/L (98-107); Creatinine, Serum 1.06 mg/dL (0.55-1.02); EST Glomerular Filtration Rate 57 mL/min (>60); Est Glom Filt Rate - Afr Amer 69 mL/min (>60); Globulin 3.6 g/dL (2.2-4.2); Glucose 99 mg/dL (74-106); Iron 60 ug/dL (50-170); Potassium 3.7 mmol/L (3.5-5.1); Protein, Total 7.4 g/dL (6.4-8.2); Sodium Level 139 mmol/L (136-145); Thyroid Stim Hormone (TSH) 1.91 uIU/mL (0.358-3.74)
[2021-04-04 18:07] LABS: Vitamin B12 471 pg/mL (211-911); Vitamin D,25 Hydroxy 29.6 ng/mL
[2021-04-04 18:21] LABS: Erythrocyte Sedimentation Rate 8 mm/hr (0-30)
== END ==
PROVIDERS: Family Medicine; PCP Family Medicine; Visit Provider Family Medicine
DX: R53.83 Other fatigue (principal)
CPT/HCPCS: 36415; 80053; 82306; 82533; 82607; 83540; 84443; 85027; 85652

== ENCOUNTER → 2022-02-18 | Outpatient (CLI) | payer OTHER, SELFPAY ==
--- NOTE | 2022-02-18 14:20 | RAD_ITS ---
EXAM: XR LEFT FOOT COMPLETE, 3 OR MORE VIEWS CLINICAL INDICATION: METATARSALGIA TECHNIQUE: Frontal, lateral and oblique views of the left foot. This report was created using [employer] report generation technology. COMPARISON: None. FINDINGS: BONES/JOINTS: Unremarkable. No acute fracture. No subluxation. Normal alignment. Preservation of the joint space. No sclerotic or destructive changes observed. SOFT TISSUES: Unremarkable. No soft tissue swelling or gas. No radiopaque foreign body. RAD/Foot min 3 Views IMPRESSION: Negative left foot x-rays. Electronically Signed: Connor Duggan MD at 17:56 EDT ,
[2022-02-18 18:05] LABS: Erythrocyte Sedimentation Rate 12 mm/hr (0-30)
[2022-02-18 18:06] LABS: Absolute Lymphocyte Count 2.26 X10^3/uL (0.83-4.51); Absolute Neutrophil Count 3.9 X10^3/uL (2.0-7.7); Basophil# 0.07 X10^3/uL; Eosinophil# 0.14 X10^3/uL; Hematocrit 41.8 % (37-47); Hemoglobin 13.4 g/dL (12.0-15.0); Lymphocyte # 2.26 X10^3/ul (0.83-4.51); Mean Corp Hgb Conc 32.1 g/dL (32-36); Mean Corpuscular Volume 87.4 fL (81-99); Mean Platelet Vol. 11.4 fl (6.2-12.0); Monocyte# 0.45 X10^3/uL; Monocyte% 6.6 % (0-10); NRBC Flagged by Analyzer 0 % (0-5); Neutrophil # 3.91 X10^3/uL (2.7-7.7); Neutrophil % 57.3 % (47-70); Platelet Count 229 K/mm3 (150-450); RBC Distribution Width CV 13.2 % (11.6-14.6); RBC Distribution Width SD 42.2 fl (35.1-43.9); Red Blood Count 4.78 M/mm3 (4.2-5.4); White Blood Count 6.8 K/mm3 (4.4-11.0)
[2022-02-18 18:48] LABS: ALB/GLOB Ratio 1.1 RATIO (0.9-2.4); AST(SGOT) 17 U/L (15-37); Alanine Aminotransfer ALT/SGPT 24 U/L (13-56); Albumin, Serum 3.9 g/dL (3.2-5.0); Alkaline Phosphatase 77 U/L (45-117); Anion Gap 7 (5-15); BUN 12 mg/dL (7-18); BUN/Creat Ratio 12.5 RATIO (10-20); Calcium,Total 9.1 mg/dL (8.5-10.1); Chloride 107 mmol/L (98-107); Creatinine, Serum 0.96 mg/dL (0.55-1.02); EST Glomerular Filtration Rate 64 mL/min (>60); Est Glom Filt Rate - Afr Amer 78 mL/min (>60); Globulin 3.4 g/dL (2.2-4.2); Glucose 92 mg/dL (74-106); Magnesium 2.4 mg/dL (1.6-2.6); Potassium 3.8 mmol/L (3.5-5.1); Protein, Total 7.3 g/dL (6.4-8.2); Sodium Level 139 mmol/L (136-145); Thyroid Stim Hormone (TSH) 1.38 uIU/mL (0.358-3.74)
[2022-02-18 20:06] LABS: Chlamydia Trachomatis by PCR Negative (Negative); Neisserai gonorrhoeae by PCR Negative (Negative); Probe Check PASS; Sample Adequacy Control PASS; Specimen Processing Control PASS
[2022-02-19 08:20] LABS: HIV - WCH Non-Reactive (Nonreactive); Hepatitis B Surface Antigen Non-Reactive (Nonreactive); Hepatitis C Antibody Non-Reactive (Nonreactive); Syphilis Antibodies Non-reactive
[2022-02-20 17:01] LABS: Hepatitis B Core Ab Total Negative (Negative)
== END | disposition home or self-care (01) ==
LOC: MTLAB 14:18
PROVIDERS: PCP Family Medicine; Referring Provider Family Medicine; Visit Provider Family Medicine
DX: M77.42 Metatarsalgia, left foot (principal); Z20.2 Contact with and (suspected) exposure to infections with a predominantly sexual mode of transmission
CPT/HCPCS: 73630; 80053; 83735; 84443; 85025; 85652; 86703; 86704; 86780; 86803; 87340; 87491; 87591

== ENCOUNTER → 2022-04-11 | Outpatient (CLI) | payer OTHER, SELFPAY ==
--- NOTE | 2022-04-11 06:44 | MRI_ITS ---
STUDY: MRI LEFT MIDFOOT WITH/WITHOUT CONTRAST REASON FOR EXAM: Plantar left foot lumps, painful bearing weight for 7 months. TECHNIQUE: Standarized fat and water weighted pulse sequences were obtained in all 3 orthogonal planes before and after intravenous administration of 18 milliliters of Clariscan. COMPARISON: Radiograph report 02/18/2022. FINDINGS: There is an osteochondral lesion of the talar dome (T1 sagittal images 16, 17), incompletely included in the [id number] with associated bone edema (inversion recovery sagittal images 15-17). There is a small talonavicular joint effusion (inversion recovery sagittal images 13, 14). Normal calcaneocuboid articulation. Normal navicular-cuneiform articulations. Normal intercuneiform articulations. Normal first tarsometatarsal articulation. Normal Lisfranc ligament. Normal second and third tarsometatarsal articulations. Normal cuboid fourth and cuboid fifth tarsometatarsal articulation. Normal first through fifth metatarsi. Normal tibialis anterior tendon. Normal extensor hallucis longus tendon. Normal extensor digitorum longus tendons. Normal peroneus longus tendon and distal insertion. Normal peroneus brevis tendon and distal insertion. Normal intrinsic muscles of the mid and forefoot region. Normal extensor digitorum brevis muscle. There is a well-defined mass in the plantar fascia at the level of the first metatarsal neck corresponding to the distal skin marker (T1 sagittal images 19, 20) with contrast enhancement (postcontrast T1 short axis images 17, 18) measuring 0.75 x 1.0 cm (AP x transverse). There is a small contrast enhancing mass in the plantar fascia at the level of the first tarsometatarsal joint corresponding to the proximal skin marker (postcontrast T1 short axis image 9) measuring 0.3 cm in transverse dimension. There is also a small mildly contrast enhancing mass at the level of the first tarsometatarsal joint also corresponding to the proximal skin marker (postcontrast T1 short axis image 7) measuring 0.4 cm in transverse dimension. There is a small intermetatarsal neuroma of the second webspace (T1 short axis image 23) measuring 0.3 cm in transverse dimension. MRI/Lower Ext Joint Only W/WO Cont IMPRESSION: Plantar fibromatosis. Small intermetatarsal neuroma of the second webspace. Osteochondral lesion of the talar dome. Small talonavicular joint effusion. Electronically Signed: Justin Fernández MD at 8:35 EDT ,
== END | disposition home or self-care (01) ==
PROVIDERS: PCP Family Medicine; Referring Provider Student in an Organized Health Care Education/Training Program; Visit Provider Student in an Organized Health Care Education/Training Program
DX: M72.2 Plantar fascial fibromatosis (principal); M79.672 Pain in left foot
CPT/HCPCS: 73723; A9575

== ENCOUNTER → 2022-04-21 | Outpatient (CLI) | payer OTHER, SELFPAY ==
[2022-04-21 10:08] LABS: Erythrocyte Sedimentation Rate 6 mm/hr (0-30)
[2022-04-21 10:10] LABS: Absolute Lymphocyte Count 2.27 X10^3/uL (0.83-4.51); Absolute Neutrophil Count 3.8 X10^3/uL (2.0-7.7); Basophil# 0.05 X10^3/uL; Basophil% 0.7 % (0-1); Eosinophil# 0.25 X10^3/uL; Eosinophils% 3.6 % (0-5); Hematocrit 38.9 % (37-47); Hemoglobin 12.7 g/dL (12.0-15.0); Lymphocyte # 2.27 X10^3/ul (0.83-4.51); Lymphocyte % 32.8 % (19-41); Mean Corp Hgb Conc 32.6 g/dL (32-36); Mean Corpuscular Hgb 28.4 pg (27.0-32.0); Mean Platelet Vol. 11.2 fl (6.2-12.0); Monocyte# 0.49 X10^3/uL; Monocyte% 7.1 % (0-10); NRBC Flagged by Analyzer 0 % (0-5); Neutrophil # 3.83 X10^3/uL (2.7-7.7); Neutrophil % 55.4 % (47-70); Platelet Count 218 K/mm3 (150-450); RBC Distribution Width CV 13.2 % (11.6-14.6); Red Blood Count 4.47 M/mm3 (4.2-5.4); White Blood Count 6.9 K/mm3 (4.4-11.0)
[2022-04-21 10:29] LABS: CRP 3.88 mg/L (0.0-3.0); Ferritin 11 ng/mL (8-252); Iron 39 ug/dL (50-170); Rheumatoid Factor < 10.0 IU/mL (<15); Uric Acid 4.4 mg/dL (2.6-6.0); Vitamin B12 411 pg/mL (211-911); Vitamin D,25 Hydroxy 23.7 ng/mL
[2022-04-22 14:08] LABS: PROEL- A/G Ratio 1.3 (0.7-1.7); PROEL- Albumin 3.7 g/dL (2.9-4.4); PROEL- Alpha-1 Globulin 0.2 g/dL (0.0-0.4); PROEL- Alpha-2 Globulin 0.8 g/dL (0.4-1.0); PROEL- Beta Globulin 1.1 g/dL (0.7-1.3); PROEL- Gamma Globulin 0.8 g/dL (0.4-1.8); PROEL- Globulin, Total 2.9 g/dL (2.2-3.9); PROEL- TOTAL PROTEIN 6.6 g/dL (6.0-8.5)
[2022-04-22 14:40] LABS: ANTINUCLEAR ANTIBODIES DIRECT Negative (Negative)
== END | disposition home or self-care (01) ==
LOC: MFPLAB 08:56
PROVIDERS: PCP Family Medicine; Visit Provider Family Medicine
DX: M79.672 Pain in left foot (principal)
CPT/HCPCS: 82306; 82607; 82728; 83540; 84165; 84550; 85025; 85652; 86038; 86140; 86431

== ENCOUNTER 2022-05-03 01:25 | Emergency (ER) | payer OTHER, SELFPAY ==
[2022-05-03 01:26] VITALS: BP 155/88; PULSE 96; RESP 17; TEMP 36.6; BMI 36.6
--- NOTE | 2022-05-03 01:52 | EDS_ITS ---
HPI History of Present Illness Chief Complaint: Lower Extremity Injury Narrative Narrative: Patient is a 57-year-old female with past medical history of recurrent left foot pain. 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 She states she is been seeing a specialist for this and she has tried symptomatic care such as plantar fascia and shoe inserts and stretching regimens. She states she has been taking [id number] ibuprofen with no symptom improvement. She states she has pain anytime she put pressure on the foot which makes it difficult to ambulate. She states that she cannot get into see the specialist for multiple weeks. She states based on the persistent pain she presents for evaluation [facility] Medical History (Updated 05/03/22 @ 02:[address] Quentin Carver, DO) Cholelithiasis Home Medications omeprazole 20 mg capsule,delayed release 20 mg PO DAILY acid reflux 11/09/13 [History Last Taken 10/12/20 0300] albuterol sulfate 90 mcg/actuation aerosol inhaler 1 puff inhalation Q4H PRN PRN Sob &/Or Wheezing 07/11/15 [History Last Taken Unknown] calcium phosphate 250 mg-vitamin D3 10 mcg (400 unit) chewable tablet 2 ea PO DAILY supplement 03/25/19 [History Last Taken 10/12/20 0300] potassium 99 mg tablet 99 mg PO DAILY supplement 03/25/19 [History Last Taken 10/12/20 0300] acetaminophen 325 mg tablet 650 mg PO Q4H PRN PRN Pain 1-10 Or Fever 10/14/20 [Rx Last Taken Unknown] cholestyramine (with sugar) 4 gram oral powder 4 gm PO TID #378 grams 11/12/20 [Rx Last Taken Unknown] oxycodone-acetaminophen 5 mg-325 mg tablet (Percocet) 1 tab PO Q6H PRN pain 3 days #12 tabs 05/03/22 [Rx Last Taken Unknown] Allergy/AdvReac Type Severity Reaction Status Date / Time latex Allergy Rash Verified 10/29/20 13:14 adhesive tape AdvReac BLISTERS Verified 10/29/20 13:14 codeine AdvReac Vomiting Verified 10/29/20 13:14 iodine AdvReac Rash Verified 10/29/20 13:14 iron AdvReac FEVER,VOMIT Verified 10/29/20 13:14 ING Penicillins AdvReac Vomiting Verified 10/29/20 13:14 Surgical History (Updated 03/10/22 @ 09:23 by Nina Bangura) h/o right knee scope History of endoscopic retrograde cholangiopancreatography (~10/2020) Hx of cholecystectomy S/P hernia repair Social History (Updated 11/12/20 @ 15:[address] Omari Helms MD) Smoking Status: Never smoker ROS ROS ED Constitutional Constitutional ED: Denies chills or fever(s) ENT ENT ED: Denies sore throat Cardiovascular Cardiovascular: Denies chest pain Respiratory/Chest Respiratory/Chest: Denies cough or dyspnea Gastrointestinal Gastrointestinal: Denies abdominal pain, diarrhea, nausea or vomiting Genitourinary Genitourinary ED: Denies dysuria Musculoskeletal Musculoskeletal: Reports other Details: Positive left foot pain ; Denies myalgias Integumentary Denies rash Neurologic Neurologic: Denies headache(s) Hematologic/Lymphatic Hematologic/Lymphatic: Denies easy bleeding or easy bruising EXAM Physical Exam Const Vital Signs: 05/03/22 01:26 Temperature 97.8 F Temperature Source Temporal Pulse Rate 96 Respiratory Rate 17 Blood Pressure 155/88 H Blood Pressure Mean 110 Positive well nourished and well developed General Appearance ED: well developed Eyes PERRL and EOMs intact bilaterally Neck supple Resp normal respiratory effort and clear to auscultation bilaterally Cardio regular rate and regular rhythm Extremity Extremity Narrative: Left lower extremity is neurovascularly intact. No obvious bony deformity or joint effusion. No ligamentous or tendon laxity noted. Along the plantar aspect of the left foot patient has 2 well-circumscribed circular lesions consistent with plantar neurofibromatosis that do not show any overlying erythema warmth streaking or discharge to suggest infection. Remainder the exam is normal Neuro oriented x3 and CN's II-XII intact bilaterally Sensorium / Orientation: alert Psych mental status grossly normal Skin Skin Narrative: Soft tissue changes to the plantar aspect of the left foot as documented above MDM MDM MDM Narrative Medical decision making narrative: Patient presented to the ER afebrile with a chronic condition. She is already had an MRI just 2 to 3 weeks ago which confirmed the plantar neurofibromatosis. She has no signs of infection or decreased blood flow on exam today. Therefore there is no need for repeat imaging or blood work. Patient was informed that this is a chronic condition we will not remove the neurofibromas in the ER as it is a nonemergent surgical procedure. As her main complaint was pain from the neurofibromas I did elect to medicate her with morphine which did help reduce her pain and therefore she will be given Percocet for home. As she states she has not been able to get into see the specialist I will provide a new bank worker for her to follow-up with but as this is a chronic condition without signs of infection or neurovascular compromise there is no need for work-up and she is otherwise safe for discharge. Discharge Plan Triage Chief Complaint: Lower Extremity Injury ED Provider: Quentin Carver Dx/Rx/DC Orders Clinical Impression: Neurofibromatosis, unspecified, Left foot pain, Difficulty walking Instructions: ED Tumor, Uncertain Cause Prescriptions: New oxycodone-acetaminophen [Percocet] 5-325 mg tablet 1 tab PO Q6H PRN (Reason: pain) 3 Days Qty: 12 0RF No Action cholestyramine (with sugar) 4 gram powder 4 gm PO TID Qty: 378 0RF Rx Instructions: administer w/meal; avoid other meds within 1hr before or 4-6hr after dose omeprazole 20 MG capsule 20 mg PO DAILY albuterol sulfate 1 INHALER inhaler 1 puff INHALATION Q4H PRN PRN (Reason: Sob &/Or Wheezing) potassium 99 MG tablet 99 mg PO DAILY calcium phosphate-vitamin D3 1 EACH tablet,chewable 2 ea PO DAILY acetaminophen 325 MG tablet 650 mg PO Q4H PRN PRN (Reason: Pain 1-10 Or Fever) 0RF Primary Care Provider: Junior Madsen Referrals: Junior Madsen MD [Primary Care Provider] - Maryuri Zimmerman DPM [Med Staff - Active Staff] - 3-5 Days Activity Restrictions/Additional Instructions: Please use the crutches to help with weightbearing as the pressure on your left foot leads to an exacerbation of your pain. Also please follow-up podiatry to discuss possible surgical intervention as you have failed previous symptomatic treatments. Disposition Disposition: Home, Self Care
[2022-05-03] MEDS: morphine 10 MG/ML Syringe IM (02:22)
[2022-05-03] MEDS: Ondansetron ODT 4 MG Tablet PO (02:22)
[2022-05-03 02:24] VITALS: BP 140/93; PULSE 80; RESP 17
== END 2022-05-03 02:26 | disposition home or self-care (01) ==
PROVIDERS: Emergency Provider Emergency Medicine; PCP Family Medicine; Visit Provider Emergency Medicine
DX: M79.672 Pain in left foot (principal); Q85.00 Neurofibromatosis, unspecified; R26.2 Difficulty in walking, not elsewhere classified
CPT/HCPCS: 96372; 99284

== ENCOUNTER 2022-06-27 07:28 | Day surgery (SDC) | payer OTHER, SELFPAY ==
[2022-06-18 15:13] LABS: Hematocrit 40.4 % (37-47); Hemoglobin 13.3 g/dL (12.0-15.0); Mean Corp Hgb Conc 32.9 g/dL (32-36); Mean Corpuscular Hgb 28.6 pg (27.0-32.0); Mean Corpuscular Volume 86.9 fL (81-99); Mean Platelet Vol. 11.5 fl (6.2-12.0); Platelet Count 285 K/mm3 (150-450); RBC Distribution Width CV 13.2 % (11.6-14.6); RBC Distribution Width SD 41.3 fl (35.1-43.9); Red Blood Count 4.65 M/mm3 (4.2-5.4); White Blood Count 6.5 K/mm3 (4.4-11.0)
[2022-06-18 15:42] LABS: AST(SGOT) 15 U/L (15-37); Alanine Aminotransfer ALT/SGPT 25 U/L (13-56); Albumin, Serum 3.7 g/dL (3.2-5.0); Alkaline Phosphatase 74 U/L (45-117); Anion Gap 7 (5-15); BUN 10 mg/dL (7-18); BUN/Creat Ratio 10.8 RATIO (10-20); Calcium,Total 9.4 mg/dL (8.5-10.1); Chloride 109 mmol/L (98-107); Creatinine, Serum 0.93 mg/dL (0.55-1.02); EST Glomerular Filtration Rate 66 mL/min (>60); Est Glom Filt Rate - Afr Amer 80 mL/min (>60); Globulin 3.7 g/dL (2.2-4.2); Glucose 93 mg/dL (74-106); Protein, Total 7.4 g/dL (6.4-8.2); Sodium Level 141 mmol/L (136-145)
--- NOTE | 2022-06-27 | IMM_PTH ---
PATIENT: CACHORRO IRENE [place] [facility] [place][id number] AGE/SX: 57/F ROOM: RE06/27/[address]: Dr. Malvin Rosenberg DPM : 1965 BED: DIS: 06/27/2022 SPEC #: [id number] RECD: 06/30/22 13:39 STATUS: CLAUDIO REQ #: [id number] ABDELRAHMAN: 06/27/22 00:[address]: Malvin Rosenberg DEPT: IMMUNOHISTOCHEMISTRY RECD BY: Breanne Dos Santos ENTERED: 06/30/22 13:42 SP TYPE: IMMUNO OTHR DR: Dr. Quentin Madsen MD Tissues: A - Fibrous tissue Procedures: SMA (add) CD31 (add) CD34 (add) DESMIN (add) FACTOR VIII (add) Vimentin (initial) S-100 (add) PHYSICIAN & INSTITUTION [place] [id number] SPECIMEN INFORMATION: Tissue Source: A ? Left plantar fibroma Clinical Info: Plantar fibroma, plantar fasciitis with second intermetatarsal neuroma Specimen Number: [id number] CPT code: 14443, 11651 x6 METHODOLOGY: Deparaffinized sections of prefer/formalin-fixed tissue or PAP/DQ stained slides are incubated with monoclonal/polyclonal antibodies/oligonucleotide probes. Localization is made via biotin free immunoperoxidase method. Appropriate controls are performed and reacted as expected. Results on target cell population are indicated in the following table: RESULTS: ANTIBODY / CLONE RESULT Block A Vimentin (V9) positive CD31 (MARILIN/70A) positive, in blood vessels Factor VIII (R Ag) positive, in blood vessels CD34 (QBEnd-10) positive, in blood vessels Actin (1A4) positive Desmin (CE-R-11) negative S-100 (4C4.9) negative These tests were developed and their performance characteristics determined by [facility]. They may not have been cleared or approved by the U.S. Food and Drug Administration. The FDA has determined that such clearance or approval is not necessary. The above immunohistochemical/dualISH markers are ordered and reviewed by the Pathologist. INTERPRETATION: A. 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 EFRAÍN:jesus 07/01/2022 Case has been reviewed in consultation with Dr. Mckeon who concurs with the above diagnosis. IDC:AM
[2022-06-27 07:59] VITALS: BP 152/65; PULSE 80; RESP 17; TEMP 36.4; O2SAT 98; BMI 35.5
--- NOTE | 2022-06-27 08:38 | RAD_ITS ---
STUDY: X-RAY - LEFT FOOT CLINICAL: Female, 57 years old. PLANTAR FASCIOTOMY TECHNIQUE: Multiple fluoroscopic spot view(s) of the foot. COMPARISON: February 18, 2022. FINDINGS: Plantar and posterior calcaneal heel spurs. Soft tissues calcifications noted. RAD/Foot min 3 Views IMPRESSION: Please correlate with clinical service Electronically Signed: Braeden Jiang MD at 20:12 EST ,
--- NOTE | 2022-06-27 09:00 | NEUR_PTH ---
PATIENT: CACHORRO IRENE LOC: [facility] [place] U#:[id number] AGE/SX: 57/F ROOM: RE06/27/[address]: Dr. Malvin Rosenberg DPM : 1965 BED: DIS: 06/27/2022 SPEC #: [id number] RECD: 06/27/22 11:11 STATUS: CLAUDIO REFreida #: [id number] ABDELRAHMAN: 06/27/22 09:[address]: Malvin Rosenberg DEPT: SURGICAL PATHOLOGY RECD BY: Sharona Borja ENTERED: 06/27/22 11:41 SP TYPE: NEUROMA OTHR DR: Dr. Quentin Madsen MD Tissues: A - NEUROMA B - Fibrous tissue Procedures: Surgery Specimen Level III Surgery Specimen Level IV HEADER OPERATION: Plantar fasciectomy, plantar fasciotomy with resection PRE-OP DIAGNOSIS: Plantar fibroma, plantar fasciitis with heel, second intermetatarsal neuroma TISSUE SUBMITTED: A - Left plantar fibroma, B - Left second intermetatarsal neuroma MICROSCOPIC DIAGNOSIS A. 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 See comment. B. 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 SJ:rg 07/01/2022 COMMENT A. Immunohistochemistry ([id number]) supports the above diagnosis. Case has been reviewed in consultation with Dr. Mckeon who concurs with the above diagnosis. IDC:AM MICROSCOPIC DESCRIPTION Slides are reviewed. GROSS DESCRIPTION A - Received in fixative is one container labeled with the patient's name and designated left plantar fibroma. The specimen consists of two pieces of kee to yellow, indurated tissue measuring in aggregate 6 x 2 x 1 cm. A kee, solid nodule is noted measuring 1 cm in diameter. The entire specimen is submitted in two cassettes. Cassette 1 contains the nodule. B - Received in fixative is one container labeled with the patient's name and designated left second intermetatarsal neuroma. The specimen consists of multiple irregular fragments of kee-pink to yellow soft tissue that in aggregate measure 3 x 3 x 0.3 cm. The specimen is totally submitted in one cassette. / EFRAÍN:jesus 06/27/2022 TC:1 CPT: 18829, 61902
--- NOTE | 2022-06-27 09:03 | DCINST_ITS ---
Discharge Instructions Diet Discharge Diet: Light diet - advance as tolerated Activity Discharge Activity: May Not Drive Weight Bearing Status: No weight bearing (No weightbearing left foot.) Keep extremity elevated above heart level: Left Leg Additional Activity Instructions:: Keep left foot elevated for at least 50 minutes of every hour. Dressing / Incision Call your doctor if your incision/area has: Continuous Slow Oozing, Sudden Increased Bleeding and Foul Smelling Discharge Call your doctor if you observe: Fever of 101 or Higher, Shortness of breath, Chest pain, Increased palpitations (irregular heartbeat), Calf discomfort and Uncontrolled pain Change Dressing in: do not change dressing Remove Dressing in: do not remove dressing Cleanse incision/area with: Keep Dressing Clean & Dry Follow Up Care Please Follow Up With: Malvin Rosenberg DPM When: within 1 week, sooner if needed. Test Results: Test results from this visit will be discussed in further detail at your follow- up appointment, if applicable. Discharge Plan Admission Attending Provider: Malvin Rosenberg Primary Care Provider: Junior Madsen Discharge Orders/Prescriptions Prescriptions: New oxycodone-acetaminophen [Percocet] 5-325 mg tablet 1 - 2 tab PO Q6H PRN (Reason: pain) 5 Days Qty: 24 0RF No Action omeprazole 20 MG capsule 20 mg PO DAILY albuterol sulfate 1 INHALER inhaler 1 puff INHALATION Q4H PRN PRN (Reason: Sob &/Or Wheezing) calcium phosphate-vitamin D3 1 EACH tablet,chewable 2 ea PO DAILY acetaminophen 325 MG tablet 650 mg PO Q4H PRN PRN (Reason: Pain 1-10 Or Fever) 0RF ascorbic acid (vitamin C) [Vitamin C] 500 mg Tablet Extended Release 500 mg PO DAILY cholecalciferol (vitamin D3) [Vitamin D3] 25 mcg (1,000 unit) Tablet 50 mcg PO DAILY Referrals / Follow Up: Junior Madsen MD [Primary Care Provider] - Disposition Disposition (needs filled in before D/C Order can be placed): Home, Self Care
--- NOTE | 2022-06-27 09:04 | OP.PCM_ITS ---
Report of Operation Date of Procedure: 06/27/22 Pre-Operative Diagnosis: Left foot: 2nd intermetatarsal neuroma, plantar fascii tis with infracalcaneal spur, and plantar fibromas Post-Operative Diagnosis: Same Surgery/Procedure Performed:: Plantar fasciotomy with resection of inf racalcaneal spur left foot Excision of 2nd intermetatarsal space neuroma, left foot Plantar fasciectomy left foot Surgeon: Malvin Rosenberg cashier tube room: Type of Anesthesia: Local and MAC Specimen's removed: 1. Left 2nd intermetatarsal space neuroma - sent to pathology 2. Excised plantar fascia left foot - sent to pathology Estimated Blood Loss (mL): 5mL Description of Procedure: Indications: This is a 57 year-old female who has chronic left heel pain due to plantar fascia and infracalcaneal spur, as well as pain to the 2nd intermetatarsal space and plantar fibromas on the plantar left foot. Xrays and MRI have been obtained pre operatively and reviewed.?She has undergone nonsurgical care, but symptoms persist. She would like to proceed with surgical intervention with procedures as noted above.?? The procedures were reviewed with her, as well as the goals, estimated recovery and the benefits vs risks with her.? All the consent forms were reviewed with her and she freely signed them. OPERATIVE PROCEDURE: The patient was brought back into the operating room and was in the supine position.? The patient received anesthesia per the anesthesiologist.? She was carefully placed in the supine position and a well-padded pneumatic tourniquet was applied around her left ankle.? A time-out was performed and the patient was properly identified and surgical plan was confirmed.? The patient did receive prophylactic antibiotics for this procedure, which was Clindamycin 900mg intravenous.?A total of 10mL of 2% Lidocaine with 1:100,000 epi was given as a local block to the left 2nd intermetatarsal space and then 20mL of 0.5% Bupivacaine plain was given to the plantar left heel and medial and lateral plantar nerves after the overlying skin was cleanse with 70% Isopropyl alcohol. The left lower extremity was scrubbed, prepped and draped in the usual aseptic fashion. The left foot was elevated and exsanguinated using an Esmarch bandaged and the left ankle pneumatic tourniquet was inflated to 250mmHg. Left 2nd intermetatarsal space neuroma excision: Attention was directed to the 2nd intermetatarsal space, where a longitudinal incision was made using a 15 blade on the dorsal aspect. Careful dissection was completed down to the deep intermetatarsal ligament which was carefully released. The neuroma was then identified. A large plantar neuroma was identified localized to the site, which was yellow and degenerative. There were findings consistent with perineural fibrosis to the lesion. This was carefully dissected out, removing the proximal nerve and also the distal branches to the 2nd and 3rd toes at the base of the toes. This was passed from the surgical site and was sent to pathology for further evaluation. The proximal nerve stump was healthy, viable and was carefully buried into the intrinsic musculature of the foot. All other tissue to the site appeared healthy and viable with no other abnormality present to this site. The site was flushed out with copious amounts of normal saline solution. The subcutaneous tissue was reapproximated using 3-0 Vicryl. The skin was reapproximated using 3-0 Nylon. Left Plantar Fasciotomy and resection of infracalcaneal spur: Attention was directed to the plantar fascia at the level of the origin on the inferior calcaneus. A skin incision was made to the medial hindfoot at the level of the origin of the plantar fascia on the inferior calcaneus. Careful dissection was completed down through the subcutaneous tissue layer. A plane was created superiorly and inferiorly around the plantar fascia. There was significant thickening, tightness, and fibrosis of the plantar fascia consistent with plantar fasciitis. The medial 50% of the plantar fascia was released via a plantar fasciotomy. The infracalcaneal spur was identified and was resected using a powered sagittal rasp, resection was confirmed using intraoperative fluoroscopy. The site was flushed out with copious amounts of normal saline solution. The skin was reapproximated using 3-0 Nylon. Left plantar fibroma excision / plantar fasciectomy: There was a large mass to the plantar medial band of the plantar fascia at the level of the plantar 1st metatarsal, and also another one which was smaller at the plantar 1st tarsometatarsal joint. A longitudinal skin incision (curvilinear) was made overlying the masses on the plantar foot. Careful dissection was completed down to the masses. They were noted to be contacted within the plantar fascia. The masses were excised, excising the medial band of the plantar fascia, taking wide margins. The tissue was passed from the surgical site and sent to pathology as specimen. The remaining tissue appeared healthy and viable. The site was flushed out with copious amounts of normal saline solution. The skin was reapproximated using 3-0 Nylon. The pneumatic tourniquet was deflated and there was immediate return of warmth and perfusion to the right foot with normal temperature gradient (total tourniquet time was 62 minutes). Capillary fill time was less than three seconds.? A dressing was applied, which consisted of adaptic, 4 x 4 gauze, Kerlix, and Sukumar bandages. Of note all vital structures, including all vital neurovascular structures and t endon structures were properly identified, protected and retracted as necessary throughout the above operative procedure. The patient was transported from the operating room to the recovery room with vital signs stable and in good condition.? Postoperative orders were placed.? Post operative instructions have been reviewed with her. No weightbearing left foot. Keep left foot elevated. Keep dressing clean, dry and intact. Prescribed Percocet for pain control post op. Follow up with me next week, sooner if needed. Post operative foot xrays were obtained of the left foot which confirmed resection of infracalcaneal spur.
[2022-06-27] MEDS: Clindamycin 900 MG/50 ML BAG 75 MG IV (09:10)
[2022-06-27] MEDS: Bupivacaine 0.25% 30 ML Vial (09:30)
[2022-06-27] MEDS: Lidocaine 2% /Epi 1:100 (20ml) 20 ML VIAL OPERA.SITE (09:30)
[2022-06-27 10:50] VITALS: BP 121/65; BP 152/65; PULSE 76; RESP 16; TEMP 36.6; O2SAT 99
[2022-06-27 11:00] VITALS: BP 121/67; BP 152/65; PULSE 69; RESP 16; O2SAT 100
--- NOTE | 2022-06-27 11:00 | RAD_ITS ---
STUDY: X-RAY - LEFT FOOT CLINICAL: Female, 57 years old. Postop. TECHNIQUE: 3 view(s) of the foot. COMPARISON: June 27, 2022 February 18, 2022 FINDINGS: Normal talus and tarsal bones. Again seen is bony densities in the region of the plantar spur. The plantar spur seen on the February 18, 2022 study is no longer present. Normal visualized subtalar, talonavicular, calcaneocuboid, tarsal and tarsometatarsal articulations. Normal metatarsi. Normal metatarsophalangeal joint of the great toe. Normal tibial and fibular sesamoid bones. Normal interphalangeal joint of the great toe. Normal phalanges of the great toe. Normal second through fifth metatarsophalangeal joints. Normal interphalangeal joints and phalanges of the lesser toes. The soft tissue structures are unremarkable. RAD/Foot min 3 Views IMPRESSION: Question surgical changes in the region of the underside of the calcaneus. The study is otherwise unchanged. Electronically Signed: Fili Carmen DO at 16:57 EST ,
[2022-06-27 11:15] VITALS: BP 117/58; BP 152/65; PULSE 73; RESP 16; O2SAT 100
[2022-06-27 11:27] VITALS: BP 117/58; BP 152/65; PULSE 70; RESP 16; TEMP 36.7; O2SAT 100
--- NOTE | 2022-06-27 12:05 | SUR.PHASEII ---
Called into room to check patient's arm. Has light red line directly from IV site, with blue bruising at IV site. No complaints of pain or itching and no swelling noted. Spoke to Dr. Carmen who states it could be from the IV morphine given in PACU, discontinue IV and monitor.
[2022-06-27 12:15] VITALS: BP 120/82; BP 152/65; PULSE 72; RESP 16; O2SAT 98
== END 2022-06-27 12:20 | disposition home or self-care (01) ==
LOC: SDC 07:30 → AC 07:31
PROVIDERS: PCP Family Medicine; Referring Provider Podiatrist; Visit Provider Podiatrist
PROC: (CPT 28119; principal; 2022-06-27 08:45)
DX: M72.2 Plantar fascial fibromatosis (principal); M77.32 Calcaneal spur, left foot; G89.29 Other chronic pain; G57.82 Other specified mononeuropathies of left lower limb; D21.22 Benign neoplasm of connective and other soft tissue of left lower limb, including hip; J45.909 Unspecified asthma, uncomplicated; Z79.899 Other long term (current) drug therapy
CPT/HCPCS: 28060; 28119; 64782; 36415; 73630; 76000; 80053; 85027; 88304; 88305; 88341; 88342; J7120; J2405

== ENCOUNTER 2022-08-22 17:54 | Emergency (ER) | payer OTHER, SELFPAY ==
[2022-08-22 17:57] VITALS: BP 141/78; PULSE 104; RESP 19; TEMP 36.9; O2SAT 96; BMI 35.9
--- NOTE | 2022-08-22 18:46 | EKG12_ITS ---
Test Reason : DYSRHYTHMIA Blood Pressure : / mmHG Vent. Rate : 090 BPM Atrial Rate : 090 BPM P-R Int : 108 ms QRS Dur : 080 ms QT Int : 356 ms P-R-T Axes : 049 015 031 degrees QTc Int : 435 ms Sinus rhythm with short KS Otherwise normal ECG Confirmed by AVERY ANGULO, DEB ([id number]), industrial editor ZAIN SUMMERS ([id number]) on 08/25/2022 12:07:38 PM Referred By: DAVID Confirmed By:DEB VARELA MD
[2022-08-22] MEDS: MethylPREDNISolone 125 MG/2 ML Vial IV (18:57)
[2022-08-22 18:58] VITALS: PULSE 113; RESP 22; RESP 24; O2SAT 96
[2022-08-22] MEDS: Albuterol 2.5 MG/3 ML VIAL.NEB. INHALATION (18:58)
[2022-08-22] MEDS: Ipratropium/Albuterol Sulfate 3 ML AMPUL.NEB INHALATION (18:58)
[2022-08-22 19:17] LABS: Absolute Lymphocyte Count 1.62 X10^3/uL (0.83-4.51); Absolute Neutrophil Count 10.4 X10^3/uL (2.0-7.7); Basophil# 0.05 X10^3/uL; Basophil% 0.4 % (0-1); Eosinophil# 0.02 X10^3/uL; Eosinophils% 0.2 % (0-5); Hematocrit 38.9 % (37-47); Lymphocyte # 1.62 X10^3/ul (0.83-4.51); Lymphocyte % 12.7 % (19-41); Mean Corp Hgb Conc 33.4 g/dL (32-36); Mean Corpuscular Hgb 27.8 pg (27.0-32.0); Mean Corpuscular Volume 83.3 fL (81-99); Mean Platelet Vol. 10.2 fl (6.2-12.0); Monocyte# 0.64 X10^3/uL; NRBC Flagged by Analyzer 0 % (0-5); Neutrophil # 10.37 X10^3/uL (2.7-7.7); Neutrophil % 81.1 % (47-70); Platelet Count 308 K/mm3 (150-450); RBC Distribution Width CV 13.3 % (11.6-14.6); RBC Distribution Width SD 40.3 fl (35.1-43.9); Red Blood Count 4.67 M/mm3 (4.2-5.4); White Blood Count 12.8 K/mm3 (4.4-11.0)
--- NOTE | 2022-08-22 19:25 | EDS_ITS ---
HPI History of Present Illness Chief Complaint: Shortness of Breath Informant: patient Narrative Narrative: This patient presents with cough and wheezing that does not seem to be responding to medications well. Patient does have a history of asthma and which directly impacts her symptoms. Patient states that she went to a constitution party at the end of July where somebody was influenza A positive. She started with flu type symptoms 2 days after [place]. She felt as though she was getting better and then she had what she describes as an asthma attack on New 's of the day after. She was seen by her doctor. She had negative influenza and COVID at that time. She then saw her doctor again yesterday. She was placed on prednisone about 24 hours ago. She was also started on doxycycline. She is on Tessalon Perles. She has albuterol inhaler but has no spacer and has no nebulizer. Although she has asthma, she intermittently uses her inhaler and does not need daily medications except when she is ill. She is not really having chest pain but she has tightness and wheezing with breathing. She has no history of DVT or PE. No hemoptysis. But in June she did have surgery on her left foot and still has a splint on. She states this is healing well, not hurting and not swelling. Her concern is that she started antibiotics and prednisone yesterday and is still having symptoms today. She states that she was not wheezing in the office when she was seen yesterday but is wheezing today now. [facility] Medical History Alcohol use Arthritis Asthma Cancer Cholelithiasis Gastric reflux History of steroid therapy Hypotension Low iron Migraine headache Non-smoker Post-menopausal Rash Restless legs Home Medications omeprazole 20 mg capsule,delayed release 20 mg PO DAILY acid reflux 11/09/13 [History Last Taken 10/12/20 0300] albuterol sulfate 90 mcg/actuation aerosol inhaler 1 puff inhalation Q4H PRN PRN Sob &/Or Wheezing 07/11/15 [History Last Taken Unknown] calcium phosphate 250 mg-vitamin D3 10 mcg (400 unit) chewable tablet 2 ea PO DAILY supplement 03/25/19 [History Last Taken 10/12/20 0300] acetaminophen 325 mg tablet 650 mg PO Q4H PRN PRN Pain 1-10 Or Fever 10/14/20 [Rx Last Taken Unknown] ascorbic acid (vitamin C) 500 mg tablet,extended release (Vitamin C ER) 500 mg PO DAILY 06/23/22 [History Last Taken Unknown] cholecalciferol (vitamin D3) 25 mcg (1,000 unit) tablet (Vitamin D3) 50 mcg PO DAILY 06/23/22 [History Last Taken Unknown] oxycodone-acetaminophen 5 mg-325 mg tablet (Percocet) 1 - 2 tab PO Q6H PRN pain 5 days #24 tabs 06/27/22 [Rx Last Taken Unknown] Allergy/AdvReac Type Severity Reaction Status Date / Time latex Allergy Rash Verified 08/22/22 17:56 adhesive tape AdvReac BLISTERS Verified 08/22/22 17:56 codeine AdvReac Vomiting Verified 08/22/22 17:56 iodine AdvReac Rash Verified 08/22/22 17:56 iron AdvReac FEVER,VOMIT Verified 08/22/22 17:56 ING Penicillins AdvReac Vomiting Verified 08/22/22 17:56 Surgical History h/o right knee scope History of carpal tunnel surgery of right wrist History of endoscopic retrograde cholangiopancreatography (~10/2020) History of partial colectomy History of reversal of ileostomy Hx of cholecystectomy Hx of colonoscopy Hx of prior ablation treatment S/P hernia repair Social History Smoking Status: Never smoker ROS ROS ED Constitutional Constitutional ED: Denies fever(s) Eyes Eyes: Denies change in vision ENT ENT ED: Reports rhinorrhea; Denies sore throat Cardiovascular Cardiovascular: Denies chest pain, palpitations or racing heartbeat Respiratory/Chest Respiratory/Chest: Reports cough and dyspnea; Denies sputum Gastrointestinal Gastrointestinal: Denies diarrhea, nausea or vomiting Genitourinary Genitourinary ED: Denies dysuria Musculoskeletal Musculoskeletal: Denies myalgias Integumentary Denies rash Neurologic Neurologic: Denies headache(s) Endocrine Endocrinology: Denies polydipsia or polyuria Hematologic/Lymphatic Hematologic/Lymphatic: Denies lymphadenopathy Allergic/Immunologic Allergic/Immunologic ED: Denies urticaria EXAM Physical Exam Const Vital Signs: 08/22/22 17:57 08/22/22 18:12 08/22/22 18:58 Temperature 98.5 F Temperature Source Temporal Pulse Rate 104 H 113 H Respiratory Rate 19 H 22 H Respiratory Effort Short of Breath Respiratory Depth Normal Respiratory Pattern Normal Tachypnea Blood Pressure 141/78 H Blood Pressure Mean 99 Pulse Ox 96 Oxygen Delivery Method Room Air 08/22/22 18:58 08/22/22 22:40 Temperature Temperature Source Pulse Rate 97 Respiratory Rate 24 H 18 Respiratory Effort Normal Non-Labored Short of Breath Respiratory Depth Shallow Respiratory Pattern Tachypnea Blood Pressure Blood Pressure Mean Pulse Ox 96 99 Oxygen Delivery Method Room Air Room Air Positive well nourished and well developed Constitutional Narrative: Patient carries on a normal conversation without stopping. She has no trouble speaking. But she does have auditory wheezing General Appearance ED: well developed and NAD HEENT Reports moist mucous membranes; Denies dry mucous membranes Mouth ED: No dry mucous membranes Mouth: No dry mucous membranes Eyes General Eye ED: Negative for scleral icterus Neck no meningeal signs and no JVD Resp normal respiratory effort Auscultation: wheezes; Negative for rales or rhonchi Cardio regular rhythm Rate: tachycardic GI non-tender, non-distended and no masses Palpation: Negative for tender Back/Spine no CVA tenderness Extremity Extremity Narrative: She does have splint on her left ankle but there is no calf swelling tenderness or asymmetry. Neuro Sensorium / Orientation: alert Psych mental status grossly normal Skin no wounds MDM MDM MDM Narrative Medical decision making narrative: CTA of the chest read by radiology shows no acute process. No sign of pulmonary embolus or dissection. No infiltrative process. I also looked at this image and my independent interpretation shows no acute process also. Patient's white count is mildly up at 12.8 but this might be because she has been on steroids for about 24 hours. Rest of her CBC is normal. Electrolytes show minimally dropped potassium at 3.4 that should self correct. Glucose was 126. Her D-dimer was checked and was high at 1.77. Since patient's been having and waxing and waning symptoms for a few weeks we did did do a CTA as above. We walked the patient. Her saturations went from 97 up to 98% while walking. She is feeling better. She sounds better. I will get her a spacer for her MDI inhaler. I talked with the respiratory therapist about this and will put this in. Patient has doxycycline, steroids, cough medicine and albuterol available to her so no further scripts are given. We did discuss reasons to return. Lab Data Labs: Laboratory Results - last 24 hr 08/22/22 08/22/22 08/22/22 19:00 19:00 19:00 WBC 12.8 H RBC 4.67 Hgb 13.0 Hct 38.9 MCV 83.3 MCH 27.8 MCHC 33.4 RDW Std Deviation 40.3 RDW Coeff of Laila 13.3 Plt Count 308 MPV 10.2 Immature Gran % (Auto) 0.600 Neut % (Auto) 81.1 H Lymph % (Auto) 12.7 L Sharkey % (Auto) 5.0 Eos % (Auto) 0.2 Baso % (Auto) 0.4 Absolute Neuts (auto) 10.4 H Absolute Lymphs (auto) 1.62 Nucleated RBC % 0 D-Dimer Quant (PE/DVT) 0.77 H* Sodium 140 Potassium 3.4 L Chloride 107 Carbon Dioxide 25.0 Anion Gap 8 BUN 12 Creatinine 1.03 H Estim Creat Clear Calc 53.29 Est GFR (MDRD) Af Amer 71 Est GFR (MDRD) Non-Af 59 L BUN/Creatinine Ratio 11.7 Glucose 126 H Calcium 9.2 Radiography Diagnostic Testing: Clinical Impression(s) from Imaging Studies Chest CTA 08/22/22 19:36 IMPRESSION: No acute abnormalities, without a demonstrated pulmonary embolism or arterial dissection. Electronically Signed: Malvin Gudino MD at 21:46 EST Reading Location ID and State: [facility] / [place] , Service support , EKG Initial EKG: Comments: My independent interpretation of the patient's EKG that is done for dyspnea shows sinus rhythm with somewhat short NM interval. Overall rate is now normal at 90. I do not see any ventricular ectopy. There is no acute ST elevation or depression. NM interval slightly short of 108 ms. QRS duration and QTc is normal. The EKG is overall similar to 13 October 2020. Discharge Plan Triage Chief Complaint: Shortness of Breath ED Provider: Marvel Buchanan Dx/Rx/DC Orders Clinical Impression: Asthma exacerbation Instructions: ED Bronchitis with Wheezing (Adult) Prescriptions: No Action omeprazole 20 MG capsule 20 mg PO DAILY albuterol sulfate 1 INHALER inhaler 1 puff INHALATION Q4H PRN PRN (Reason: Sob &/Or Wheezing) calcium phosphate-vitamin D3 1 EACH tablet,chewable 2 ea PO DAILY acetaminophen 325 MG tablet 650 mg PO Q4H PRN PRN (Reason: Pain 1-10 Or Fever) 0RF ascorbic acid (vitamin C) [Vitamin C] 500 mg Tablet Extended Release 500 mg PO DAILY cholecalciferol (vitamin D3) [Vitamin D3] 25 mcg (1,000 unit) Tablet 50 mcg PO DAILY oxycodone-acetaminophen [Percocet] 5-325 mg tablet 1 - 2 tab PO Q6H PRN (Reason: pain) 5 Days Qty: 24 0RF Primary Care Provider: Junior Madsen Referrals: Junior Madsen MD [Primary Care Provider] - 3-5 Days if not improving Disposition Disposition: Home, Self Care
[2022-08-22 19:34] LABS: D-Dimer Quantitative (DVT/PE) 0.77 FEU/ug/m (0.27-0.49)
--- NOTE | 2022-08-22 19:36 | CT_ITS ---
STUDY: CTA CHEST REASON FOR EXAM: Female, 57 years old. PE RADIATION DOSAGE (If Supplied By Facility): CTDIvol = ( 12.04 ) mGy, DLP = ( 462.49 ) mGycm TECHNIQUE: The examination was performed with the intravenous administration of IV 100mL Isovue-370. Post-processing of the angiographic images was performed, with multiplanar reformation and 3D reconstruction. Individualized dose optimization techniques were used for this CT. COMPARISON: None. FINDINGS: Normal enhancement of the main pulmonary artery and right and left pulmonary arteries. Normal enhancement of the bilateral peripheral pulmonary arteries. There is no demonstrated pulmonary embolism. Normal thoracic aorta and visualized great vessels. There is no demonstrated aortic dissection. Normal heart and pericardium. Normal mediastinum. Normal hilar regions. Normal visualized trachea and bronchi. The lungs are well expanded. Normal pulmonary parenchyma. Normal pleura. Normal chest wall structures. Dorsal spine demonstrates mild spondylosis Gallbladder not visualized consistent with cholecystectomy CT/CTA Chest W/WO Contrast IMPRESSION: No acute abnormalities, without a demonstrated pulmonary embolism or arterial dissection. Electronically Signed: Malvin Gudino MD at 21:46 EST Reading Location ID and State: [facility] / [place] , Service support ,
[2022-08-22 19:41] LABS: Anion Gap 8 (5-15); BUN 12 mg/dL (7-18); BUN/Creat Ratio 11.7 RATIO (10-20); Calcium,Total 9.2 mg/dL (8.5-10.1); Chloride 107 mmol/L (98-107); Creatinine, Serum 1.03 mg/dL (0.55-1.02); EST Glomerular Filtration Rate 59 mL/min (>60); Est Glom Filt Rate - Afr Amer 71 mL/min (>60); Estimated Creatinine Clearance 53.29 ml/min; Glucose 126 mg/dL (74-106); Potassium 3.4 mmol/L (3.5-5.1); Sodium Level 140 mmol/L (136-145)
--- NOTE | 2022-08-22 19:41 | CPS ---
x1 Albuterol given to pt. in ER as well
[2022-08-22] MEDS: DiphenhydrAMINE 50 MG/ML Syringe 25 MG IV (19:47)
[2022-08-22 22:10] VITALS: O2SAT 97
[2022-08-22 22:40] VITALS: PULSE 97; RESP 18; O2SAT 99
== END 2022-08-22 23:00 | disposition home or self-care (01) ==
PROVIDERS: Emergency Provider Emergency Medicine; PCP Family Medicine; Visit Provider Emergency Medicine
DX: J45.901 Unspecified asthma with (acute) exacerbation (principal); J11.1 Influenza due to unidentified influenza virus with other respiratory manifestations; R06.02 Shortness of breath
CPT/HCPCS: 71275; 80048; 85025; 85379; 93005; 94640; 96374; 96375; 99252; 99283; Q9967; A4216; G0463

== ENCOUNTER → 2023-07-06 | Outpatient (CLI) | payer OTHER, SELFPAY ==
[2023-07-06 12:51] LABS: Absolute Lymphocyte Count 2.05 X10^3/uL (0.83-4.51); Absolute Neutrophil Count 3.8 X10^3/uL (2.0-7.7); Basophil# 0.06 X10^3/uL; Basophil% 0.9 % (0-1); Eosinophil# 0.27 X10^3/uL; Hematocrit 41.5 % (37-47); Hemoglobin 13.1 g/dL (12.0-15.0); Lymphocyte # 2.05 X10^3/ul (0.83-4.51); Lymphocyte % 30.3 % (19-41); Mean Corp Hgb Conc 31.6 g/dL (32-36); Mean Corpuscular Hgb 27.9 pg (27.0-32.0); Mean Corpuscular Volume 88.5 fL (81-99); Mean Platelet Vol. 11.1 fl (6.2-12.0); Monocyte# 0.53 X10^3/uL; Monocyte% 7.8 % (0-10); NRBC Flagged by Analyzer 0 % (0-5); Neutrophil # 3.84 X10^3/uL (2.7-7.7); Neutrophil % 56.7 % (47-70); Platelet Count 263 K/mm3 (150-450); RBC Distribution Width CV 13.3 % (11.6-14.6); RBC Distribution Width SD 43.1 fl (35.1-43.9); Red Blood Count 4.69 M/mm3 (4.2-5.4); White Blood Count 6.8 K/mm3 (4.4-11.0)
[2023-07-06 12:54] LABS: Vitamin B12 358 pg/mL (211-911); Vitamin D,25 Hydroxy 33.8 ng/mL
[2023-07-06 13:00] LABS: AST(SGOT) 14 U/L (15-37); Alanine Aminotransfer ALT/SGPT 22 U/L (13-56); Albumin, Serum 3.5 g/dL (3.2-5.0); Alkaline Phosphatase 75 U/L (45-117); Anion Gap 8 (5-15); BUN 11 mg/dL (7-18); BUN/Creat Ratio 11.2 RATIO (10-20); CRP 4.65 mg/L (0.0-3.0); Calcium,Total 8.8 mg/dL (8.5-10.1); Chloride 107 mmol/L (98-107); Creatinine, Serum 0.98 mg/dL (0.55-1.02); EST Glomerular Filtration Rate 62 mL/min (>60); Est Glom Filt Rate - Afr Amer 75 mL/min (>60); Ferritin 11 ng/mL (8-252); Globulin 3.6 g/dL (2.2-4.2); Glucose 106 mg/dL (74-106); Iron 56 ug/dL (50-170); Magnesium 2.3 mg/dL (1.6-2.6); Potassium 3.6 mmol/L (3.5-5.1); Protein, Total 7.1 g/dL (6.4-8.2); Sodium Level 140 mmol/L (136-145); Thyroid Stim Hormone (TSH) 2.62 uIU/mL (0.358-3.74)
== END | disposition home or self-care (01) ==
LOC: MFPLAB 10:33
PROVIDERS: PCP Family Medicine; Visit Provider Family Medicine
DX: D64.9 Anemia, unspecified (principal); R25.2 Cramp and spasm; E55.9 Vitamin D deficiency, unspecified
CPT/HCPCS: 36415; 80053; 82306; 82607; 82728; 83540; 83735; 84443; 85025; 86140

== ENCOUNTER → 2023-11-17 | Outpatient (CLI) | payer OTHER, SELFPAY ==
--- NOTE | 2023-11-17 12:35 | MRI_ITS ---
STUDY: MRI ARTHROGRAM OF RIGHT SHOULDER REASON FOR EXAM: Female, 58 years old. Evaluate for SLAP tear. TECHNIQUE: Standardized fat and water weighted pulse sequences were obtained in all 3 orthogonal planes after the intra-articular administration of 10 cc of a solution containing Clariscan contrast. Motion on the study compromises interpretation. COMPARISON: Shoulder arthrogram x-rays today and shoulder x-rays dated 11/03/2023. FINDINGS: Adequate joint distention with minimal extravasation of contrast. Supraspinatus and infraspinatus tendinosis without a partial thickness or full thickness tear (coronal series 5 images 6-13). Subscapularis tendinosis with thickening and increased signal intensity without a full thickness tear (axial series 4 images 7-11). Normal teres minor tendon. Normal supraspinatus muscle. Normal infraspinatus muscle. Normal subscapularis muscle. Normal teres minor muscle. Mild thinning of the articular cartilage of the glenohumeral joint (axial series 4 images 5-9). Normal humeral head and visualized proximal humerus. Normal biceps labral complex. Normal intracapsular long biceps tendon. Minimally displaced superior labral tear (coronal series 3 images 12-14, axial series 4 images 5-8). Normal capsulo- ligamentous complex. Normal rotator interval. Marked AC joint hypertrophy with AC joint effusion resulting in substantial narrowing of the subacromial-subdeltoid bursa (coronal series 7 images 8-13). There is a Type II morphology (curved), with a neutral orientation. Minimal contrast within the subacromial-subdeltoid bursa (coronal series 7 images 12-13). Normal visualized coracohumeral and coracoacromial ligaments. Normal quadrilateral space. Normal axillary space. Normal deltoid muscle. Normal trapezius muscle. MRI/Upper Ext Jt W/Contrast IMPRESSION: Supraspinatus, infraspinatus and subscapularis tendinosis without a partial thickness or full thickness tear. Mild arthrosis of the glenohumeral joint. Superior labral tear. Marked AC joint hypertrophy with AC joint effusion which results in substantial narrowing of the subacromial-subdeltoid bursa. Contrast within the subacromial-subdeltoid bursa. Electronically Signed: Santiago Polk MD at 15:26 EDT ,
--- NOTE | 2023-11-17 12:40 | RAD_ITS ---
STUDY: X-RAY - RIGHT SHOULDER REASON FOR EXAM: Female, 58 years old. POST ARTHROGRAM IMAGES TECHNIQUE: 4 view(s) of the shoulder. COMPARISON: None. FINDINGS: Normal glenohumeral articulation. Normal acromioclavicular joint. Normal acromion. Normal humeral head and visualized proximal humerus. Contrast is seen within the joint space. Normal visualized pulmonary apex. RAD/Shoulder min 2 Views IMPRESSION: Contrast is seen within the joint space following the right shoulder arthrogram. Electronically Signed: Santhosh Pineda MD at 10:55 EDT ,
[2023-11-17] MEDS: Lidocaine 2% (5ml sdv) 5 ML VIAL.MPF INFILT (13:01)
[2023-11-17] MEDS: Iopamidol 10 ML in Syringe 1 EACH 600 ML INTRAARTIC (13:03)
[2023-11-17] MEDS: Gadoterate Meglumine Diluted 10 ML, Iopamidol 5 ML, Lidocaine 1% (20 ml mdv) 5 ML, Epin... INTRAARTIC (13:03)
--- NOTE | 2023-11-17 13:10 | PRO.PCM_ITS ---
Procedure Report Date of Procedure: 11/17/23 Assessment & Plan Assessment/Plan (1) Right shoulder strain: QUALIFIERS: Encounter type: initial encounter Qualified Code(s): S46.911A - Strain of unspecified muscle, fascia and tendon at shoulder and upper arm level, right arm, initial encounter PLAN: PROCEDURE: Arthrogram-right shoulder ORDERING PROVIDER: Dr. Castano INDICATION: Female, 58 years old. Right shoulder strain. PROVIDER: Charlotte Naranjo APRN-[facility] CONSENT: The procedure as well as the benefits and possible complications including bleeding and infection were explained to the patient. Informed consent was obtained. TECHNIQUE: The patient was positioned supine. The overlying skin was prepped and draped in the usual sterile fashion. Following injection of local anesthetic with 2% lidocaine and under direct fluoroscopic guidance, a 22-gauge spinal needle was placed into the right glenohumeral joint space. 2 cc of Isovue 300 was injected for confirmation. Following this, 10 cc of arthrogram contrast (gadoterate, iopamidol, lidocaine, and epinephrine), compounded by pharmacy, was injected. All elements of maximal sterile barrier technique followed. Patient tolerated procedure well. IMPRESSION: Successful fluoroscopic guided right shoulder arthrogram. Procedures Radiology Radiology Xray Procedures: [id number] Arthrogram Shoulder
== END | disposition home or self-care (01) ==
LOC: RAD 12:32
PROVIDERS: PCP Family Medicine; Referring Provider Orthopaedic Surgery Sports Medicine; Visit Provider Orthopaedic Surgery Sports Medicine
DX: S46.911A Strain of unspecified muscle, fascia and tendon at shoulder and upper arm level, right arm, initial encounter (principal)
CPT/HCPCS: 23350; 73030; 73222; 77002; Q9967

== ENCOUNTER 2023-12-23 09:04 | Day surgery (SDC) | payer OTHER, SELFPAY ==
[2023-12-23] VITALS (9 sets, daily range): BP systolic 100–164; BP diastolic 65–146; PULSE 72–85; RESP 16–18; TEMP 36.2–37.2; O2SAT 96–100; BMI 35.0
--- NOTE | 2023-12-23 09:44 | EKG12_ITS ---
Test Reason : PRE-OP Blood Pressure : / mmHG Vent. Rate : 069 BPM Atrial Rate : 069 BPM P-R Int : 122 ms QRS Dur : 078 ms QT Int : 396 ms P-R-T Axes : 043 003 016 degrees QTc Int : 424 ms Normal sinus rhythm Normal ECG When compared with ECG of 22-AUG-2022 19:02, No significant change was found Confirmed by Herber Garza ([id number]), medical editor ZAIN SUMMERS ([id number]) on 12/30/2023 9:01:29 AM Referred By: Juan C Castano Confirmed By:Herber Garza
--- NOTE | 2023-12-23 09:47 | HP.PCM_ITS ---
HPI - General HPI Narrative CACHORRO IRENE, is a 58 F who presents of right shoulder arthroscopy subacromial decompression, possible biceps tenodesis. No changes to history and physical exam. Patient okay to proceed. Explained the risks alternatives benefits and postop care and narcotic counseling. Patient understands right shoulder Marked okay to proceed with surgery. MR#: [id number] Acct: [id number] Name: CACHORRO IRENE Rep #: [id number] : 1965 Provider: Dr. Juan C Castano MD Age/Sex: 58/F Location: [facility] [place].[facility] Status: Signed Intake Vital Signs 10/30/2415:09 11/17/2410:05 Height 5 ft 4 in 5 ft 4 in Intake Visit Reasons: RIGHT SHOULDER Chief Complaint: MRI REVIEW Accompanied by: Self Is patient in pain?: Yes Pain scale (1-10): 8 Allergies latex Allergy (Verified 11/19/23 09:11) Rashadhesive tape Adverse Reaction (Verified 11/19/23 09:11) BLISTERScodeine Adverse Reaction (Verified 11/19/23 09:11) Vomitingiodine Adverse Reaction (Verified 11/19/23 09:11) Rashiron Adverse Reaction (Verified 11/19/23 09:11) FEVER,VOMITINGPenicillins Adverse Reaction (Verified 11/19/23 09:11) Vomiting Medications omeprazole 20 mg capsule,delayed release 20 mg PO DAILY acid reflux 11/09/13 [History Confirmed 11/19/23] albuterol sulfate 90 mcg/actuation aerosol inhaler 1 puff inhalation Q4H PRN PRN Sob &/Or Wheezing 07/11/15 [History Confirmed 11/19/23] calcium phosphate 250 mg-vitamin D3 10 mcg (400 unit) chewable tablet 2 ea PO DAILY supplement 03/25/19 [History Confirmed 11/19/23] acetaminophen 325 mg tablet 650 mg (2 x 325 mg) PO Q4H PRN PRN Pain 1-10 Or Fever 10/14/20 [Rx Confirmed 11/19/23] ascorbic acid (vitamin C) 500 mg tablet,extended release (Vitamin C ER) 500 mg PO DAILY 06/23/22 [History Confirmed 11/19/23] cholecalciferol (vitamin D3) 25 mcg (1,000 unit) tablet (Vitamin D3) 1,000 unit PO BID 11/03/23 [History Confirmed 11/19/23] PFSH Medical History (Updated 11/19/23 @ 09:43 by Juan C Castano MD) Alcohol use Arthritis Arthrosis of right acromioclavicular joint Asthma Cancer Cholelithiasis Gastric reflux History of steroid therapy Hypotension Impingement of right shoulder Low iron Migraine headache Non-smoker Post-menopausal Rash Restless legs SLAP lesion of right shoulder Tendinosis of right rotator cuff Surgical History h/o right knee scope History of carpal tunnel surgery of right wrist History of endoscopic retrograde cholangiopancreatography (~10/2020) History of partial colectomy History of reversal of ileostomy Hx of cholecystectomy Hx of colonoscopy Hx of prior ablation treatment S/P hernia repair Social History Smoking Status: Never smoker HPI RIGHT SHOULDER Details: This documentation accurately reflects the service provided and the decisions made by me, Dr. Juan C Castano MD 11/19/23826. Part of today?s visit was documented by [ ], acting as scribe. CACHORRO IRENE is a 58 year old F here today for FU R shoulder MRI. 2-3 weeks FU cortisone injection as well. still lifting heavy car parts. injection helped for a couple days. now painful again. Ortho Exam General General: Yes no acute distress Neurologic: Yes alert and Yes oriented x3 Psychologic: Yes reasonable and appropriate Right Shoulder Skin/Wound: Yes CDI, No ecchymosis, No erythema and No swelling Testing: Positive Hawkin's, Neer's, Speed's, TTP Biceps, TTP AC Joint, empty can and cross arm; Negative Drop Arm or scapular winging SHOULDER: normal motor and sens to ax nerve, and MRU and AIN/PIN Supplemental Info [facility] [address] [place] [address] Upper Ext Jt W/Contrast MR#: [id number] Acct: [id number] Name: CACHORRO IRENE Rep #: [id number] : 1965 F 58 From: Santiago Polk MD PCP: Dr. Quentin Madsen MD Status: REG CLI Study: Upper Ext Jt W/Contrast Date of Exam: 11/17/23 Exam# [id number] Ordering Dr: Juan C Castano MD STUDY: MRI ARTHROGRAM OF RIGHT SHOULDER REASON FOR EXAM: Female, 58 years old. Evaluate for SLAP tear. TECHNIQUE: Standardized fat and water weighted pulse sequences were obtained in all 3 orthogonal planes after the intra-articular administration of 10 cc of a solution containing Clariscan contrast. Motion on the study compromises interpretation. COMPARISON: Shoulder arthrogram x-rays today and shoulder x-rays dated 11/03/2023. FINDINGS: Adequate joint distention with minimal extravasation of contrast. Supraspinatus and infraspinatus tendinosis without a partial thickness or full thickness tear (coronal series 5 images 6-13). Subscapularis tendinosis with thickening and increased signal intensity without a full thickness tear (axial series 4 images 7-11). Normal teres minor tendon. Normal supraspinatus muscle. Normal infraspinatus muscle. Normal subscapularis muscle. Normal teres minor muscle. Mild thinning of the articular cartilage of the glenohumeral joint (axial series 4 images 5-9). Normal humeral head and visualized proximal humerus. Normal biceps labral complex. Normal intracapsular long biceps tendon. Minimally displaced superior labral tear (coronal series 3 images 12-14, axial series 4 images 5-8). Normal capsulo- ligamentous complex. Normal rotator interval. Marked AC joint hypertrophy with AC joint effusion resulting in substantial narrowing of the subacromial-subdeltoid bursa (coronal series 7 images 8-13). There is a Type II morphology (curved), with a neutral orientation. Minimal contrast within the subacromial-subdeltoid bursa (coronal series 7 images 12-13). Normal visualized coracohumeral and coracoacromial ligaments. Normal quadrilateral space. Normal axillary space. Normal deltoid muscle. Normal trapezius muscle. MRI/Upper Ext Jt W/Contrast IMPRESSION: Supraspinatus, infraspinatus and subscapularis tendinosis without a partial thickness or full thickness tear. Mild arthrosis of the glenohumeral joint. Superior labral tear. Marked AC joint hypertrophy with AC joint effusion which results in substantial narrowing of the subacromial-subdeltoid bursa. Contrast within the subacromial-subdeltoid bursa. Electronically Signed: Santiago Polk MD at 15:26 EDT Reading Location ID and State: [address] [place] [address] , Service support , Coding Level of Care Code Off vis,est,level 4 Diagnoses Strain of right shoulder, initial encounter S46.911A Encounter type: initial encounter Tendinosis of right rotator cuff M67.813 Arthrosis of right acromioclavicular joint M19.011 Impingement of right shoulder M25.811 SLAP lesion of right shoulder S43.431A Assessment and Plan Assessment and Plan (1) Right shoulder strain: Status: Acute Qualifiers: Encounter type: initial encounter Qualified Code(s): S46.911A - Strain of unspecified muscle, fascia and tendon at shoulder and upper arm level, right arm, initial encounter Plan: 58-year-old female with right shoulder pain tendinosis impingement syndrome AC joint arthrosis and a tear of the superior labrum with mild glenohumeral joint space arthrosis. I explained the diagnosis prognosis different treatment opt ions including but not limited to rest ice anti-inflammatories physical therapy activity modifications ongoing cortisone injections although the first 1 was mostly ineffective. Surgery would be in the form of right shoulder arthroscopy subacromial decompression, possible biceps tenodesis. 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 Explained the recovery associated with this 2 weeks in the sling is 6 to possibly 12 weeks before going back to heavy lifting. Patient understands wants to go ahead with surgery signed a consent form for today. Pros and cons risks and benefits were discussed with the patient including but not limited to infection, pain, stiffness, bleeding, damage to surrounding structures, neurovascular injury, recurrence or retear, failure or wear of hardware or fixation, instability, fracture, deep vein thrombosis and pulmonary embolism, anesthetic risks, , patient dissatisfaction, need for further surgery and other risks. Patient understood and wished to proceed with surgery, and signed the informed consent documentation. [facility] Medical History (Updated 12/16/23 @ 12:14 by Ramila Seay) Anxiety History of steroid therapy Back pain Shortness of breath on exertion History of edema SLAP lesion of right shoulder Impingement of right shoulder Arthrosis of right acromioclavicular joint Tendinosis of right rotator cuff Post-menopausal Cancer Alcohol use Rash Arthritis Low iron Restless legs Migraine headache Gastric reflux Asthma Non-smoker Hypotension Cholelithiasis Home Medications ?Medication ?Instructions ?Recorded ?Last Taken ?Type omeprazole 20 mg capsule,delayed 20 mg PO DAILY acid reflux 11/09/13 12/23/23 08:00 History release albuterol sulfate 90 mcg/actuation 1 puff inhalation Q4H PRN PRN Sob 07/11/15 Unknown History aerosol inhaler &/Or Wheezing calcium phosphate 250 mg-vitamin 2 ea PO DAILY supplement 03/25/19 10/12/20 History D3 10 mcg (400 unit) chewable 0300 tablet ascorbic acid (vitamin C) 500 mg 500 mg PO DAILY 06/23/22 Unknown History tablet,extended release (Vitamin C ER) meloxicam 7.5 mg tablet 7.5 mg PO BID PRN pain 2 weeks #30 11/30/23 Unknown Rx tabs cholecalciferol (vitamin D3) 25 25 mcg PO DAILY 12/16/23 Unknown History mcg (1,000 unit) tablet (Vitamin D3) Allergy/AdvReac Type Severity Reaction Status Date / Time latex Allergy Rash Verified 12/23/23 09:49 adhesive tape AdvReac BLISTERS Verified 12/23/23 09:49 codeine AdvReac Vomiting Verified 12/23/23 09:49 iodine AdvReac Rash Verified 12/23/23 09:49 iron AdvReac FEVER,VOMIT Verified 12/23/23 09:49 ING Penicillins AdvReac Vomiting Verified 12/23/23 09:49 Surgical History (Updated 12/16/23 @ 12:14 by Ramila Seay) Hx of fasciotomy Hx of colonoscopy Hx of prior ablation treatment History of carpal tunnel surgery of right wrist History of reversal of ileostomy History of partial colectomy History of endoscopic retrograde cholangiopancreatography (~10/2020) S/P hernia repair Hx of cholecystectomy h/o right knee scope Social History Smoking Status: Never smoker
[2023-12-23] MEDS: Epinephrine (1 mg/ml) 1 MG/ML VIAL (10:06)
[2023-12-23] MEDS: Lactated Ringers 1,000 ML 15 ML IV (10:06)
[2023-12-23] MEDS: Cefazolin 2 GM in 0.9% Normal Saline (100mL Bag) 100 ML IV (11:00)
--- NOTE | 2023-12-23 11:20 | TESH_PTH ---
PATIENT: CACHORRO IRENE LOC: [facility] [place] U#:[id number] AGE/SX: 58/F ROOM: RE12/23/[address]: Dr. Juan C Castano MD : 1965 BED: DIS: 12/23/2023 SPEC #: [id number] RECD: 12/23/23 16:20 STATUS: CLAUDIO ANALIA #: [id number] ABDELRAHMAN: 12/23/23 11:[address]: Juan C Castano DEPT: SURGICAL PATHOLOGY RECD BY: Lizy Cunningham ENTERED: 12/24/23 08:41 SP TYPE: TENDON OTHR DR: Dr. Quentin Madsen MD Tissues: Tendon and tendon sheath, NOS Procedures: Surgery Specimen Level III HEADER OPERATION: Right shoulder arthroplasty, subacromial decompression PRE-OP DIAGNOSIS: Right shoulder arthroplasty subacromial decompression TISSUE SUBMITTED: Sofia MICROSCOPIC DIAGNOSIS Biceps tendon, right shoulder arthroplasty: A piece of dense fibroconnective tissue with reactive changes. SJ/mr 12/25/2023 MICROSCOPIC DESCRIPTION Slides are reviewed. GROSS DESCRIPTION Received in fixative is one container labeled with the patient's name and designated Biceps. The specimen consists of a piece of kee indurated tissue measuring 2.5 x 0.8 x 0.3cm. The entire specimen is submitted in one cassette. / 12/24/2023 TC:5 CPT:31764
--- NOTE | 2023-12-23 13:49 | OP.PCM_ITS ---
Problems Associated Problem List Diagnoses (1) Impingement of right shoulder: (2) Arthrosis of right acromioclavicular joint: (3) SLAP lesion of right shoulder: (4) Right rotator cuff tear: Report of Operation Date of Procedure: 12/23/23 Pre-Operative Diagnosis: Right shoulder impingement syndrome and SLAP tear Post-Operative Diagnosis: Right shoulder impingement syndrome SLAP tear and full-thickness supraspinatus tear Surgery/Procedure Performed:: Right shoulder arthroscopy subacromial decompression rotator cuff repair separate incision biceps tenodesis Surgeon: Juan C Castano Type of Anesthesia: Block,Therapeutic and General Anesthesiologist: Frederick Acosta Estimated Blood Loss (mL): 100 Description of Procedure: Patient brought to the operating room theater. Placed supine on the table. General anesthesia induced. 3 g IV Ancef administered prior to the start of the case. Patient transferred right side up lateral decubitus beanbag positioner axillary roll placed all bony prominences padded. SCDs on the legs. Upper extremity prepped and draped in the usual sterile fashion allowing over 3 minutes drying time prior to draping. Upper extremity in 10 pounds of traction 35 degrees of abduction. Preoperative timeout performed confirm the site the patient and the surgery. Began by inserting the arthroscope into the intra-articular portion of the shoulder. Did a full diagnostic arthroscopy. There is minor chondrosis grade 1 2 changes on the glenoid grade 1 changes on the humeral head. There is circumferential fraying as well as superior tearing of the labrum. I debrided the entire labrum as well as the biceps was hypertrophic and had tearing at the origin. I established inside out spinal needle localization of the anterior portal through the rotator interval. I performed an intra-articular biceps tenotomy with the ablator instrument. The undersurface of the rotator cuff had some high-grade fraying there. Subscapularis fraying but normal insertion. No loose bodies. I then turned my attention to the subacromial space. I started debriding the bursa from the lateral portal. I did a subacromial decompression as there was a type II acromion to flat margins with a high-speed elmo instrument for about 4 mm. In the mid aspect of the supraspinatus tendon there was once I remove the bursa there is actually full-thickness tear from anterior to posterior 3 cm and from medial to lateral 3 cm to the mid humeral head with delamination of the leaflets posteriorly this was an L-shaped tear. Debrided the edge of the tear. I debrided the footprint and there was actually almost no rotator cuff attachment to the footprint. The patient had mentioned a recent 'snap' sensation with pain laterally about the shoulder right before surgery. Given the size of the tear I elected to do [id number] repair first to gain better coverage of the tuberosity with a Arthrex fiber stitch. I used an SMC sliding knot and try to put the knot more anteriorly cut the sutures short to do a [id number] closure. Then I plan for double row repair as this was quite a la rge tear with delamination of the tissue and more of an L-shaped configuration. I placed 2 knotless RC Arthrex anchors at the medial footprint medialize the repair by about 2 mm. I then passed the fiber tape sutures about 1.5 cm medial to the tear and then passed the sutures for the knotless medial row repair just inside to those sutures. I then used the repair stitch to pass through the knotless mechanism from anterior and posterior along the medial row secured this down to reestablish the medial aspect of the tendon footprint. I cut the suture short. I then cut at the swedge and cross the fiber tape sutures. I crisscrossed these to perform an X type repair and put 2 sutures from each into a Arthrex bio composite 4.75 mm anchor at the lateral aspect of the footprint. Repair was solid. The space was quite small after the tendon repair. I then turned my attention to the open portion of the operation. I made a longitudinal about 1.5 inches incision at the proximal anteromedial aspect of the upper humerus. This was over the long head of the biceps tendon. I carried the dissection down through skin and subcutaneous tissue achieved meticulous hemostasis. I incised the fascia in line with the skin incision. Identified the long head of the biceps deliver this through the incision. Shorten the tendon up slightly. I used the Arthrex knotless button construct the tension tight button. I used the included braided nonabsorbable suture with a luggage tag type stitch and then passed the free limb just distal to this. I then drilled a unicortical hole in the middle aspect the humerus irrigated that and then passed the button through the tunnel flipped the button and delivered the tendon down to the repair site by pulling on the free end and then cut the suture short. This was a very stable and solid repair. I thoroughly irrigated the incisions closed the subcutaneous tissue with 2-0 Vicryl suture and 3-0 Monocryl. Skin cleaned with wet dry dressing followed ap plication of Steri-Strips Adaptic 4 x 4 gauze ABD dressing cloth tape and an abduction pillow sling for the upper extremity. Patient woken up from the general anesthetic transferred off the operating table and postanesthetic care unit in stable condition. All sponge needle instrument counts were correct no complications. cpt [id number]?+ [id number] + [id number] Complications none Admit VTE Documentation VTE Present on Admission: No VTE Mechan Device Prophylaxis: SCD's VTE Pharm Prophylaxis ordered?: No Reason prophylaxis not ordered:: Treatment Not Indicated Procedures Musculoskeletal 20xxx-29xxx: Other Procedure See Report
--- NOTE | 2023-12-23 14:18 | DCINST_ITS ---
Discharge Instructions Diet Discharge Diet: No restrictions Activity Discharge Activity: May Not Drive Ice area for (Minutes): 10 Lifting Restrictions: no lifting Additional Activity Instructions:: pendulums 4x/day Dressing / Incision Call your doctor if your incision/area has: Continuous Slow Oozing, Sudden Increased Bleeding, Increased Pain/ Swelling, Increased Redness, Foul Smelling Discharge and Swelling at the incision site Change Dressing in: leave in place till F/U Follow Up Care Please Follow Up With: Juan C Castano MD When: 2 days Test Results: Test results from this visit will be discussed in further detail at your follow- up appointment, if applicable. Discharge Plan Admission Attending Provider: Juan C Castano Primary Care Provider: Quentin Madsen Instructions Print Language: [place] Discharge Orders/Prescriptions Prescriptions: New oxycodone-acetaminophen [Endocet] 5-325 mg tablet 1 tab PO Q4H MDD 6 PRN (Reason: pain) 5 Days Qty: 30 0RF No Action meloxicam 7.5 mg tablet 7.5 mg PO BID PRN (Reason: pain) 14 Days Qty: 30 1RF omeprazole 20 MG capsule 20 mg PO DAILY albuterol sulfate 1 INHALER inhaler 1 puff INHALATION Q4H PRN PRN (Reason: Sob &/Or Wheezing) calcium phosphate-vitamin D3 1 EACH tablet,chewable 2 ea PO DAILY ascorbic acid (vitamin C) [Vitamin C] 500 mg Tablet Extended Release 500 mg PO DAILY cholecalciferol (vitamin D3) [Vitamin D3] 25 mcg (1,000 unit) tablet 25 mcg PO DAILY Referrals / Follow Up: Quentin Madsen MD [Primary Care Provider] - Juan C Castano MD [Med Staff - Active Staff] - Disposition Disposition (needs filled in before D/C Order can be placed): Home, Self Care
== END 2023-12-23 15:28 | disposition home or self-care (01) ==
LOC: SDC 09:06 → AC 09:06
PROVIDERS: PCP Family Medicine; Referring Provider Orthopaedic Surgery Sports Medicine; Visit Provider Orthopaedic Surgery Sports Medicine
PROC: (CPT 29805; principal; 2023-12-23 11:00)
DX: M19.011 Primary osteoarthritis, right shoulder (principal); S46.911A Strain of unspecified muscle, fascia and tendon at shoulder and upper arm level, right arm, initial encounter; S43.431A Superior glenoid labrum lesion of right shoulder, initial encounter; Z79.1 Long term (current) use of non-steroidal anti-inflammatories (NSAID); M75.101 Unspecified rotator cuff tear or rupture of right shoulder, not specified as traumatic; M75.80 Other shoulder lesions, unspecified shoulder; M25.419 Effusion, unspecified shoulder; M75.41 Impingement syndrome of right shoulder; M75.120 Complete rotator cuff tear or rupture of unspecified shoulder, not specified as traumatic; M67.813 Other specified disorders of tendon, right shoulder; M25.811 Other specified joint disorders, right shoulder
CPT/HCPCS: 23430; 29827; 29826; 01630; 64415; 88304; 93005; C1713; J7120; J2405

== ENCOUNTER 2024-05-03 10:00 | Outpatient (RCR) | payer OTHER, SELFPAY | END 2024-05-03 19:00 | disposition home or self-care (01) | LOC: PT 10:00 | PROVIDERS: PCP Family Medicine; Referring Provider Orthopaedic Surgery Sports Medicine; Visit Provider Orthopaedic Surgery Sports Medicine | DX: M75.101 Unspecified rotator cuff tear or rupture of right shoulder, not specified as traumatic (principal); S46.911D Strain of unspecified muscle, fascia and tendon at shoulder and upper arm level, right arm, subsequent encounter; S43.431D Superior glenoid labrum lesion of right shoulder, subsequent encounter | CPT/HCPCS: 97110; 97140; 97162; 97530 ==

== ENCOUNTER → 2024-10-28 | Outpatient (CLI) | payer OTHER, SELFPAY ==
[2024-10-28 10:35] LABS: Hematocrit 37.8 % (37-47); Hemoglobin 12.1 g/dL (12.0-15.0); Mean Corpuscular Hgb 26.9 pg (27.0-32.0); Platelet Count 267 K/mm3 (150-450); RBC Distribution Width CV 13.7 % (11.6-14.6); RBC Distribution Width SD 42.4 fl (35.1-43.9)
[2024-10-28 11:29] LABS: Anion Gap 11 (5-15); BUN 11 mg/dL (4-19); BUN/Creat Ratio 11.4 RATIO (10-20); Calcium,Total 9.3 mg/dL (7.6-11.0); Carbon Dioxide 23.6 mmol/L (21.0-32.0); Chloride 105 mmol/L (98-108); Cholesterol 170 mg/dL (<=200); Creatinine, Serum 0.96 mg/dL (0.70-1.20); EST Glomerular Filtration Rate 69 (>60); Glucose 110 mg/dL (70-99); High Density Lipoprotein 67 mg/dL; Low Density Lipoprotein Calc. 87 mg/dL; Potassium 3.8 mmol/L (3.3-5.1); Sodium Level 140 mmol/L (133-145); Triglycerides 80 mg/dL; Troponin T High Sensitivity 11 ng/L (<=14); Very Low Density Lipoprotein 16 mg/dL (5-40); Vitamin D,25 Hydroxy 34.7 ng/mL (30-100); cholesterol:hdl ratio screen 2.53
== END | disposition home or self-care (01) ==
LOC: MFPLAB 08:32
PROVIDERS: PCP Family Medicine; Referring Provider Family Medicine; Visit Provider Family Medicine
DX: R07.89 Other chest pain (principal); Z13.220 Encounter for screening for lipoid disorders; F41.9 Anxiety disorder, unspecified
CPT/HCPCS: 36415; 80048; 80061; 82306; 84443; 84484; 85027

== ENCOUNTER → 2024-12-16 | Outpatient (CLI) | payer OTHER, SELFPAY ==
--- NOTE | 2024-12-16 06:52 | ECHOCS_ITS ---
Reason For Study Reason For Study: CHEST PAIN Procedure This was a 2D Doppler, Color Flow transthoracic echocardiogram. The study was technically difficult. Contrast injection was performed. Exam performed in department. Left Ventricle Normal size and thickness. The LV systolic function is normal. EF is 65 %. No evidence for diastolic dysfunction. Right Ventricle Normal right ventricle. Atria The left and right atria are normal. Mitral Valve Trivial mitral valve insufficiency. Tricuspid Valve Trivial tricuspid valve insufficiency. Normal pulmonary artery pressure. Aortic Valve Trisinus/trileaflet aortic valve. Pulmonic Valve The pulmonic valve is not well visualized. Great Vessels Normal sized aortic root. Pericardium/Pleural No pericardial effusion. Medication Diluted definity 2ml given slow IV push to enhance endocardial definition. MMode/2D Measurements & Calculations LVIDd: 4.4 cm IVSd: 0.92 cm LVOT diam: 2.0 cm LVIDs: 3.5 cm LVPWd: 0.94 cm RVDd: 3.2 cm FS: 21.1 % LVOT area: 3.1 cm2 Ao root diam: 3.1 cm LAV(MOD-bp): 52.8 ml LVAd ap4: 30.6 cm2 LAV(MOD-bp) Indexed: 27.6 ml/m2 LVLd ap4: 7.4 cm LAV(MOD-sp2): 40.5 ml EDV(MOD-sp4): 102.5 ml LAV(MOD-sp4): 53.0 ml EDV(sp4-el): 107.2 ml LVAs ap4: 15.9 cm2 LVLs ap4: 6.1 cm ESV(MOD-sp4): 35.1 ml ESV(sp4-el): 35.1 ml EF(MOD-sp4): 65.8 % EF(sp4-el): 67.2 % SV(MOD-sp4): 67.4 ml SV(sp4-el): 72.1 ml LA A4 area: 19.9 cm2 SI(MOD-sp4): 35.2 ml/m2 LA dimension(2D): 3.5 cm RA A4 area: 14.7 cm2 Time Measurements MV dec time: 0.21 sec Doppler Measurements & Calculations MV E max hasmukh: 78.0 cm/sec Lat Peak E' Hasmukh: 15.4 cm/sec Med Peak E' Hasmukh: 9.9 cm/sec MV A max hasmukh: 88.4 cm/sec E/E' lat: 5.1 E/E' med: 7.9 MV E/A: 0.88 MV V2 max: 87.7 cm/sec MV dec slope: 365.4 cm/sec2 Ao V2 max: 134.9 cm/sec MV max P.1 mmHg Ao max P.3 mmHg MV V2 mean: 59.3 cm/sec Ao V2 mean: 89.3 cm/sec MV mean P.5 mmHg Ao mean P.7 mmHg MV V2 VTI: 30.4 cm Ao V2 VTI: 29.2 cm MVA(VTI): 2.6 cm2 AV (velocity ratio): 0.88 CATE(I,D): 2.7 cm2 CATE(V,D): 2.7 cm2 LV V1 max: 118.8 cm/sec SV(LVOT): 79.6 ml PA V2 max: 87.5 cm/sec LV V1 max P.6 mmHg PA V2 mean: 61.5 cm/sec LV V1 mean P.0 mmHg LV V1 mean: 81.4 cm/sec LV V1 VTI: 25.6 cm TR max hasmukh: 207.5 cm/sec TR max P.2 mmHg ECHO/Echo Complete W/ Contrast Interpretation Summary The LV systolic function is normal. EF is 65 %. Ordering Physician: Quentin aMdsen Referring Physician: Quentin Madsen Performed By: Jessica Huddleston RCS
--- NOTE | 2024-12-16 09:26 | STRESSREP ---
Stress Test Report Exercise myocardial perfusion stress test. 59-year-old lady with a history of chest pain Stress protocol: Resting EKG demonstrates sinus bradycardia with a rate of 56 bpm resting blood pressure is 132/68 mmHg. The patient exercised according to the regular Rom protocol for a total duration of 6 minutes attaining a maximum heart rate of 151 bpm which was 92% beats of maximum predicted heart rate; the maximum workload was 7 metabolic equivalents. At rest there were no ST or T wave changes noted to suggest ischemia and at peak exercise upsloping ST changes only were noted which did not meet the criteria for ischemia. No clinical angina was noted the test was terminated due to the target heart rate being achieved/fatigue. The peak blood pressure was 172/74 mmHg. Rate-pressure product was 25,400. Myocardial perfusion protocol. 13.8 mCi of technetium 99m sestamibi was injected at rest. The patient exercised according to regular Rom protocol for total duration of 6-minute and at peak exercise 44.8 mCi of technetium 99m sestamibi was injected stress images were obtained stress and rest images were reconstructed in comparing the short axis vertical long and horizontal long axis. Gated images were also obtained. Perfusion SPECT analysis: Review of the stress images demonstrate normal uptake of tracer noted in all areas of the myocardium. The resting images similarly demonstrate normal uptake of tracer noted in all areas of the myocardium. No areas of reversibility are noted to suggest ischemia no previous infarct was noted. Gated SPECT analysis: The gated ejection fraction is 77%. Conclusion: Normal exercise myocardial perfusion stress test at a moderate workload Preserved ejection fraction.
== END | disposition home or self-care (01) ==
PROVIDERS: PCP Family Medicine; Referring Provider Family Medicine; Visit Provider Family Medicine
DX: R07.89 Other chest pain (principal)
CPT/HCPCS: 78452; 93017; 93306; A9500; Q9957; A4216; C8929

== ENCOUNTER → 2025-07-21 | Outpatient (CLI) | payer OTHER, SELFPAY ==
--- NOTE | 2025-07-21 08:30 | LES_PTH ---
PATIENT: CACHORRO IRENE LOC: [facility] U#:[id number] AGE/SX: 60/F ROOM: RE07/21/[address]: Dr. Quentin Madsen MD : 1965 BED: DIS: 07/21/2025 SPEC #: [id number] RECD: 07/21/25 10:14 STATUS: CLAUDIO ANALIA #: [id number] ABDELRAHMAN: 07/21/25 08:[address]: Quentin Madsen DEPT: SURGICAL PATHOLOGY RECD BY: Sharona Borja Tissues: Skin of back, NOS Procedures: Surgery Specimen Level IV HEADER OPERATION: Punch biopsy PRE-OP DIAGNOSIS: Back rash TISSUE SUBMITTED: A- Back rash MICROSCOPIC DIAGNOSIS A. Skin, back, punch biopsy: - Cutaneous ulcer with impetiginized crust, consistent with excoriation or other trauma. - PASD stain is negative for fungal organisms. COMMENT Selected slides/images were reviewed in intradepartmental consultation by Dr Karen Tinoco (dermatopathology division, [facility]) MICROSCOPIC DESCRIPTION Slides are reviewed. All matched controls reacted appropriately. These tests were developed and their performance characteristics determined by [facility]. They may not have been cleared or approved by the [place] Food and Drug Administration. The FDA has determined that such clearance or approval is not necessary. The above immunohistochemical markers and/or special?stains have been reviewed by the Pathologist. GROSS DESCRIPTION A. Received in formalin labeled with the patient's name and date of . Designated as back rash is a 0.4 x 0.4 cm kee-white skin punch excised to a maximum depth of 0.5 cm. There is a 0.3 x 0.2 cm kee-yellow to light brown scab on the epidermal surface, abutting the peripheral edge. The resection margin is inked green and the specimen is bisected. Entirely submitted in [address] [facility] 07/21/2025 CPT:42022,54699
--- OUTSIDE RECORDS SUMMARY | 2025-07-21 08:45 | XMS RPT_ITS | CCD ---
Author Organization [facility] CliniSyin Care Team Providers Care Felt Hat Mellowing Machine Operator Name Role Phone Dr. Quentin Madsen Primary Care Provider Dr. Quentin Madsen Referring Provider BELKIS Anders Attending Provider MD Juan C Castano Attending Provider [phone] Winston Forde Attending Provider 1([facility])[phone] MD Juan C Castano Referring Provider [phone] MD Juan C Castano Other Provider 1([facility])[phone] BETSEY Naranjo Attending Provider Cale ANGULO, Dr. Saavedra Primary Care Provider Dr. Quentin Madsen MD Attending Provider Dr. Quentin Mdasen MD Referring Provider Xavier ANGULO, Dr. Carter Attending Provider Dr. Quentin Madsen MD Other Provider 1([facility] )[phone] Maurisio ANGULO, Dr. Montero Attending Provider Quentin Madsen Referring Unavailable Cale, Quentin Primary Care Unavailable Juan C Castano Attending Unavailable Quentin Madsen Referring Unavailable Cale, Christophedgar Primary Care Unavailable Juan C Castano Attending Unavailable Quentin Madsen Referring Unavailable Cale, Christophedgar Primary Care Unavailable Juan C Castano Attending Unavailable Quentin Madsen Referring Unavailable Cale, Christophedgar Primary Care Unavailable Juan C Castano Attending Unavailable Quentin Madsen Referring Unavailable Cale, Christophedgar Primary Care Unavailable Juan C Castano Attending Unavailable Quentin Madsen Referring Unavailable Cale, Christopher Primary Care Unavailable Juan C Castano Attending Unavailable Quentin Madsen [facility] Unavailable Quentin Madsen Referring Unavailable Quentin Madsen Referring [facility] Unavailable Quentin Madsen Attending [facility] Unavailable Juan C Castano Attending Unavailable Juan C Castano Referring Unavailable Raul Park Attending Unavailable [facility] Referring Unavailable Winston Forde Attending Unavailable [facility] Primary Care Unavailable Quentin Madsen Consulting Unavailable Allergies Allergy Classification Reported Allergen(s) Allergy Type Date of Onset Reaction(s) Facility (9 sources) Adhesive Tape; Translations: [adhesive tape] Propensity to adverse reactions 1 BLISTERS [facility] (8 sources) Codeine Drug Allergy 1 Vomiting [facility] (8 sources) Iodine Drug Allergy 1 [facility] Comment on above: DOES OK WITH PRE-MED S (8 sources) Iron Drug Allergy 1 FEVER,VOMITING [facility] (8 sources) Latex Allergy to substance 1 [facility] (9 sources) Penicillins; Translations: [Penicillins] Propensity to adverse reactions 1 Vomiting [facility] (1 source) Codeine Drug Allergy 4 [facility] Repository (1 source) Iodine Drug Allergy 4 [facility] Repository (1 source) Iron Drug Allergy 4 [facility] Repository (1 source) Latex Drug allergy (disorder) 4 [facility] Repository Medications Current Medications Medication Drug Class(es) Dates Sig (Normalized) Sig (Original) Albuterol (8 sources) beta2-Adrenergic Agonist Start: 07-11-2015 Albuterol Sulfate 1 INHALER inhaler Active 1 NMA INHALATION EVERY 4 HOURS NEEDED as needed for Sob &/Or Wheezing July 11, 2015 1:00am Start: 07-11-2015 take 1 puff(s) by in halation every four hours as needed Albuterol Sulfate Active 1 PUFF INHALATION EVERY 4 HOURS NEEDED July 11, 2015 1:00am Start: 07-11-2015 take 1 puff(s) by in halation every four hours as needed Albuterol Sulfate Active 1 PUFF INHALATION EVERY 4 HOURS NEEDED July 11, 2015 12:00am Start: 07-11-2015 take 1 puff(s) by in halation every four hours as needed Albuterol Sulfate Active 1 PUFF INHALATION EVERY 4 HOURS NEEDED July 11, 2015 1:00am ascorbic acid 500 mg extended release oral tablet (6 sources) Vitamin C Start: 06-23-2022 take 1 tablet by mouth once daily Ascorbic Acid (Vitamin C) (Vitamin C) 500 mg Tablet Extended Release Active 500 mg PO DAILY June 23, 2022 1:00am cholecalciferol 0.025 mg oral tablet (11 sources) Vitamin D Start: 12-16-2023 take 1 tablet by mouth once daily Cholecalciferol (Vitamin D3) (Vitamin D3) 25 mcg (1,000 unit) tablet Active 25 ug PO DAILY December 16, 2023 12:00am Start: 11-03-2023 End: 12-16-2023 take 1 tablet by mouth twice daily Cholecalciferol (Vitamin D3) (Vitamin D3) 25 mcg (1,000 unit) tablet Discontinued 1000 U PO TWICE A DAY November 03, 2023 8:04am December 16, 2023 12:03pm Start: 06-23-2022 End: 11-03-2023 take 1 tablet by mouth once daily Cholecalciferol (Vitamin D3) (Vitamin D3) 25 mcg (1,000 unit) Tablet Discontinued 50 ug PO DAILY June 23, 2022 1:00am November 03, 2023 8:05am cholecalciferol 0.01 mg / tricalcium phosphate 658 mg chewable tablet (8 sources) Vitamin D Start: 03-25-2019 Calcium Phosph ate-Vitamin D3 1 EACH tablet,chewable Active 2 NMA PO DAILY March 25, 2019 12:00am Start: 03-25-2019 Calcium Phosph ate-Vitamin D3 Active 2 EACH PO DAILY March 25, 2019 12:00am cholestyramine resin 4000 mg powder for oral suspension (2 sources) Bile Acid Sequestrant Start: 11-12-2020 take 1 dose by mouth three times daily Cholestyramine (With Sugar) Active 4 GM PO THREE TIMES A DAY 378 November 12, 2020 12:00am administer w/meal; avoid other meds within 1hr before or 4-6hr after dose omeprazole 20 mg delayed release oral capsule (8 sources) Proton Pump Inhibitor Start: 11-09-2013 take 1 capsule by mouth once daily Omeprazole 20 MG capsule Active 20 mg PO DAILY November 09, 2013 12:00am potassium gluconate 2.5 meq oral tablet (2 sources) Start: 03-25-2019 take 99 mg by mouth once daily Potassium Active 99 MG PO DAILY March 25, 2019 12:00am Completed/Discontinued Medications Medication Drug Class(es) Dates Sig (Normalized) Sig (Original) acetaminophen 325 mg oral tablet (8 sources) Start: 10-14-2020 End: 12-16-2023 take 1-10 tablets by mouth every four hours as needed for pain Acetaminophen 325 MG tablet Discontinued 650 mg PO EVERY 4 HOURS NEEDED as needed for Pain 1-10 Or Fever October 14, 2020 1:00am December 16, 2023 12:02pm Start: 10-14-2020 take 650 mg by mouth every four hours as needed Acetaminophen Active 650 MG PO EVERY 4 HOURS NEEDED October 14, 2020 1:00am acetaminophen 325 mg / HYDROcodone bitartrate 5 mg oral tablet (8 sources) Opioid Agonist Start: 03-29-2019 End: 04-04-2019 Hydrocodone-Acetaminophen 1 TABLET tablet Discontinued 1 - 2 {tbl} PO EVERY 4 HOURS NEEDED as needed for Pain 50 5 March 29, 2019 April 02, 2019 12:00am April 04, 2019 12:07am Start: 03-29-2019 End: 04-04-2019 take 1 tablet by mouth every four hours as needed Hydrocodone-Acetaminophen Discontinued 1 - 2 TABLET PO EVERY 4 HOURS NEEDED 50 5 March 29, 2019 April 04, 2019 12:07am acetaminophen 325 mg / oxyCODONE hydrochloride 5 mg oral tablet (8 sources) Opioid Agonist Start: 12-23-2023 End: 01-05-2024 Oxycodone-Acetaminophen (Endocet) 5-325 mg tablet Discontinued 1 {tbl} PO Q4H as needed for pain 30 5 December 23, 2023 January 05, 2024 1:02pm Start: 06-27-2022 End: 10-30-2023 Oxycodone-Acetaminophen (Per cocet) 5-325 mg tablet Discontinued 1 - 2 {tbl} PO EVERY 6 HOURS as needed for pain 24 5 June 27, 2022 October 30, 2023 4:12pm etodolac 300 mg oral capsule (8 sources) Nonsteroidal Anti-inflammatory Drug Start: 03-25-2019 End: 07-01-2019 take 1 capsule by mouth once daily Etodolac 300 MG capsule Discontinued 300 mg PO DAILY March 25, 2019 12:00am July 01, 2019 9:58am meloxicam 7.5 mg oral tablet (2 sources) Nonsteroidal Anti-inflammatory Drug Start: 11-30-2023 End: 05-24-2024 take 1 tablet by mouth twice daily as needed for pain Meloxicam 7.5 mg tablet Discontinued 7.5 mg PO TWICE A DAY as needed for pain 30 November 30, 2023 12:00am May 24, 2024 1:58pm ondansetron 4 mg disintegrating oral tablet (8 sources) Serotonin-3 Receptor Antagonist Start: 06-17-2018 End: 03-18-2019 take 1 tablet by mouth every eight hours as needed for nausea Ondansetron 4 MG tablet Discontinued 4 mg PO EVERY 8 HOURS NEEDED as needed for Nausea June 17, 2018 1:00am March 18, 2019 8:15am oxyCODONE hydrochloride 5 mg oral tablet (8 sources) Opioid Agonist Start: 10-14-2020 End: 10-17-2020 take 1 tablet by mouth every four hours as needed for pain Oxycodone 5 MG tablet Discontinued 5 mg PO EVERY 4 HOURS NEEDED as needed for Pain Score 4-10 15 3 October 14, 2020 October 16, 2020 1:00am October 17, 2020 1:03am predniSONE 10 mg oral tablet (3 sources) Start: 10-30-2023 End: 11-03-2023 Prednisone 10 mg tablet Discontinued 10 mg PO daily 30 October 30, 2023 12:00am November 10, 2023 12:00am November 03, 2023 8:05am Take 4 tabs once daily days 1-3 3 tabs once daily days 4-6 2 tabs once daily days 7-9 and 1 tab once daily days 10-12. Problems Active Problems Problem Classification Problem Date Documented Date Episodic/Chronic Asthma (5 sources) Exacerbation of asthma; Translations: [Unspecified asthma with (acute) exacerbation] 08-30-2022 Chronic Biliary tract disease (8 sources) Obstructive hyperbilirubinemia; Translations: [Obstruction of bile duct] 10-14-2020 Chronic Biliary tract disease (20 sources) Cholecystitis; Translations: [Cholecystitis, unspecified] 10-14-2020 Episodic Nervous system congenital anomalies (6 sources) Neurofibromatosis syndrome; Translations: [Neurofibromatosis, unspecified] 05-11-2022 Chronic Nonspecific chest pain (2 sources) Other chest pain; Translations: [Other chest pain] Onset: 12-26-2024 Episodic Osteoarthritis (4 sources) Arthropathy; Translations: [Primary osteoarthritis, right shoulder] 11-19-2023 Chronic Other connective tissue disease (6 sources) Plantar fascial fibromatosis; Translations: [Plantar fascial fibromatosis] 06-27-2022 Episodic Other connective tissue disease (6 sources) Foot pain; Translations: [Pain in left foot] 05-11-2022 Episodic Other connective tissue disease (3 sources) Tendinosis of right shoulder; Translations: [Other specified disorders of tendon, right shoulder] 11-19-2023 Episodic Other connective tissue disease (1 source) Other specified disorders of tendon, right shoulder; Translations: [Disorders of bursae and tendons in shoulder region, unspecified] 11-19-2023 Episodic Other connective tissue disease (2 sources) Tear of right rotator cuff; Translations: [Unspecified rotator cuff tear or rupture of right shoulder, not specified as traumatic] 12-23-2023 Episodic Other nervous system disorders (6 sources) Difficulty walking; Translations: [Difficulty in walking, not elsewhere classified] 05-11-2022 Chronic Other non-traumatic joint disorders (3 sources) Disorder of shoulder; Translations: [Other specified joint disorders, right shoulder] 11-19-2023 Episodic Other non-traumatic joint disorders (1 source) Other specified joint disorders, right shoulder; Translations: [Other specified disorders of joint, shoulder region] 11-19-2023 Episodic Past or Other Problems Problem Classification Problem Date Documented Da te Episodic/Chronic Other connective tissue disease (1 source) Unspecified rotator cuff tear or rupture of right shoulder, not specified as traumatic; Translations: [Unspecified rotator cuff tear or rupture of right shoulder, not specified as traumatic] Onset: 05-10-2024 Episodic Sprains and strains (17 sources) Injury of superior glenoid labrum of shoulder joint; Translations: [Superior glenoid labrum lesion of right shoulder, initial encounter] Onset: 2024 11-19-2023 Episodic Unclassified (7 sources) h/o right knee scope 03-10-2022 Results Test Name Value Interpretation Reference Range Facility Cardiovascular stress test r eportOrdered By: Winston Forde on 12-16-2024 Study report [facility] [address] [place] [address] MR#: [id number] Acct: [id number] Name: CACHORRO IRENE Rep #: [id number] : 1965 59 From: Winston Forde MD Primary Care: Dr. Quentin Madsen MD Status: REG CLI Referring Dr: Quentin Madsen MD Sex: F C Stress Test Report Exercise myocardial perfusion stress test. 59-year-old lady with a history of chest pain Stress protocol: Resting EKG demonstrates sinus bradycardia with a rate of 56 bpm resting blood pressure is 132/68 mmHg. The patient exercised according to the regular Rom protocol for a total duration of 6 minutes attaining a maximum heart rate of 151bpm which was 92% beats of maximum predicted heart rate; the maximum workload was 7 metabolic equivalents. At rest there were no ST or T wave changes noted to suggest ischemia and at peak exercise upsloping ST changes only were noted which did not meet the criteria for ischemia. No clinical angina was noted the test was terminated due to the target heart rate being achieved/fatigue. The peak blood pressure was 172/74 mmHg. Rate-pressure product was 25,400. Myocardial perfusion protocol. 13.8 mCi of technetium 99m sestamibi was injected at rest. The patient exercised according to regular Rom protocol for total duration of 6-minute and atpeak exercise 44.8 mCi of technetium 99m sestamibi was injected stress images were obtained stress and rest images were reconstructed in comparing the short axis vertical long and horizontal long axis. Gated images were also obtained. Perfusion SPECT analysis: Review of the stress images demonstrate normal uptake of tracer noted in all areas of the myocardium. The resting images similarly demonstrate normal uptakeof tracer noted in all areas of the myocardium. No areas of reversibility are noted to suggest ischemia no previous infarct was noted. Gated SPECT analysis: The gated ejection fraction is 77%. Conclusion: Normal exercise myocardial perfusion stress test at a moderate workload Preserved ejection fraction. 12/16/24927 Date _ Winston Forde MD CC: Dr. Quentin Madsen MD ~ Date Dictated: 12/16/24925 Date Transcribed: 12/16/24925 Mineral Engineer: CO Signed [facility] Work Phone: Echo Complete W/ Contraston 12-16-2024 Echo Complete W/ Contrast [facility] Cardi[facility] [address] [place] [address] Echo Complete W/ Contrast 12/16/2449 MR#: [id number] Acct: [id number] Name: CACHORRO IRENE Rep #: [id number] : 1965 59 From: Raul Park MD Attending Dr: Dr. Quentin Madsen MD Status: REG CLI Ordering Dr: Quentin Madsen MD Date: 12/16/24 Location: [facility] Sex: F C Admitted: Reason For Study Reason For Study: CHEST PAIN Procedure This was a 2D Doppler, Color Flow transthoracic echocardiogram. The study was technically difficult. Contrast injection was performed. Exam performed in department. Left Ventricle Normal size and thickness. The LV systolic function is normal. EF is 65 %. No evidence for diastolic dysfunction. Right Ventricle Normal right ventricle. Atria The left and right atria are normal. Mitral Valve Trivial mitral valve insufficiency. Tricuspid Valve Trivial tricuspid valve insufficiency. Normal pulmonary artery pressure. Aortic Valve Trisinus/trileaflet aortic valve. Pulmonic Valve The pulmonic valve is not well visualized. Great Vessels Normal sized aortic root. Pericardium/Pleural No pericardial effusion. Medication Diluted definity 2ml given slow IV push to enhance endocardial definition. MMode/2D Measurements Calculations LVIDd: 4.4 cm IVSd: 0.92 cm LVOT diam: 2.0 cm LVIDs: 3.5 cm LVPWd: 0.94 cm RVDd: 3.2 cm FS: 21.1 % LVOT area: 3.1 cm2 Ao root diam: 3.1 cm LAV(MOD-bp): 52.8 ml LVAd ap4: 30.6 cm2 LAV(MOD-bp) Indexed: 27.6 ml/m2 LVLd ap4: 7.4 cm LAV(MOD-sp2): 40.5 ml EDV(MOD-sp4): 102.5 ml LAV(MOD-sp4): 53.0 ml EDV(sp4-el): 107.2 ml LVAs ap4: 15.9 cm2 LVLs ap4: 6.1 cm ESV(MOD-sp4): 35.1 ml ESV(sp4-el): 35.1 ml EF(MOD-sp4): 65.8 % EF(sp4-el): 67.2 % SV(MOD-sp4): 67.4 ml SV(sp4-el): 72.1 ml LA A4 area: 19.9 cm2 SI(MOD-sp4): 35.2 ml/m2 LA dimension(2D): 3.5 cm RA A4 area: 14.7 cm2 Time Measurements MV dec time: 0.21 sec Doppler Measurements Calculations MV E max hasmukh: 78.0 cm/sec Lat Peak E' Hasmukh: 15.4 cm/sec Med Peak E' Hasmukh: 9.9 cm/sec MV A max hasmukh: 88.4 cm/sec E/E' lat: 5.1 E/E' med: 7.9 MV E/A: 0.88 MV V2 max: 87.7 cm/sec MV dec slope: 365.4 cm/sec2 Ao V2 max: 134.9 cm/sec MV max P.1 mmHg Ao max P.3 mmHg MV V2 mean: 59.3 cm/sec Ao V2 mean: 89.3 cm/sec MV mean P.5 mmHg Ao mean P.7 mmHg MV V2 VTI: 30.4 cm Ao V2 VTI: 29.2 cm MVA(VTI): 2.6 cm2 AV (velocity ratio): 0.88 CATE(I,D): 2.7 cm2 CATE(V,D): 2.7 cm2 LV V1 max: 118.8 cm/sec SV(LVOT): 79.6 ml PA V2 max: 87.5 cm/sec LV V1 max P.6 mmHg PA V2 mean: 61.5 cm/sec LV V1 mean P.0 mmHg LV V1 mean: 81.4 cm/sec LV V1 VTI: 25.6 cm TR max hasmukh: 207.5 cm/sec TR max P.2 mmHg ECHO/Echo Complete W/ Contrast Interpretation Summary The LV systolic function is normal. EF is 65 %. Ordering Physician: Quentin Madsen Referring Physician: Quentin Madsen Performed By: Jessica Huddleston RCS 12/16/24 1127 Date Raul Park MD CC: Dr. Quentin Madsen MD Date Dictated: 12/16/2449 Date Transcribed: 12/16/241126 Mineral Engineer: Signed Normal [facility] Echocardiogram study reportO rdered By: Raul Park on 12-16-2024 Study report [facility] [address] [place] [address] Echo Complete W/ Contrast 12/16/24 0849 MR#: [id number] Acct: [id number] Name: CACHORRO IRENE Rep #:[id number] : 1965 59 From: Raul Park MD Attending Dr: Dr. Quentin Madsen MD Status: REG CLI Ordering Dr: Quentin Madsen MD Nasim e: 12/16/24 Location: [facility] Sex: F C Admitted: Reason For Study Reason For Study: CHEST PAIN Procedure This was a 2D Doppler, Color Flow transthoracic echocardiogram. The study was technically difficult. Contrast injection was performed. Exam performed in department. Left Ventricle Normal size and thickness. The LV systolic function is normal. EF is 65 %. No evidence for diastolic dysfunction. Right Ventricle Normal right ventricle. Atria The left and right atria are normal. Mitral Valve Trivial mitral valve insufficiency. Tricuspid Valve Trivial tricuspid valve insufficiency. Normal pulmonary artery pressure. Aortic Valve Trisinus/trileaflet aortic valve. Pulmonic Valve The pulmonic valve is not well visualized. Great Vessels Normal sized aortic root. Pericardium/Pleural No pericardial effusion. Medication Diluted definity 2ml given slow IV push to enhance endocardial definition. MMode/2D Measurements & Calculations LVIDd: 4.4 cm IVSd: 0.92 cm LVOT diam: 2.0 cm LVIDs: 3.5 cm LVPWd: 0.94 cm RVDd: 3.2 cm FS: 21.1 % LVOT area: 3.1 cm2 __ Ao root diam: 3.1 cm LAV(MOD-bp): 52.8 ml LVAd ap4: 30.6 cm2 LAV(MOD-bp) Indexed: 27.6 ml/m2 LVLd ap4: 7.4 cm LAV(MOD-sp2): 40.5 ml EDV(MOD-sp4): 102.5 ml LAV(MOD-sp4): 53.0 ml EDV(sp4-el): 107.2 ml LVAs ap4: 15.9 cm2 LVLs ap4: 6.1 cm ESV(MOD-sp4): 35.1 ml ESV(sp4-el): 35.1 ml EF(MOD-sp4): 65.8 % EF(sp4-el): 67.2 % __ SV(MOD-sp4): 67.4 ml SV(sp4-el): 72.1 ml LA A4 area: 19.9 cm2 SI(MOD-sp4): 35.2 ml/m2 __ LA dimension(2D): 3.5 cm RA A4 area: 14.7 cm2 Time Measurements MV dec time: 0.21 sec Doppler Measurements & Calculations MV E max hasmukh: 78.0 cm/sec Lat Peak E' Hasmukh: 15.4 cm/sec Med Peak E' Hasmukh: 9.9 cm/sec MV A max hasmukh: 88.4 cm/sec E/E' lat: 5.1 E/E' med: 7.9 MV E/A: 0.88 MV V2 max: 87.7 cm/sec MV dec slope: 365.4 cm/sec2 Ao V2 max: 134.9 cm/sec MV max P.1 mmHg Ao max P.3 mmHg MV V2 mean: 59.3 cm/sec Ao V2 mean: 89.3 cm/sec MV mean P.5 mmHg Ao mean P.7 mmHg MV V2 VTI: 30.4 cm Ao V2 VTI: 29.2 cm MVA(VTI): 2.6 cm2 AV (velocity ratio): 0.88 CATE(I,D): 2.7 cm2 CATE(V,D): 2.7 cm2 __ LV V1 max: 118.8 cm/sec SV(LVOT): 79.6 ml PA V2 max: 87.5 cm/sec LV V1 max P.6 mmHg PA V2 mean: 61.5 cm/sec LV V1 mean P.0 mmHg LV V1 mean: 81.4 cm/sec LV V1 VTI: 25.6 cm __ TR max hasmukh: 207.5 cm/sec TR max P.2 mmHg ECHO/Echo Complete W/ Contrast Interpretation Summary The LV systolic function is normal. EF is 65 %. Ordering Physician: Quentin Madsen Referring Physician: Quentin Madsen Performed By: Jessica Huddleston RCS 12/16/24 1127 Date _ Raul Park MD CC: Dr. Quentin Madsen MD ~ Date Dictated: 12/16/2449 Date Transcribed: 12/16/241126 Mineral Engineer: Signed [facility] Work Phone: Stress Reporton 12-16-2024 Stress Report [facility] Cardi[facility] [place] [address] MR#: [id number] Acct: [id number] Name: CACHORRO IRENE Rep #: [id number] : 1965 59 From: Winston Forde MD Primary Care: Dr. Quentin Madsen MD Status: REG CLI Referring Dr: Quentin Madsen MD Sex: F C Stress Test Report Exercise myocardial perfusion stress test. 59-year-old lady with a history of chest pain Stress protocol: Resting EKG demonstrates sinus bradycardia with a rate of 56 bpm resting blood pressure is 132/68 mmHg. The patient exercised according to the regular Rom protocol for a total duration of 6 minutes attaining a maximum heart rate of 151 bpm which was 92% beats of maximum predicted heart rate; the maximum workload was 7 metabolic equivalents. At rest there were no ST or T wave changes noted to suggest ischemia and at peak exercise upsloping ST changes only were noted which did not meet the criteria for ischemia. No clinical angina was noted the test was terminated due to the target heart rate being achieved/fatigue. The peak blood pressure was 172/74 mmHg. Rate-pressure product was 25,400. Myocardial perfusion protocol. 13.8 mCi of technetium 99m sestamibi was injected at rest. The patient exercised according to regular Rom protocol for total duration of 6-minute and at peak exercise 44.8 mCi of technetium 99m sestamibi was injected stress images were obtained stress and rest images were reconstructed in comparing the short axis vertical long and horizontal long axis. Gated images were also obtained. Perfusion SPECT analysis: Review of the stress images demonstrate normal uptake of tracer noted in all areas of the myocardium. The resting images similarly demonstrate normal uptake of tracer noted in all areas of the myocardium. No areas of reversibility are noted to suggest ischemia no previous infarct was noted. Gated SPECT analysis: The gated ejection fraction is 77%. Conclusion: Normal exercise myocardial perfusion stress test at a moderate workload Preserved ejection fraction. 12/16/24927 Date Winston Forde MD CC: Dr. Quentin Madsen MD Date Dictated: 12/16/24925 Date Transcribed: 12/16/24925 Mineral Engineer: CO Signed Normal [facility] Anion gap in Serum or Plasma Ordered By: Quentin Madsen on 10-28-2024 Anion gap [Moles/Vol] 11 mmol/L 12-22 [facility] BUN/creatinine ratioOrdered By: Quentin Madsen on 10-28-2024 Urea nitrogen/Creatinine [Mass ratio] 11.4 mg/mg 05-29 [facility] Basic Metabolic Profile (BMP )on 10-28-2024 BUN/CRE 11.4 RATIO Normal 05-29 [facility] Comment on above: Order Comment: Order Date: 10/25/24 Order Info: [id number] - BMP Order Date: 10/28/24 Order Info: [id number] - LIPID Order Info: [id number] - TSH Performed By: #### L 100.0500, L500.2500, L501.9520 #### [facility] [address] [place] [address]. [place], [place], [address] Calcium [Mass/Vol] 9.3 mg/dL Normal 7.6-11.0 [facility] Comment on above: Order Comment: Order Date: 10/25/24 Order Info: [id number] - BMP Order Date: 10/28/24 Order Info: [id number] - LIPID Order Info: [id number] - TSH Performed By: #### L 100.0500, L500.2500, L501.9520 #### [facility] [address] [place], [address] Chloride [Moles/Vol] 105 mmol/L Normal 98-108 [facility] Comment on above: Order Comment: Order Date: 10/25/24 Order Info: [id number] - BMP Order Date: 10/28/24 Order Info: - LIPID Order Info: [id number] - TSH Performed By: #### L 100.0500, L500.2500, L501.9520 #### [facility] [address] [place], [address] CO2 [Moles/Vol] 23.6 mmol/L Normal 21.0-32.0 [facility] Comment on above: Order Comment: Order Date: 10/25/24 Order Info: [id number] - BMP Order Date: 10/28/24 Order Info: - LIPID Order Info: 3015-10 - TSH Performed By: #### L 100.0500, L500.2500, L501.9520 #### [facility] [address] [place], [address] Creatinine [Mass/Vol] 0.96 mg/dL Normal 0.70-1.20 [facility] Comment on above: Order Comment: Order Date: 10/25/24 Order Info: [id number] - BMP Order Date: 10/28/24 Order Info: [id number] - LIPID Order Info: [id number] - TSH Performed By: #### L 100.0500, L500.2500, L501.9520 #### [facility] [address] [place], [address] GAP 11 Normal 5-15 [facility] Comment on above: Order Comment: Order Date: 10/25/24 Order Info: [id number] - BMP Order Date: 10/28/24 Order Info: [id number] - LIPID Order Info: 3 - TSH Performed By: #### L 100.0500, L500.2500, L501.9520 #### [facility] [address] [place], [address] GFR/1.73 sq M.predicted among non-blacks MDRD (S/P/Bld) [Vol rate/Area] 69 mL/min/{1.73_m2} Normal >60 [facility] Comment on above: Order Comment: Order Date: 10/25/24 Order Info: [id number] - BMP Order Date: 10/28/24 Order Info: [id number] - LIPID Order Info: [id number] - TSH Result Comment: mL/m in/1.73m2 CKD-EPI Creatinine Equation (2020) Performed By: #### L 100.0500, L500.2500, L501.9520 #### [facility] [address] [place], [address] Glucose [Mass/Vol] 110 mg/dL High 70-99 [facility] Comment on above: Order Comment: Order Date: 10/25/24 Order Info: [id number]- - BMP Order Date: 10/28/24 Order Info: [id number] - LIPID Order Info: [id number] - TSH Performed By: #### L 100.0500, L500.2500, L501.9520 #### [facility] [address] [place], [address] Potassium [Moles/Vol] 3.8 mmol/L Normal 3.3-5.1 [facility] Comment on above: Order Comment: Order Date: 10/25/24 Order Info: [id number] - BMP Order Date: 10/28/24 Order Info: [id number] - LIPID Order Info: [id number] - TSH Performed By: #### L 100.0500, L500.2500, L501.9520 #### [facility] [address] [place], [address] Sodium [Moles/Vol] 140 mmol/L Normal 133-145 [facility] Comment on above: Order Comment: Order Date: 10/25/24 Order Info: [id number] - BMP Order Date: 10/28/24 Order Info: [id number] - LIPID Order Info: [id number] - TSH Performed By: #### L 100.0500, L500.2500, L501.9520 #### [facility] [address] [place], [address] Urea nitrogen [Mass/Vol] 11 mg/dL Normal 4-19 [facility] Comment on above: Order Comment: Order Date: 10/25/24 Order Info: [id number] - BMP Order Date: 10/28/24 Order Info: [id number] - LIPID Order Info: [id number] - TSH Performed By: #### L 100.0500, L500.2500, L501.9520 #### [facility] [address] [place], [address] CBC-Complete Blood Cnt No Di ffon 10-28-2024 Erythrocyte distribution width (RBC) [Ratio] 13.7 % Normal 11.6-14.6 [facility] Comment on above: Order Comment: Order Date: 10/25/24 Order Info: [id number] - CBC Performed By: #### L 100.0500, L500.2500, L501.9520 #### [facility] [address] [place], [address] Hematocrit (Bld) [Volume fraction] 37.8 % Normal 37-47 [facility] Comment on above: Order Comment: Order Date: 10/25/24 Order Info: [id number] - CBC Performed By: #### L 100.0500, L500.2500, L501.9520 #### [facility] [address] [place], [address] Hemoglobin (Bld) [Mass/Vol] 12.1 g/dL Normal 12.0-15.0 [facility] Comment on above: Order Comment: Order Date: 10/25/24 Order Info: [id number] - CBC Performed By: #### L 100.0500, L500.2500, L501.9520 #### [facility] [address] [place], [address] MCH (RBC) [Entitic mass] 26.9 pg Low 27.0-32.0 [facility] Comment on above: Order Comment: Order Date: 10/25/24 Order Info: [id number] - CBC Performed By: #### L 100.0500, L500.2500, L501.9520 #### [facility] [address] [place], [address] MCHC (RBC) [Mass/Vol] 32.0 g/dL Normal 32-36 [facility] Comment on above: Order Comment: Order Date: 10/25/24 Order Info: [id number] - CBC Performed By: #### L 100.0500, L500.2500, L501.9520 #### [facility] [address] [place], [address] MCV (RBC) [Entitic vol] 84.0 fL Normal 81-99 [facility] Comment on above: Order Comment: Order Date: 10/25/24 Order Info: [id number] - CBC Performed By: #### L 100.0500, L500.2500, L501.9520 #### [facility] [address] [place], [address] Platelet mean volume (Bld) [Entitic vol] 11.0 fL Normal 6.2-12.0 [facility] Comment on above: Order Comment: Order Date: 10/25/24 Order Info: [id number] - CBC Performed By: #### L 100.0500, L500.2500, L501.9520 #### [facility] [address] [place], [address] Platelets (Bld) [#/Vol] 267 10*3/uL Normal 150-450 [facility] Comment on above: Order Comment: Order Date: 10/25/24 Order Info: [id number] - CBC Performed By: #### L 100.0500, L500.2500, L501.9520 #### [facility] [address] [place], [address] RBC (Bld) [#/Vol] 4.50 10*6/uL Normal 4.2-5.4 [facility] Comment on above: Order Comment: Order Date: 10/25/24 Order Info: [id number] - CBC Performed By: #### L 100.0500, L500.2500, L501.9520 #### [facility] [address] [place], [address] RDW SD 42.4 fl Normal 35.1-43.9 [facility] Comment on above: Order Comment: Order Date: 10/25/24 Order Info: [id number] - CBC Performed By: #### L 100.0500, L500.2500, L501.9520 #### [facility] [address] [place], [address] WBC (Bld) [#/Vol] 9.0 10*3/uL Normal 4.4-11.0 [facility] Comment on above: Order Comment: Order Date: 10/25/24 Order Info: [id number] - CBC Performed By: #### L 100.0500, L500.2500, L501.9520 #### [facility] [address] [place], [address] Calculated very low density lipoprotein (VLDL) cholesterol measurementOrdered By: Quentin Madsen on 10-28-2024 Calculated very low density lipoprotein (VLDL) cholesterol measurement 16 mg/dL 5-40 [facility] VLDL Cholesterol 16 mg/dL 5-40 [facility] Carbon dioxide, total [Moles /volume] in Central venous bloodOrdered By: Quentin Madsen on 10-28-2024 CO2 [Moles/Vol] 23.6 mmol/L 21.0-32.0 [facility] Chloride assayOrdered By: Saad Madsen on 10-28-2024 Chloride [Moles/Vol] 105 mmol/L 98-108 [facility] Erythrocyte distribution wid th ratioOrdered By: Quentin Madsen on 10-28-2024 Erythrocyte distribution width (RBC) [Ratio] 13.7 % 11.6-14.6 [facility] Erythrocyte distribution wid th standard deviationOrdered By: Quentin Madsen on 10-28-2024 Erythrocyte distribution width (RBC) [Entitic vol] 42.4 fL 35.1-43.9 [facility] Erythrocyte distribution width (RBC) [Ratio] 42.4 fl 35.1-43.9 [facility] GFR/1.73 sq M.predicted carri g non-blacks MDRD (S/P/Bld) [Vol rate/Area]Ordered By: Quentin Madsen on 10-28-2024 Estimated GFR (MDRD) Non-Af Amer 69 >60 [facility] Comment on above: mL/min/1.73m2 CKD-EP I Creatinine Equation (2020) Glomerular filtration rate ( GFR) estimation/1.73 sq m using serum, plasma, or whole bOrdered By: Quentin Madsen on 10-28-2024 GFR/1.73 sq M.predicted among non-blacks MDRD (S/P/Bld) [Vol rate/Area] 69 mL/min/{1.73_m2} >60 [facility] Comment on above: mL/min/1.73m2 CKD-EP I Creatinine Equation (2020) Hematocrit Auto (Bld) [Volum e fraction]Ordered By: Quentin Madsen on 10-28-2024 Hematocrit (Bld) [Volume fraction] 37.8 % 37-47 [facility] Hemoglobin measurementOrdere d By: Quentin Madsen on 10-28-2024 Hemoglobin (Bld) [Mass/Vol] 12.1 g/dL 12.0-15.0 [facility] L501.4021on 10-28-2024 Trop T High Sen 11 ng/L Normal <=14 [facility] Comment on above: Order Comment: Order Date: 10/25/24 Order Info: [id number] - BMP Order Date: 10/28/24 Order Info: [id number] - LIPID Order Info: [id number] - TSH Performed By: #### L 506.1001, L501.4021 #### [facility] [address] [place], [address] L506.1001on 10-28-2024 Vitamin D 25-OH 34.7 ng/mL Normal 30-100 [facility] Comment on above: Order Comment: Order Date: 10/25/24 Order Info: [id number]- - BMP Order Date: 10/28/24 Order Info: [id number] - LIPID Order Info: [id number] - TSH Result Comment: Laura min D Status Deficiency: <20 ng/mL (50nmol/L) Insufficiency: 20-30 ng/mL (50-75 nmol/L) Sufficiency: 30-100 ng/mL (75-250 nmol/L) Toxicity: >100 ng/mL (>250 nmol/L) Performed By: #### L 506.1001, L501.4021 #### [facility] [address] [place], [place], [address] LDL calc ser/plasOrdered By: Quentin Madsen on 10-28-2024 Cholesterol in LDL [Mass/Vol] 87 mg/dL [facility] Comment on above: Mvritkxblj=963-823 m g/dL & Higher Otfc=798 mg/dL or greater LDL Cholesterol, Calculated 87 mg/dL [facility] Comment on above: Acotgdkxto=107-541 m g/dL & Higher Xsoa=062 mg/dL or greater Lipid Profileon 10-28-2024 CHOL:HDL 2.53 Normal [facility] Comment on above: Order Comment: Order Date: 10/25/24 Order Info: [id number]- - BMP Order Date: 10/28/24 Order Info: [id number] - LIPID Order Info: [id number] - TSH Performed By: #### L 500.410 #### [facility] [address] [place], [place], [address] Cholesterol [Mass/Vol] 170 mg/dL Normal <=200 [facility] Comment on above: Order Comment: Order Date: 10/25/24 Order Info: [id number]- - BMP Order Date: 10/28/24 Order Info: [id number] - LIPID Order Info: [id number] - TSH Result Comment: Chol esterol level, Desirable <200 mg/dL Borderline high cholesterol 200-239 mg/dL High cholesterol >=240 mg/dL Recommendations of the NCEP Adult Treatment Panel for the following risk-cutoff thresholds for the [place] population. Performed By: #### L 500.4100 #### [facility] [address] [place], [address] Cholesterol in HDL [Mass/Vol] 67 mg/dL Normal [facility] Comment on above: Order Comment: Order Date: 10/25/24 Order Info: [id number] - BMP Order Date: 10/28/24 Order Info: [id number] - LIPID Order Info: [id number] - TSH Result Comment: Lesly onal Cholesterol Education Program (NCEP) guidelines: <40 mg/dL: Low HDL-cholesterol (major risk factor for CHD) >= 60 mg/dL: High HDL-cholesterol (negative risk factor for CHD) HDL-cholesterol is affected by a number of factors, e.g. smoking, exercise, hormones, sex and age. Performed By: #### L 500.4100 #### [facility] [address] [place], [address] Cholesterol in LDL [Mass/Vol] 87 mg/dL Normal [facility] Comment on above: Order Comment: Order Date: 10/25/24 Order Info: 06 - BMP Order Date: 10/28/24 Order Info: [id number] - LIPID Order Info: [id number] - TSH Result Comment: Bord txnhth=936-540 mg/dL Higher Nvop=638 mg/dL or greater Performed By: #### L 500.4100 #### [facility] [address] [place], [address] Cholesterol in VLDL [Mass/Vol] 16 mg/dL Normal 5-40 [facility] Comment on above: Order Comment: Order Date: 10/25/24 Order Info: [id number]- - BMP Order Date: 10/28/24 Order Info: [id number] - LIPID Order Info: [id number] - TSH Performed By: #### L 500.4100 #### [facility] [address] [place], [place], [address] Triglyceride [Mass/Vol] 80 mg/dL Normal [facility] Comment on above: Order Comment: Order Date: 10/25/24 Order Info: [id number] - BMP Order Date: 10/28/24 Order Info: [id number] - LIPID Order Info: [id number] - TSH Result Comment: The drugs N-Acetylcysteine and Metamizole may falsely depress this assay. Normal range: <150 mg/dL Borderline High: 150-199 mg/dL High: 200-499 mg/dL Very High: >500 mg/dL Performed By: #### L 500.4105 #### [facility] [address] [place], [place], [address] MCV (mean corpuscular volume ) determinationOrdered By: Quentin Madsen on 10-28-2024 MCV (RBC) [Entitic vol] 84.0 fL 81-99 [facility] Mean corpuscular hemoglobin (MCH) determinationOrdered By: Quentin Madsen on 10-28-2024 MCH (RBC) [Entitic mass] 26.9 pg Low 27.0-32.0 [facility] Mean corpuscular hemoglobin concentration (MCHC) determinationOrdered By: Quentin Madsen on 10-28-2024 MCHC (RBC) [Mass/Vol] 32.0 g/dL 32-36 [facility] Mean platelet volume determi nationOrdered By: Quentin Madsen on 10-28-2024 Platelet mean volume (Bld) [Entitic vol] 11.0 fL 6.2-12.0 [facility] No Panel InformationOrdered By: Quentin Madsen on 10-28-2024 Troponin T High Sensitivity 11 ng/L <14 [facility] Platelet countOrdered By: Saad Madsen on 10-28-2024 Platelets (Bld) [#/Vol] 267 10*3/uL 150-450 [facility] Potassium (Unsp spec) [Mass/ Vol]Ordered By: Quentin Madsen on 10-28-2024 Potassium [Moles/Vol] 3.8 mmol/L 3.3-5.1 [facility] Potassium measurement (mass/ volume)Ordered By: Quentin Madsen on 10-28-2024 Potassium (Unsp spec) [Mass/Vol] 3.8 mmol/L 3.3-5.1 [facility] RBC Auto (Bld) [#/Vol]Ordere d By: Quentin Madsen on 10-28-2024 RBC (Bld) [#/Vol] 4.50 10*6/uL 4.2-5.4 [facility] Screening total cholesterol/ high density lipoprotein (HDL) cholesterol ratioOrdered By: Quentin Madsen on 10-28-2024 Cholesterol.total/Chol esterol in HDL [Mass ratio] 2.53 {ratio} [facility] Serum creatinine measurement (mass/volume)Ordered By: Quentin Madsen on 10-28-2024 Creatinine [Mass/Vol] 0.96 mg/dL 0.70-1.20 [facility] Serum glucose measurement (m ass/volume)Ordered By: Quentin Madsen on 10-28-2024 Glucose [Mass/Vol] 110 mg/dL High 70-99 [facility] Serum or plasma calcium mali urement (mass/volume)Ordered By: Quentin Madsen on 10-28-2024 Calcium [Mass/Vol] 9.3 mg/dL 7.6-11.0 [facility] Serum or plasma cholesterol in HDL measurement (mass/volume)Ordered By: Quentin Madsen on 10-28-2024 Cholesterol in HDL [Mass/Vol] 67 mg/dL >40 [facility] Comment on above: National Cholesterol Education Program (NCEP) guidelines:<40 mg/dL: Low HDL-cholesterol (major risk factor for CHD)>= 60 mg/dL: High HDL-cholesterol (negative risk factor for CHD)HDL-cholesterol is affected by a number of factors, e.g. smoking, exercise, hormones, sex and age. Serum or plasma cholesterol measurement (mass/volume)Ordered By: Quentin Madsen on 10-28-2024 Cholesterol [Mass/Vol] 170 mg/dL <201 [facility] Comment on above: Cholesterol level, D esirable <200 mg/dLBorderline high cholesterol 200-239 mg/dLHigh cholesterol >=240 mg/dLRecommendations of the NCEP Adult Treatment Panel for the following risk-cutoff thresholds for the [place] population. Serum or plasma urea nitroge n measurement (mass/volume)Ordered By: Quentin Madsen on 10-28-2024 Urea nitrogen [Mass/Vol] 11 mg/dL 4-19 [facility] Sodium levelOrdered By: Kami Madsen on 10-28-2024 Sodium [Moles/Vol] 140 mmol/L 133-145 [facility] TSH DL <= 0.005 mIU/L QnOrde red By: Quentin Madsen on 10-28-2024 Thyroid Stimulating Hormone (TSH) 3.250 uIU/mL 0.300-4.200 [facility] TSH Qn 3.250 uIU/mL 0.300-4.200 [facility] Thyroid Stim Hormone (TSH)on 10-28-2024 TSH 3.250 uIU/mL Normal 0.300-4.200 [facility] Comment on above: Order Comment: Order Date: 10/25/24 Order Info: [id number] - BMP Order Date: 10/28/24 Order Info: [id number] - LIPID Order Info: [id number] - TSH Performed By: #### L 100.0500, L500.2500, L501.9520 #### [facility] [address] [place], [address] Triglycerides measurementOrd ered By: Quentin Madsen on 10-28-2024 Triglyceride [Mass/Vol] 80 mg/dL <199 [facility] Comment on above: The drugs N-Acetylcy steine and Metamizole may falsely depress this assay. Normal range: <150 mg/dLBorderline High: 150-199 mg/dLHigh: 200-499 mg/dLVery High: >500 mg/dL Vitamin D, 25-hydroxyOrdered By: Quentin Madsen on 10-28-2024 Vitamin D 25-Hydroxy 34.7 ng/mL 30-100 [facility] Comment on above: Vitamin D StatusDefi ciency: <20 ng/mL (50nmol/L)Insufficiency: 20-30 ng/mL (50-75 nmol/L)Sufficiency: 30-100 ng/mL (75-250 nmol/L)Toxicity: >100 ng/mL (>250 nmol/L) White blood cell (WBC) count Ordered By: Quentin Madsen on 10-28-2024 WBC (Bld) [#/Vol] 9.0 10*3/uL 4.4-11.0 [facility] PT D/C Summary (1)on 024 PT D/C Summary (1) [facility] [address] [place] [address] / REHABILITATION SERVICES DISCHARGE SUMMARY MR#: [id number] Acct: [id number] Name: CACHORRO IRENE Rep #: [id number] : 1965 59 From: Osbaldo Mi PT, Cert. T, OCS Referring Dr.: Dr. Juan C Castano MD Status: R EG RCR Insurance: [facility] [employer]URANCE Discharge Summary D/C summary: It has been my pleasure to treat CACHORRO IRENE referred by Dr. Juan C Castano MD, with the diagnosis of UNSPECIFIED ROTATOR CUFF TEAR OR RUPTURE SHOULDER SLAP LESION for a total of 23 visit(s). Discharge Date: Please see the following information for a summary of their discharge status. Subjective Subjective: Doing better but front of bicep is sore affects moving arm forward ,feels click in front RTD 10/[address] says Pain Right: Pain Intensity (Out of 10): 5 Overall Improvement % Improvement: 45 Objective Objective/Function: Doing much better with PROM shoulder flexion/abd 150m ,ER 80 degrees ,integrity looks better , ACTIVE motion abd 85 degrees with substitution but bicep long head tender and appears to affect forward elevation Goals Goal 1:: Patient to be I with HEP for RTC and shoulder tenodesis Goal 2:: Patient to demonstrate 70% improvement with less pain and improve function with ADLS Goal 3:: Patient marguerite improve right shoulder AROM shoulder flexion /abduction 150 degrees and ER 90 degrees ,IR l5 marguerite improve function and ADLS Goal 4:: Patient to improve peak force RTC /deltoid by 10-15 # strength to improve function and ADLS Goal 5:: Patient to improve quick dash by 10 points to improve QOL and function. Plan Plan: RTD ,MRI D/C Information d/c sentence: If there are questions or concerns regarding this patient's physical therapy, please feel free to call me at [phone]. Thank you for the referral of this patient. Sincerely, Osbaldo Mi, PT, Cert MDT, OCS Balance/Gait/Functional tests Balance/Special Test Scores Quick DASH Score: 85.0000 Improvement % Improvement: 45 07/13/24 1455 CC: Dr. Quentin Madsen MD; Dr. Juan C Castano MD JLA Signed Normal [facility] Orthopedic Visit Reporton Orthopedic Visit Report [facility] [address] [place] [address] [address] [place] [address] OFFICE VISIT Date of Service: 05/24/24 MR#: [id number] Acct: [id number] Name: CACHORRO IRENE Rep #: [id number] : 1965 Provider: Dr. Juan C coles MD Age/Sex: 59/F Location: [facility] Status: Signed Intake Vital Signs 02/18/24 13:30 Height 5 ft 4 in Intake Visit Reasons: RIGHT SHOULDER Accompanied by: Self Is patient in pain?: No Allergies latex Allergy (Verified 05/24/24 13:58) Rash adhesive tape Adverse Reaction (Verified 05/24/24 13:58) BLISTERS codeine Adverse Reaction (Verified 05/24/24 13:58) Vomiting iodine Adverse Reaction (Verified 05/24/24 13:58) Rash iron Adverse Reaction (Verified 05/24/24 13:58) FEVER,VOMITING Penicillins Adverse Reaction (Verified 05/24/24 13:58) Vomiting Medications ???Medication ???Instructions ???Recorded ???Confirmed ???Type omeprazole 20 mg capsule,delayed 20 mg PO DAILY acid reflux 11/09/13 05/24/24 History release albuterol sulfate 90 mcg/actuation 1 puff inhalation Q4H PRN PRN Sob 07/11/15 05/24/24 History aerosol inhaler /Or Wheezing calcium 250 mg (as phosphate)-vit 2 ea PO DAILY supplement 03/25/19 05/24/24 History D3 10 mcg (400 unit) chewable tablet ascorbic acid (vitamin C) 500 mg 500 mg PO DAILY 06/23/22 05/24/24 History tablet,extended release (Vitamin C ER) cholecalciferol (vitamin D3) 25 25 mcg PO DAILY 12/16/23 05/24/24 History mcg (1,000 unit) tablet (Vitamin D3) PFSH Medical History Right rotator cuff tear Anxiety History of steroid therapy Back pain Shortness of breath on exertion History of edema SLAP lesion of right shoulder Impingement of right shoulder Arthrosis of right acromioclavicular joint Tendinosis of right rotator cuff Post-menopausal Cancer Alcohol use Rash Arthritis Low iron Restless legs Migraine headache Gastric reflux Asthma Non-smoker Hypotension Cholelithiasis Surgical History Hx of fasciotomy Hx of colonoscopy Hx of prior ablation treatment History of carpal tunnel surgery of right wrist History of reversal of ileostomy History of partial colectomy History of endoscopic retrograde cholangiopancreatography ( 10/2020) S/P hernia repair Hx of cholecystectomy h/o right knee scope Social History Smoking Status: Never smoker HPI RIGHT SHOULDER Details: This documentation accurately reflects the service provided and the decisions made by me, Dr. Juan C Castano MD 05/24/24 3700. Part of today???s visit was documented by [ ], acting as scribe. CACHORRO IRENE is a 59 year old F here today for 6 months follow-up right shoulder arthroscopy subacromial decompression biceps tenodesis and rotator cuff repair, with post op stiffness. Patient is doing well still has weakness of the shoulder but did some 3 sessions of acupuncture that seemed to help quite a bit with range of motion. 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 Still has some clicking and crepitus of the shoulder but no pain and is feeling a lot better at this point. Feeling like the shoulder is fixed. Ortho Exam General General: Yes no acute distress Neurologic: Yes alert and Yes oriented x3 Psychologic: Yes reasonable and appropriate Right Shoulder Skin/Wound: Yes CDI, Yes healed, No ecchymosis, No erythema and No swelling Testing: Negative Hawkin's, Neer's or Speed's SHOULDER: normal motor and sens to ax nerve, and MRU and AIN/PIN active FE 170. ER 30. IR to posterior belt line. strength fe 4-, ER 5 Coding Level of Care Code Off vis,est,level 3 Diagnoses Right rotator cuff tear M75.101 Strain of right shoulder, initial encounter S46.911A Encounter type: initial encounter Assessment and Plan Assessment and Plan (1) Right rotator cuff tear: Status: Acute Plan: 59 year old F here today for 6 months follow-up right shoulder arthroscopy subacromial decompression biceps tenodesis and rotator cuff repair, with post op stiffness. The patient is doing a lot better today in terms of range of motion. Still quite weak but patient happy with the outcome at this point wants to return back to work. I wrote a note for no restrictions. They still have some weakness but at this point they are not interested in pursuing the MRI to know for sure about the tendon healing and so we will cancel that and the patient is satisfied to follow-up as needed. (2) Right shoulder strain: Status: Acute Qualifiers: Encounter type: initial encounter Qualified Code(s): S46.911A - Strain of unspecified muscle, fascia and tendon at shoulder and upper arm level, rig (more content not included)... Normal [facility] Orthopedic Visit Reporton Orthopedic Visit Report [facility] [address] [place] [address] OFFICE VISIT Date of Service: 05/10/24 MR#: [id number] Acct: [id number] Name: CACHORRO IRENE Rep #: [id number] : 1965 Provider: Dr. Juan C coles MD Age/Sex: 59/F Location: [facility] Status: Signed Intake Vital Signs 02/18/24 13:30 Height 5 ft 4 in Intake Visit Reasons: RIGHT SHOULDER Chief Complaint: Right Shoulder Concerns Accompanied by: Self Is patient in pain?: Yes Pain scale (1-10): 3 Allergies latex Allergy (Verified 05/10/24 09:57) Rash adhesive tape Adverse Reaction (Verified 05/10/24 09:57) BLISTERS codeine Adverse Reaction (Verified 05/10/24 09:57) Vomiting iodine Adverse Reaction (Verified 05/10/24 09:57) Rash iron Adverse Reaction (Verified 05/10/24 09:57) FEVER,VOMITING Penicillins Adverse Reaction (Verified 05/10/24 09:57) Vomiting Medications ???Medication ???Instructions ???Recorded ???Confirmed ???Type omeprazole 20 mg capsule,delayed 20 mg PO DAILY acid reflux 11/09/13 05/10/24 History release albuterol sulfate 90 mcg/actuation 1 puff inhalation Q4H PRN PRN Sob 07/11/15 05/10/24 History aerosol inhaler /Or Wheezing calcium 250 mg (as phosphate)-vit 2 ea PO DAILY supplement 03/25/19 05/10/24 History D3 10 mcg (400 unit) chewable tablet ascorbic acid (vitamin C) 500 mg 500 mg PO DAILY 06/23/22 05/10/24 History tablet,extended release (Vitamin C ER) meloxicam 7.5 mg tablet 7.5 mg PO BID PRN pain 2 weeks #30 11/30/23 05/10/24 Rx tabs cholecalciferol (vitamin D3) 25 25 mcg PO DAILY 12/16/23 05/10/24 History mcg (1,000 unit) tablet (Vitamin D3) PFSH Medical History Right rotator cuff tear Anxiety History of steroid therapy Back pain Shortness of breath on exertion History of edema SLAP lesion of right shoulder Impingement of right shoulder Arthrosis of right acromioclavicular joint Tendinosis of right rotator cuff Post-menopausal Cancer Alcohol use Rash Arthritis Low iron Restless legs Migraine headache Gastric reflux Asthma Non-smoker Hypotension Cholelithiasis Surgical History Hx of fasciotomy Hx of colonoscopy Hx of prior ablation treatment History of carpal tunnel surgery of right wrist History of reversal of ileostomy History of partial colectomy History of endoscopic retrograde cholangiopancreatography ( 10/2020) S/P hernia repair Hx of cholecystectomy h/o right knee scope Social History Smoking Status: Never smoker HPI RIGHT SHOULDER Details: This documentation accurately reflects the service provided and the decisions made by me, Dr. Juan C Castano MD 05/10/24 0955. Part of today???s visit was documented by [ ], acting as scribe. CACHORRO IRENE is a 59 year old F here today for 5 months follow-up right shoulder arthroscopy subacromial decompression biceps tenodesis and rotator cuff repair, with post op stiffness. 2 month fu cortisone injection. Patient has been working hard with physical therapy the range of motion is improving but the strength and lifting ability is still quite poor. Ortho Exam General General: Yes no acute distress Neurologic: Yes alert and Yes oriented x3 Psychologic: Yes reasonable and appropriate Right Shoulder Skin/Wound: Yes CDI, Yes healed, No ecchymosis, No erythema and No swelling Testing: Positive Neer's; Negative Hawkin's SHOULDER: normal motor and sens to ax nerve, and MRU and AIN/PIN active FE 75, passive 145. ER 30. IR to posterior belt line. strength fe 4-, ER 5 Coding Level of Care Code Off vis,est,level 3 Diagnoses Right rotator cuff tear M75.101 Strain of right shoulder, initial encounter S46.911A Encounter type: initial encounter Assessment and Plan Assessment and Plan (1) Right rotator cuff tear: Status: Acute Plan: CACHORRO IRENE is a 59 year old F here today for 5 months follow-up right shoulder arthroscopy subacromial decompression biceps tenodesis and rotator cuff repair, with post op stiffness. 2 month fu cortisone injection. Patient said her range of motion is improving I am happy there but terms of forward elevation strength although this is improving the patient being 5 months out and still only having about 75 degrees of active forward elevation is unacceptable. I will go ahead and order an MRI to assess for tendon healing and quality in the status of the repair. Follow-up after that in the meantime recommend no lifting over 5 pounds I filled out some forms to that effect the patient understands no further questions or concerns. (2) Right shoulder strain: Status: Acute Qualifiers: En (more content not included)... Normal [facility] Orthopedic Visit Reporton Orthopedic Visit Report [facility] [address] [place] [address] [id number] OFFICE VISIT Date of Service: 03/14/24 MR#: [id number] Acct: [id number] Name: CACHORRO IRENE Rep #: [id number] : 1965 Provider: Dr. Juan C coles MD Age/Sex: 59/F Location: [facility] Status: Signed with Addenda ADDENDUM by Margie Bansal on 03/14/24 at 0915 Office Procedure Documentation entered by Margie Bansal 03/14/24 09:15: Ortho Injections Injections Yes Subacromial Injection Right Is this a patient provided medication?: Yes Details: Obtained consent for injection. Under sterile conditions, injected the patients right subacromial shoulder with 2.0mL Kenalog and 4.0mL Bupivacaine. The patient tolerated the injection well without any noted complication. Patient should call our office if redness develops, pain worsens or if they have any concerns. Office Meds Kenalog 40 mg/mL suspension for injection Performing Provider: Juan C Castano MD Performing Location: [facility] Administered by: Juan C Castano MD on 03/14/24 09:12 Dose Route Admin Location Dispensed Lot Number Expiration Date NDC Man ufacturer 80 mg intra-articular Right Shoulder 2 mL [id number] 11/08/25 4368-6990-19 [facility] Date cc: * Signed Intake Vital Signs 12/23/23 09:50 02/18/24 13:30 Height 5 ft 4 in 5 ft 4 in Intake Visit Reasons: RIGHT SHOULDER Chief Complaint: Right Shoulder Concerns Accompanied by: Self Is patient in pain?: Yes Pain scale (1-10): 8 Allergies latex Allergy (Verified 03/14/24 08:11) Rash adhesive tape Adverse Reaction (Verified 03/14/24 08:11) BLISTERS codeine Adverse Reaction (Verified 03/14/24 08:11) Vomiting iodine Adverse Reaction (Verified 03/14/24 08:11) Rash iron Adverse Reaction (Verified 03/14/24 08:11) FEVER,VOMITING Penicillins Adverse Reaction (Verified 03/14/24 08:11) Vomiting Medications ???Medication ???Instructions ???Recorded ???Confirmed ???Type omeprazole 20 mg capsule,delayed 20 mg PO DAILY acid reflux 11/09/13 03/14/24 History release albuterol sulfate 90 mcg/actuation 1 puff inhalation Q4H PRN PRN Sob 07/11/15 03/14/24 History aerosol inhaler /Or Wheezing calcium phosphate 250 mg-vitamin 2 ea PO DAILY supplement 03/25/19 03/14/24 History D3 10 mcg (400 unit) chewable tablet ascorbic acid (vitamin C) 500 mg 500 mg PO DAILY 06/23/22 03/14/24 History tablet,extended release (Vitamin C ER) meloxicam 7.5 mg tablet 7.5 mg PO BID PRN pain 2 weeks #30 11/30/23 03/14/24 Rx tabs cholecalciferol (vitamin D3) 25 25 mcg PO DAILY 12/16/23 03/14/24 History mcg (1,000 unit) tablet (Vitamin D3) PFSH Medical History Right rotator cuff tear Anxiety History of steroid therapy Back pain Shortness of breath on exertion History of edema SLAP lesion of right shoulder Impingement of right shoulder Arthrosis of right acromioclavicular joint Tendinosis of right rotator cuff Post-menopausal Cancer Alcohol use Rash Arthritis Low iron Restless legs Migraine headache Gastric reflux Asthma Non-smoker Hypotension Cholelithiasis Surgical History Hx of fasciotomy Hx of colonoscopy Hx of prior ablation treatment History of carpal tunnel surgery of right wrist History of reversal of ileostomy History of partial colectomy History of endoscopic retrograde cholangiopancreatography ( 10/2020) S/P hernia repair Hx of cholecystectomy h/o right knee scope Social History Smoking Status: Never smoker HPI RIGHT SHOULDER Details: This documentation accurately reflects the service provided and the decisions made by me, Dr. Juan C Castano MD 03/14/24 08. Part of today???s visit was documented by [ ], acting as scribe. CACHORRO IRENE is a 59 year old F here today for 3 months follow-up right shoulder arthroscopy subacromial decompression biceps tenodesis and rotator cuff repair, with post op stiffness. Patient has been working diligently with physical therapy but at this point it seems like the stiffness is worsening. The patient does not have a history of diabetes or thyroid problems. Ortho Exam General General: Yes no acute distress Neurologic: Yes alert and Yes oriented x3 Psychologic: Yes reasonable and appropriate Right Shoulder Skin/Wound: Yes CDI, Yes healed, No ecchymosis, No erythema and No swelling SHOULDER: normal motor and sens to ax nerve, and MRU and AIN/PIN active and passive FE 50, ER 10 Posterior portal looks clean, small scab Coding Level of Care Code Attention Mich Taylor (more content not included)... Normal [facility] Orthopedic Visit Reporton Orthopedic Visit Report [facility] [address] [place] [address] [address] [place] [address] OFFICE VISIT Date of Service: 02/18/24 MR#: [id number] Acct: [id number] Name: CACHORRO IRENE Rep #: [id number] : 1965 Provider: Dr. Juan C coles MD Age/Sex: 58/F Location: [facility] Status: Signed Intake Vital Signs 12/23/23 09:50 Height 5 ft 4 in Intake Visit Reasons: RIGHT SHOULDER Chief Complaint: Right Shoulder Post-Op Accompanied by: Self Is patient in pain?: Yes Allergies latex Allergy (Verified 02/18/24 13:13) Rash adhesive tape Adverse Reaction (Verified 02/18/24 13:13) BLISTERS codeine Adverse Reaction (Verified 02/18/24 13:13) Vomiting iodine Adverse Reaction (Verified 02/18/24 13:13) Rash iron Adverse Reaction (Verified 02/18/24 13:13) FEVER,VOMITING Penicillins Adverse Reaction (Verified 02/18/24 13:13) Vomiting Medications ???Medication ???Instructions ???Recorded ???Confirmed ???Type omeprazole 20 mg capsule,delayed 20 mg PO DAILY acid reflux 11/09/13 02/18/24 History release albuterol sulfate 90 mcg/actuation 1 puff inhalation Q4H PRN PRN Sob 07/11/15 02/18/24 History aerosol inhaler /Or Wheezing calcium phosphate 250 mg-vitamin 2 ea PO DAILY supplement 03/25/19 02/18/24 History D3 10 mcg (400 unit) chewable tablet ascorbic acid (vitamin C) 500 mg 500 mg PO DAILY 06/23/22 02/18/24 History tablet,extended release (Vitamin C ER) meloxicam 7.5 mg tablet 7.5 mg PO BID PRN pain 2 weeks #30 11/30/23 02/18/24 Rx tabs cholecalciferol (vitamin D3) 25 25 mcg PO DAILY 12/16/23 02/18/24 History mcg (1,000 unit) tablet (Vitamin D3) PFSH Medical History Right rotator cuff tear Anxiety History of steroid therapy Back pain Shortness of breath on exertion History of edema SLAP lesion of right shoulder Impingement of right shoulder Arthrosis of right acromioclavicular joint Tendinosis of right rotator cuff Post-menopausal Cancer Alcohol use Rash Arthritis Low iron Restless legs Migraine headache Gastric reflux Asthma Non-smoker Hypotension Cholelithiasis Surgical History Hx of fasciotomy Hx of colonoscopy Hx of prior ablation treatment History of carpal tunnel surgery of right wrist History of reversal of ileostomy History of partial colectomy History of endoscopic retrograde cholangiopancreatography ( 10/2020) S/P hernia repair Hx of cholecystectomy h/o right knee scope Social History Smoking Status: Never smoker HPI RIGHT SHOULDER Details: This documentation accurately reflects the service provided and the decisions made by me, Dr. Juan C Castano MD 02/18/24 7136. Part of today???s visit was documented by [ ], acting as scribe. CACHORRO IRENE is a 58 year old F here today for 9 weeks follow-up right shoulder arthroscopy subacromial decompression biceps tenodesis and rotator cuff repair, with post op stiffness. Patient does notice some progress in terms of the range of motion of the shoulder. Had some very scant drainage from the posterior shoulder arthroscopy portal still but that had healed and then had a little bit of bleeding there as well but no fevers chills or other constitutional symptoms no redness or warmth or swelling about the shoulder. Patient has been doing some physical therapy for assisted and passive range of motion doing some stretching now. Ortho Exam General General: Yes no acute distress Neurologic: Yes alert and Yes oriented x3 Psychologic: Yes reasonable and appropriate Right Shoulder Skin/Wound: Yes CDI, Yes healed, No ecchymosis, No erythema and No swelling SHOULDER: normal motor and sens to ax nerve, and MRU and AIN/PIN active and passive FE 100, ER 30. Posterior portal looks clean and dry but still not entirely healed Coding Level of Care Code Global Post Op Diagnoses Right rotator cuff tear M75.101 Strain of right shoulder, initial encounter S46.911A Encounter type: initial encounter SLAP lesion of right shoulder S43.431A Assessment and Plan Assessment and Plan (1) Right rotator cuff tear: Status: Acute Plan: 58 year old F here today for 9 weeks follow-up right shoulder arthroscopy subacromial decompression biceps tenodesis and rotator cuff repair, with post op stiffness. The stiffness is slowly improving the patient does notice that have some improvement able to do more things around the house okay to start some light strengthening continue on with the stretching program. Patient has low blood sugars and is never did not been tested for thyroid I do not think this is a frozen shoulder although it would be in the differential diagnosi (more content not included)... Normal [facility] Orthopedic Visit Reporton Orthopedic Visit Report [facility] [address] [place] [address] OFFICE VISIT Date of Service: 01/28/24 MR#: [id number] Acct: [id number] Name: CACHORRO IRENE Rep #: [id number] : 1965 Provider: Dr. Juan C coles MD Age/Sex: 58/F Location: [facility] Status: Signed Intake Vital Signs 12/23/23 09:50 Height 5 ft 4 in Intake Visit Reasons: RIGHT SHOULDER Accompanied by: Self Is patient in pain?: Yes Pain scale (1-10): 6 Allergies latex Allergy (Verified 01/28/24 14:11) Rash adhesive tape Adverse Reaction (Verified 01/28/24 14:11) BLISTERS codeine Adverse Reaction (Verified 01/28/24 14:11) Vomiting iodine Adverse Reaction (Verified 01/28/24 14:11) Rash iron Adverse Reaction (Verified 01/28/24 14:11) FEVER,VOMITING Penicillins Adverse Reaction (Verified 01/28/24 14:11) Vomiting Medications ???Medication ???Instructions ???Recorded ???Confirmed ???Type omeprazole 20 mg capsule,delayed 20 mg PO DAILY acid reflux 11/09/13 01/28/24 History release albuterol sulfate 90 mcg/actuation 1 puff inhalation Q4H PRN PRN Sob 07/11/15 01/28/24 History aerosol inhaler /Or Wheezing calcium phosphate 250 mg-vitamin 2 ea PO DAILY supplement 03/25/19 01/28/24 History D3 10 mcg (400 unit) chewable tablet ascorbic acid (vitamin C) 500 mg 500 mg PO DAILY 06/23/22 01/28/24 History tablet,extended release (Vitamin C ER) meloxicam 7.5 mg tablet 7.5 mg PO BID PRN pain 2 weeks #30 11/30/23 01/28/24 Rx tabs cholecalciferol (vitamin D3) 25 25 mcg PO DAILY 12/16/23 01/28/24 History mcg (1,000 unit) tablet (Vitamin D3) PFSH Medical History Right rotator cuff tear Anxiety History of steroid therapy Back pain Shortness of breath on exertion History of edema SLAP lesion of right shoulder Impingement of right shoulder Arthrosis of right acromioclavicular joint Tendinosis of right rotator cuff Post-menopausal Cancer Alcohol use Rash Arthritis Low iron Restless legs Migraine headache Gastric reflux Asthma Non-smoker Hypotension Cholelithiasis Surgical History Hx of fasciotomy Hx of colonoscopy Hx of prior ablation treatment History of carpal tunnel surgery of right wrist History of reversal of ileostomy History of partial colectomy History of endoscopic retrograde cholangiopancreatography ( 10/2020) S/P hernia repair Hx of cholecystectomy h/o right knee scope Social History Smoking Status: Never smoker HPI RIGHT SHOULDER Details: This documentation accurately reflects the service provided and the decisions made by me, Dr. Juan C Castano MD 01/28/24 1023. Part of today???s visit was documented by [ ], acting as scribe. CACHORRO IRENE is a 58 year old F here today for 6 weeks follow-up right shoulder arthroscopy subacromial decompression biceps tenodesis and rotator cuff repair. Patient notices a little bit of stiffness and mild swelling about the shoulder. They have been doing range of motion exercises with physical therapy. They had the portal posteriorly it opened and then closed 1 or 2 times in the last few weeks. No redness or warmth or drainage of the shoulder. It is sore laterally as well as some mild swelling medially at the biceps tenodesis site. Ortho Exam General General: Yes no acute distress Neurologic: Yes alert and Yes oriented x3 Psychologic: Yes reasonable and appropriate Right Shoulder Skin/Wound: Yes CDI, Yes healed, Yes wound(s) cleaned with betadine/alcohol and sterile water, Yes wound(s) manually debrided then Saline/Betadine/, No ecchymosis, No erythema and No swelling SHOULDER: normal motor and sens to ax nerve, and MRU and AIN/PIN active and passive FE 90, ER 30. small stitch abscess posterior portal, did local wound care, expressed 0.5cc pus, cleaned w betadine, steris applied. Coding Level of Care Code Global Post Op Diagnoses Right rotator cuff tear M75.101 Strain of right shoulder, initial encounter S46.911A Encounter type: initial encounter SLAP lesion of right shoulder S43.431A Assessment and Plan Assessment and Plan (1) Right rotator cuff tear: Status: Acute Plan: CACHORRO IRENE is a 58 year old F here today for 6 weeks follow-up right shoulder arthroscopy subacromial decompression biceps tenodesis and rotator cuff repair. Patient has some mild to moderate stiffness postoperatively here. They should continue to work on range of motion active assisted and passive range of motion until good range of motion is achieved and then okay to start strengthening. The patient will follow-up with me in 3 weeks time to check the range of motion. Ther (more content not included)... Normal [facility] Inital Evaluation (1) - PTon 01-12-2024 Inital Evaluation (1) - PT [facility] Physical Therapy [facility] [address] [place] [address]. [address] [place] [address] / REHABILITATION SERVICES INITIAL EVALUATION MR#: [id number] Acct: [id number] Name: CACHORRO IRENE Rep #: [id number] : 1965 58 From: Nilson Louis PT. T, OCS Referring Dr.: Dr. Juan C Castano MD Status: R EG RCR Insurance: [facility] [employer]Y [employer]URANCE Patient's Visit Information Visit Information Visit Information: CACHORRO IRENE is a 58 year old F referred to Physical Therapy by Dr. Juan C Castano MD with a diagnosis of UNSPECIFIED ROTATOR CUFF TEAR OR RUPTURE SHOULDER SLAP LESION. Date of Evaluation: 01/12/24 Physical Therapist: Osbaldo Mi PT, Cert CHRISTIANA, OCS Visit Plan Frequency: 2x /Week Duration: Indefinite Plan: S/P ARTHROSCOPIC DECOMPRESSION RTC REPAIR AND BICEPS TENODESIS 12/23/23 SEE GUIDELINES FOR RTC LARGE TEAR AND BICEPS TENODESIS SLING REMOVED ,START PROM SLOWLY NO BICEP LOADING 6 WEEKS LIMIT ER 40 DEGREES PT INTERVENTIONS PHASE I PROM 6 WEEKS MANUAL THERAPY ,PHASE 2 AAROM 6WEEKS ,PHASE 3 AROM /STRENGTHENING RTC /SCAPULAR PER MD ,CP/MHP Subjective Subjective: This 58 y/o female presents to physical therapy with right shoulder subacromial decompression RTC tear and biceps tenodesis on 12/23/23 at [facility] done by DR Castano . Patient d/c DOS with sling . Patient seen DR Castano on d/c sling . Then recommended PT with PROM for 6 weeks . . Patient stated noticed some drainage bicep but today none. Patient stated surgery was longer than normal and more involved chang to supraspinatus torn from footprint. Patient pain medication percocet which is done. Patient has some tingling in hand . Prior to surgery had MRI. Patient is unable to use arm with all functional activities and ADL 's /self hygiene . Patient has difficulty sleeping due to pain. Patient states ice makes pain worse. Patient RTD February 02. Patient condition affects QOL and function/job demands. Patient goals to have full function and RTW and housework tasks. SOCIAL: single VOCATION: [employer] Pain Right: Pain Intensity (Out of 10): 6 Pain Intensity Range: 10 Objective Objective: POSTURE : rounded shoulders head forward NEURO: c/o paresthesia/tingling hand OBSERVATION: bicep tendon small redness , no drainage otherwise portals intact EDEMA: mild effusion bicep region PROM: shoulder flexion 95 degrees ,abduction in scaption 95 degrees ,ER 15 degrees ,biceps 0-120 degrees MMT: NT ( peak force) CAPSULAR : mild tight guarded Balance/Special Test Scores Quick DASH Score: 85.0000 Goals Goal 1:: Patient to be I with HEP for RTC and shoulder tenodesis Goal Time Frame: 8-12 Weeks Goal 2:: Patient to demonstrate 70% improvement with less pain and improve function with ADLS Goal Time Frame: 8-12 Weeks Goal 3:: Patient marguerite improve right shoulder AROM shoulder flexion /abduction 150 degrees and ER 90 degrees ,IR l5 marguerite improve function and ADLS Goal Time Frame: 8-12 Weeks Goal 4:: Patient to improve peak force RTC /deltoid by 10-15 # strength to improve function and ADLS Goal Time Frame: 8-12 Weeks Goal 5:: Patient to improve quick dash by 10 points to improve QOL and function. Goal Time Frame: 8-12 Weeks Rehabilitation Potential Physical Therapy Diagnosis: This patient underwent s/p right shoulder subacromial decompression RTC tear and biceps tenodesis on 12/23/23 . Patient had larger tear . Patient has impairments with decrease ROM ,weakness ,pain and slow recovery due to extent of tear. Patient will benefit from skilled PT Rehabilitation Potential: Good Anticipated Interventions Patient/Client Instruction: Educate patient on: Condition and Plan of Care For the Purpose of:: To decrease pain, To increase ROM, To improve muscle performance and motor function, To increase tolerance to activity/condition/positio n, To improve performance and independence with ADL's, To improve ability of physical actions for home/community/work/leisur e, To improve health of tissue, To decrease soft tissue restriction, To increase flexibility/ROM, To reduce risk of recurrence and To improve tolerance to ADL's Therapeutic Exercise to Include: Strength training, Postural training, Flexibilty training, Passive ROM, Active ROM and Scapular Strength/Stabilization Comment: RTC SEE GUIDLINES For the Purpose of:: To decrease pain, To increase ROM, To improve muscle performance and motor function, To improve ability to perform ADL's, To increase tolerance to activity/condition/positio n, To improve performance and independence with ADL's, To improve ability of physical actions for home/community/work/leisur e, To improve health of tissue, To decrease soft tissue restriction, To increase flexibility/ROM, To reduce risk of recurrence, To prevent re-injury and To improve tolerance to ADL's Manual Therapy Techni (more content not included)... Normal [facility] Orthopedic Visit Reporton Orthopedic Visit Report [facility] [address] [place] [address] OFFICE VISIT Date of Service: 01/05/24 MR#: [id number] Acct: [id number] Name: CACHORRO IRENE Rep #: [id number] : 1965 Provider: Dr. Juan C coles MD Age/Sex: 58/F Location: [facility] Status: Signed Intake Vital Signs 11/18/23 11:05 12/23/23 09:50 Height 5 ft 4 in 5 ft 4 in Intake Visit Reasons: RIGHT SHOULDER Accompanied by: Self Is patient in pain?: Yes Pain scale (1-10): 5 Allergies latex Allergy (Verified 01/05/24 13:01) Rash adhesive tape Adverse Reaction (Verified 01/05/24 13:01) BLISTERS codeine Adverse Reaction (Verified 01/05/24 13:01) Vomiting iodine Adverse Reaction (Verified 01/05/24 13:01) Rash iron Adverse Reaction (Verified 01/05/24 13:01) FEVER,VOMITING Penicillins Adverse Reaction (Verified 01/05/24 13:01) Vomiting Medications ???Medication ???Instructions ???Recorded ???Confirmed ???Type omeprazole 20 mg capsule,delayed 20 mg PO DAILY acid reflux 11/09/13 12/25/23 History release albuterol sulfate 90 mcg/actuation 1 puff inhalation Q4H PRN PRN Sob 07/11/15 12/25/23 History aerosol inhaler /Or Wheezing calcium phosphate 250 mg-vitamin 2 ea PO DAILY supplement 03/25/19 12/25/23 History D3 10 mcg (400 unit) chewable tablet ascorbic acid (vitamin C) 500 mg 500 mg PO DAILY 06/23/22 12/25/23 History tablet,extended release (Vitamin C ER) meloxicam 7.5 mg tablet 7.5 mg PO BID PRN pain 2 weeks #30 11/30/23 12/25/23 Rx tabs cholecalciferol (vitamin D3) 25 25 mcg PO DAILY 12/16/23 12/25/23 History mcg (1,000 unit) tablet (Vitamin D3) PFSH Medical History Right rotator cuff tear Anxiety History of steroid therapy Back pain Shortness of breath on exertion History of edema SLAP lesion of right shoulder Impingement of right shoulder Arthrosis of right acromioclavicular joint Tendinosis of right rotator cuff Post-menopausal Cancer Alcohol use Rash Arthritis Low iron Restless legs Migraine headache Gastric reflux Asthma Non-smoker Hypotension Cholelithiasis Surgical History Hx of fasciotomy Hx of colonoscopy Hx of prior ablation treatment History of carpal tunnel surgery of right wrist History of reversal of ileostomy History of partial colectomy History of endoscopic retrograde cholangiopancreatography ( 10/2020) S/P hernia repair Hx of cholecystectomy h/o right knee scope Social History Smoking Status: Never smoker HPI RIGHT SHOULDER Details: This documentation accurately reflects the service provided and the decisions made by me, Dr. Juan C Castano MD 01/05/24 2254. Part of today???s visit was documented by [ ], acting as scribe. CACHORRO IRENE is a 58 year old F here today for 2 weeks follow-up right shoulder arthroscopy subacromial decompression biceps tenodesis and rotator cuff repair. Patient is doing reasonly well pain gradually settling down but still some difficulties at night. The patient discontinued the narcotics they are having some issues with constipation 2 days after surgery suggest trying some oral anti-inflammatories for that. The patient has been doing some pendulum exercises and discontinue the dressing today and shower over top in preparation for the appointment. Ortho Exam General General: Yes no acute distress Neurologic: Yes alert and Yes oriented x3 Psychologic: Yes reasonable and appropriate Right Shoulder Skin/Wound: Yes CDI, Yes healed, No ecchymosis, No erythema and No swelling SHOULDER: normal motor and sens to ax nerve, and MRU and AIN/PIN Coding Level of Care Code Global Post Op Diagnoses Right rotator cuff tear M75.101 Strain of right shoulder, initial encounter S46.911A Encounter type: initial encounter SLAP lesion of right shoulder S43.431A Assessment and Plan Assessment and Plan (1) Right rotator cuff tear: Status: Acute Plan: 58 year old F here today for 2 weeks follow-up right shoulder arthroscopy subacromial decompression biceps tenodesis and rotator cuff repair. FU 4 weeks. OK to start PT, dc sling. OK to shower over incisions. No further concerns. (2) Right shoulder strain: Status: Acute Qualifiers: Encounter type: initial encounter Qualified Code(s): S46.911A - Strain of unspecified muscle, fascia and tendon at shoulder and upper arm level, right arm, initial encounter (3) SLAP lesion of right shoulder: Status: Acute Orders: Referrals PT Referral M75.101 - Unspecified rotator cuff tear or rupture of right shoulder, not specified as traumatic, S43.431A - Superior glenoid labrum lesion of right shoulder, (more content not included)... Normal [facility] Absolute lymphocyte countOrd ered By: Junior Madsen on 07-06-2023 Lymphocytes Auto (Unsp spec) [#/Vol] 2.05 10*3/uL 0.83-4.51 [facility] Basophil percentageOrdered B y: Junior Madsen on 07-06-2023 Basophils/100 WBC (Bld) 0.9 % 0-1 [facility] Bilirubin [Mass/Vol] 1.10 mg/dL 0.20-1.00 [facility] Comment on above: For patients on eltr ombopag therapy, use of Dimension [place] TBIL is not recommended. Chloride [Moles/Vol] 107 mmol/L 98-107 [facility] Eosinophils/100 WBC (Bld) 4.0 % 0-5 [facility] Glucose [Mass/Vol] 106 mg/dL 74-106 [facility] Comment on above: Fasting Glucose resu lt from 100 to 125 mg/dL suggests IMPAIRED HOMEOSTASIS per A.D.A. criteria. Neutrophils (Bld) [#/Vol] 3.8 10*3/uL 2.0-7.7 [facility] Neutrophils/100 WBC (Bld) 56.7 % 47-70 [facility] Potassium [Moles/Vol] 3.6 mmol/L 3.5-5.1 [facility] Protein [Mass/Vol] 7.1 g/dL 6.4-8.2 [facility] Sodium [Moles/Vol] 140 mmol/L 136-145 [facility] WBC (Bld) [#/Vol] 6.8 10*3/uL 4.4-11.0 [facility] Blood erythrocytes count (nu mber/volume)Ordered By: Junior Madsen on 07-06-2023 RBC (Bld) [#/Vol] 4.69 10*6/uL 4.2-5.4 [facility] Blood hemoglobin measurement (mass/volume)Ordered By: Junior Madsen on 07-06-2023 Hemoglobin (Bld) [Mass/Vol] 13.1 g/dL 12.0-15.0 [facility] Blood lymphocytes/100 leukoc ytesOrdered By: Junior Madsen on 07-06-2023 Lymphocytes/100 WBC (Bld) 30.3 % 19-41 [facility] Blood monocytes/100 leukocyt esOrdered By: Junior Madsen on 07-06-2023 Monocytes/100 WBC (Bld) 7.8 % 0-10 [facility] Blood platelet mean volumeOr dered By: Junior Madsen on 07-06-2023 Platelet mean volume (Bld) [Entitic vol] 11.1 fL 6.2-12.0 [facility] Determination of erythrocyte mean corpuscular volume (MCV)Ordered By: Junior Madsen on 07-06-2023 MCV (RBC) [Entitic vol] 88.5 fL 81-99 [facility] Hematocrit Auto (Bld) [Volum e fraction]Ordered By: Junior Madsen on 07-06-2023 Hematocrit (Bld) [Volume fraction] 41.5 % 37-47 [facility] Iron measurement (mass/mass) Ordered By: Junior Madsen on 07-06-2023 Iron (Unsp spec) [Mass/Mass] 56 ug/dL 50-170 [facility] Laboratory - Chemistry and C hemistry - challengeOrdered By: Junior Madsen on 07-06-2023 ALP [Catalytic activity/Vol] 75 U/L 45-117 [facility] ALT [Catalytic activity/Vol] 22 U/L 13-56 [facility] CO2 [Moles/Vol] 25.0 mmol/L 21.0-32.0 [facility] Cobalamin (Vitamin B12) [Mass/Vol] 358 pg/mL 211-911 [facility] Globulin (S) [Mass/Vol] 3.6 g/dL 2.2-4.2 [facility] Magnesium [Mass/Vol] 2.3 mg/dL 1.6-2.6 [facility] Urea nitrogen/Creatinine [Mass ratio] 11.2 mg/mg 10-20 [facility] Laboratory - Hematology and Cell countsOrdered By: Junior Madsen on 07-06-2023 Erythrocyte distribution width (RBC) [Entitic vol] 43.1 fL 35.1-43.9 [facility] Erythrocyte distribution width (RBC) [Ratio] 13.3 % 11.6-14.6 [facility] Immature granulocytes/100 WBC (Bld) 0.300 % 0.0-0.9 [facility] Comment on above: IG% - Immature Granu locytes (promyelocytes, myelocytes and metamyelocytes) > 1% indicates that a LEFT SHIFT is Present. MCH (RBC) [Entitic mass] 27.9 pg 27.0-32.0 [facility] Nucleated RBC/100 WBC (Bld) [Ratio] 0 % 0-5 [facility] MCHC Auto (RBC) [Mass/Vol]Or dered By: Junior Madsen on 07-06-2023 MCHC (RBC) [Mass/Vol] 31.6 g/dL 32-36 [facility] No Panel InformationOrdered By: Junior Madsen on 07-06-2023 Estimated GFR (MDRD) Amer 75 mL/min >60 [facility] Comment on above: GFR Calc Estimated GFR (MDRD) Non-Af Amer 62 mL/min >60 [facility] Comment on above: Non- GFR Calc Thyroid Stimulating Hormone (TSH) 2.62 uIU/mL 0.358-3.74 [facility] Vitamin D 25-Hydroxy 33.8 ng/mL [facility] Comment on above: Vitamin D 25(OH) Sta tus Range Deficiency <20 ng/mL (50nmol/L) Insufficiency 20 - 30 ng/mL (50 - 75 nmol/L) Sufficiency 30 - 100 ng/mL (75 - 250 nmol/L) Toxicity >100 ng/mL (>250 nmol/L) Platelets bldOrdered By: Jewels erwin Cale on 07-06-2023 Platelets (Bld) [#/Vol] 263 10*3/uL 150-450 [facility] Serum or plasma C reactive p rotein measurement (mass/volume)Ordered By: Junior Madsen on 07-06-2023 CRP [Mass/Vol] 4.65 mg/L 0.0-3.0 [facility] Comment on above: C-Reactive Protein ( CRP) provides useful information for thediagnosis, therapy and monitoring of inflammatory processesand associated diseases. For the evaluation of Relative Riskfor Cardiovascular Disease, a High Sensitivity CRP (HSCRP)should be ordered. Serum or plasma albumin mali urement (mass/volume)Ordered By: Junior Madsen on 07-06-2023 Albumin [Mass/Vol] 3.5 g/dL 3.2-5.0 [facility] Serum or plasma albumin/glob ulin mass ratioOrdered By: Junior Madsen on 07-06-2023 Albumin/Globulin [Mass ratio] 1.0 {ratio} 0.9-2.4 [facility] Serum or plasma calcium mali urement (mass/volume)Ordered By: Junior Madsen on 07-06-2023 Calcium [Mass/Vol] 8.8 mg/dL 8.5-10.1 [facility] Serum or plasma creatinine m easurement (mass/volume)Ordered By: Junior Madsen on 07-06-2023 Creatinine [Mass/Vol] 0.98 mg/dL 0.55-1.02 [facility] Comment on above: The validity of the calculated GFR & GFRAA in patients over 70 years has not been determined. Clinical correlation is essential. Serum or plasma ferritin saulo surement (mass/volume)Ordered By: Junior Madsen on 07-06-2023 Ferritin [Mass/Vol] 11 ng/mL 8-252 [facility] Serum or plasma urea nitroge n measurement (mass/volume)Ordered By: Junior Madsen on 07-06-2023 Urea nitrogen [Mass/Vol] 11 mg/dL 7-18 [facility] Thin prep Papanicolaou smear with manual screeningOrdered By: Junior Madsen on 07-06-2023 Thin prep Papanicolaou smear with manual screening 14 U/L 15-37 [facility] Thin prep Papanicolaou smear with manual screening 8 5-15 [facility] Absolute lymphocyte counton 08-22-2022 Lymphocytes Auto (Unsp spec) [#/Vol] 1.62 10*3/uL 0.83-4.51 [facility] Work Phone: Basophil percentageon 2022 Basophils/100 WBC (Bld) 0.4 % 0-1 [facility] Work Phone: Chloride [Moles/Vol] 107 mmol/L 98-107 [facility] Work Phone: Eosinophils/100 WBC (Bld) 0.2 % 0-5 [facility] Work Phone: Glucose [Mass/Vol] 126 mg/dL 74-106 [facility] Work Phone: Comment on above: Fasting Glucose resu lt greater than or equal to 126 mg/dL suggests DIABETES MELLITUS per A.D.A. criteria. Neutrophils (Bld) [#/Vol] 10.4 10*3/uL 2.0-7.7 [facility] Work Phone: Neutrophils/100 WBC (Bld) 81.1 % 47-70 [facility] Work Phone: Potassium [Moles/Vol] 3.4 mmol/L 3.5-5.1 [facility] Work Phone: Sodium [Moles/Vol] 140 mmol/L 136-145 [facility] Work Phone: WBC (Bld) [#/Vol] 12.8 10*3/uL 4.4-11.0 [facility] Work Phone: Blood erythrocytes count (nu mber/volume)on 08-22-2022 RBC (Bld) [#/Vol] 4.67 10*6/uL 4.2-5.4 [facility] Phone: [phone] Blood hemoglobin measurement (mass/volume)on 08-22-2022 Hemoglobin (Bld) [Mass/Vol] 13.0 g/dL 12.0-15.0 [facility] Work Phone: Blood lymphocytes/100 leukoc yteson 08-22-2022 Lymphocytes/100 WBC (Bld) 12.7 % 19-41 [facility] Work Phone: Blood monocytes/100 leukocyt eson 08-22-2022 Monocytes/100 WBC (Bld) 5.0 % 0-10 [facility] Work Phone: Blood platelet mean volumeon 08-22-2022 Platelet mean volume (Bld) [Entitic vol] 10.2 fL 6.2-12.0 [facility] Work Phone: [phone] Determination of erythrocyte mean corpuscular volume (MCV)on 08-22-2022 MCV (RBC) [Entitic vol] 83.3 fL 81-99 [facility] Work Phone: Hematocrit Auto (Bld) [Volum e fraction]on 08-22-2022 Hematocrit (Bld) [Volume fraction] 38.9 % 37-47 [facility] Work Phone: [phone] Laboratory - Chemistry and C hemistry - challengeon 08-22-2022 CO2 [Moles/Vol] 25.0 mmol/L 21.0-32.0 [facility] Work Phone: [phone] Urea nitrogen/Creatinine [Mass ratio] 11.7 mg/mg 10-20 [facility] Work Phone: Laboratory - Hematology and Cell countson 08-22-2022 Erythrocyte distribution width (RBC) [Entitic vol] 40.3 fL 35.1-43.9 [facility] Work Phone: [phone] Erythrocyte distribution width (RBC) [Ratio] 13.3 % 11.6-14.6 [facility] Work Phone: [phone] Immature granulocytes/100 WBC (Bld) 0.600 % 0.0-0.9 [facility] Work Phone: Comment on above: IG% - Immature Granu locytes (promyelocytes, myelocytes and metamyelocytes) > 1% indicates that a LEFT SHIFT is Present. MCH (RBC) [Entitic mass] 27.8 pg 27.0-32.0 [facility] Work Phone: Nucleated RBC/100 WBC (Bld) [Ratio] 0 % 0-5 [facility] Work Phone: MCHC Auto (RBC) [Mass/Vol]on 08-22-2022 MCHC (RBC) [Mass/Vol] 33.4 g/dL 32-36 [facility] Work Phone: No Panel Informationon 08-22 D-Dimer Quantitative (PE/DVT) 0.77 FEU/ug/m 0.27-0.49 [facility] Work Phone: Comment on above: D-Dimer ELEVATED (>0 .49): Additional studies and clinicalassessments are indicated to conclude diagnosis of:Deep Vein Thrombosis (DVT) or Pulmonary Embolism (PE)CRITICAL VALUE VERIFIED. CALLED TO KATIANA ABDULLAHI08/22/221933 Marie Lambert.RESULTS READ BACK BY SAME . Estimated Creatinine Clearance Calc 53.29 ml/min [facility] Work Phone: Estimated GFR (MDRD) Amer 71 mL/min >60 [facility] Work Phone: Comment on above: GFR Calc Estimated GFR (MDRD) Non-Af Amer 59 mL/min >60 [facility] Work Phone: Comment on above: Non- GFR Calc Platelets bldon 08-22-2022 Platelets (Bld) [#/Vol] 308 10*3/uL 150-450 [facility] Work Phone: Serum or plasma calcium mali urement (mass/volume)on 08-22-2022 Calcium [Mass/Vol] 9.2 mg/dL 8.5-10.1 [facility] Work Phone: Serum or plasma creatinine m easurement (mass/volume)on 08-22-2022 Creatinine [Mass/Vol] 1.03 mg/dL 0.55-1.02 [facility] Work Phone: Comment on above: The validity of the calculated GFR & GFRAA in patients over 70 years has not been determined. Clinical correlation is essential. Serum or plasma urea nitroge n measurement (mass/volume)on 08-22-2022 Urea nitrogen [Mass/Vol] 12 mg/dL 7-18 [facility] Work Phone: Thin prep Papanicolaou smear with manual screeningon 08-22-2022 Thin prep Papanicolaou smear with manual screening 8 5-15 [facility] Work Phone: Basophil percentageon 2021 Bilirubin [Mass/Vol] 0.90 mg/dL 0.20-1.00 [facility] Work Phone: Comment on above: For patients on eltr ombopag therapy, use of Dimension [place] TBIL is not recommended. Chloride [Moles/Vol] 109 mmol/L 98-107 [facility] Work Phone: Glucose [Mass/Vol] 93 mg/dL 74-106 [facility] Work Phone: [phone] Potassium [Moles/Vol] 4.0 mmol/L 3.5-5.1 [facility] Work Phone: Protein [Mass/Vol] 7.4 g/dL 6.4-8.2 [facility] Work Phone: [phone] Sodium [Moles/Vol] 141 mmol/L 136-145 [facility] Work Phone: [phone] WBC (Bld) [#/Vol] 6.5 10*3/uL 4.4-11.0 [facility] Work Phone: [phone] Blood erythrocytes count (nu mber/volume)on 06-18-2022 RBC (Bld) [#/Vol] 4.65 10*6/uL 4.2-5.4 [facility] Work Phone: Blood hemoglobin measurement (mass/volume)on 06-18-2022 Hemoglobin (Bld) [Mass/Vol] 13.3 g/dL 12.0-15.0 [facility] Work Phone: Blood platelet mean volumeon 06-18-2022 Platelet mean volume (Bld) [Entitic vol] 11.5 fL 6.2-12.0 [facility] Work Phone: Determination of erythrocyte mean corpuscular volume (MCV)on 06-18-2022 MCV (RBC) [Entitic vol] 86.9 fL 81-99 [facility] Work Phone: [phone] Hematocrit Auto (Bld) [Volum e fraction]on 06-18-2022 Hematocrit (Bld) [Volume fraction] 40.4 % 37-47 [facility] Work Phone: Laboratory - Chemistry and C hemistry - challengeon 06-18-2022 ALP [Catalytic activity/Vol] 74 U/L 45-117 [facility] Work Phone: [phone] ALT [Catalytic activity/Vol] 25 U/L 13-56 [facility] Work Phone: [phone] CO2 [Moles/Vol] 25.0 mmol/L 21.0-32.0 [facility] Work Phone: [phone] Globulin (S) [Mass/Vol] 3.7 g/dL 2.2-4.2 [facility] Work Phone: [phone] Urea nitrogen/Creatinine [Mass ratio] 10.8 mg/mg 10-20 [facility] Work Phone: [phone] Laboratory - Hematology and Cell countson 06-18-2022 Erythrocyte distribution width (RBC) [Entitic vol] 41.3 fL 35.1-43.9 [facility] Work Phone: [phone] Erythrocyte distribution width (RBC) [Ratio] 13.2 % 11.6-14.6 [facility] Work Phone: [phone] MCH (RBC) [Entitic mass] 28.6 pg 27.0-32.0 [facility] Work Phone: MCHC Auto (RBC) [Mass/Vol]on 06-18-2022 MCHC (RBC) [Mass/Vol] 32.9 g/dL 32-36 [facility] Work Phone: No Panel Informationon 06-18 Estimated GFR (MDRD) Amer 80 mL/min >60 [facility] Work Phone: Comment on above: GFR Calc Estimated GFR (MDRD) Non-Af Amer 66 mL/min >60 [facility] Work Phone: Comment on above: Non- GFR Calc Platelets bldon 06-18-2022 Platelets (Bld) [#/Vol] 285 10*3/uL 150-450 [facility] Work Phone: Serum or plasma albumin mali urement (mass/volume)on 06-18-2022 Albumin [Mass/Vol] 3.7 g/dL 3.2-5.0 [facility] Work Phone: Serum or plasma albumin/glob ulin mass ratioon 06-18-2022 Albumin/Globulin [Mass ratio] 1.0 {ratio} 0.9-2.4 [facility] Work Phone: Serum or plasma calcium mali urement (mass/volume)on 06-18-2022 Calcium [Mass/Vol] 9.4 mg/dL 8.5-10.1 [facility] Work Phone: Serum or plasma creatinine m easurement (mass/volume)on 06-18-2022 Creatinine [Mass/Vol] 0.93 mg/dL 0.55-1.02 [facility] Work Phone: Comment on above: The validity of the calculated GFR & GFRAA in patients over 70 years has not been determined. Clinical correlation is essential. Serum or plasma urea nitroge n measurement (mass/volume)on 06-18-2022 Urea nitrogen [Mass/Vol] 10 mg/dL 7-18 [facility] Work Phone: Thin prep Papanicolaou smear with manual screeningon 06-18-2022 Thin prep Papanicolaou smear with manual screening 15 U/L 15-37 [facility] Work Phone: Thin prep Papanicolaou smear with manual screening 7 5-15 [facility] Work Phone: Absolute lymphocyte counton 04-21-2022 Lymphocytes Auto (Unsp spec) [#/Vol] 2.27 10*3/uL 0.83-4.51 [facility] Work Phone: Basophil percentageon 2021 Basophils/100 WBC (Bld) 0.7 % 0-1 [facility] Work Phone: Eosinophils/100 WBC (Bld) 3.6 % 0-5 [facility] Work Phone: Neutrophils (Bld) [#/Vol] 3.8 10*3/uL 2.0-7.7 [facility] Work Phone: Neutrophils/100 WBC (Bld) 55.4 % 47-70 [facility] Work Phone: WBC (Bld) [#/Vol] 6.9 10*3/uL 4.4-11.0 [facility] Work Phone: Blood erythrocytes count (nu mber/volume)on 04-21-2022 RBC (Bld) [#/Vol] 4.47 10*6/uL 4.2-5.4 [facility] Work Phone: Blood hemoglobin measurement (mass/volume)on 04-21-2022 Hemoglobin (Bld) [Mass/Vol] 12.7 g/dL 12.0-15.0 [facility] Work Phone: Blood lymphocytes/100 leukoc yteson 04-21-2022 Lymphocytes/100 WBC (Bld) 32.8 % 19-41 [facility] Work Phone: Blood monocytes/100 leukocyt eson 04-21-2022 Monocytes/100 WBC (Bld) 7.1 % 0-10 [facility] Work Phone: Blood platelet mean volumeon 04-21-2022 Platelet mean volume (Bld) [Entitic vol] 11.2 fL 6.2-12.0 [facility] Work Phone: Determination of erythrocyte mean corpuscular volume (MCV)on 04-21-2022 MCV (RBC) [Entitic vol] 87.0 fL 81-99 [facility] Work Phone: Erythrocyte sedimentation ra joe 04-21-2022 ESR (Bld) [Velocity] 6 mm/h 0-30 [facility] Work Phone: Hematocrit Auto (Bld) [Volum e fraction]on 04-21-2022 Hematocrit (Bld) [Volume fraction] 38.9 % 37-47 [facility] Work Phone: Iron measurement (mass/mass) on 04-21-2022 Iron (Unsp spec) [Mass/Mass] 39 ug/dL 50-170 [facility] Work Phone: Comment on above: Slight Hemolysis, Re sult may be falsely increased. Laboratory - Chemistry and C hemistry - challengeon 04-21-2022 Albumin [Mass/Vol] 3.7 g/dL 2.9-4.4 [facility] Work Phone: Cobalamin (Vitamin B12) [Mass/Vol] 411 pg/mL 211-911 [facility] Work Phone: Laboratory - Hematology and Cell countson 04-21-2022 Erythrocyte distribution width (RBC) [Entitic vol] 42.0 fL 35.1-43.9 [facility] Work Phone: Erythrocyte distribution width (RBC) [Ratio] 13.2 % 11.6-14.6 [facility] Work Phone: Immature granulocytes/100 WBC (Bld) 0.400 % 0.0-0.9 [facility] Work Phone: Comment on above: IG% - Immature Granu locytes (promyelocytes, myelocytes and metamyelocytes) > 1% indicates that a LEFT SHIFT is Present. MCH (RBC) [Entitic mass] 28.4 pg 27.0-32.0 [facility] Work Phone: Nucleated RBC/100 WBC (Bld) [Ratio] 0 % 0-5 [facility] Work Phone: MCHC Auto (RBC) [Mass/Vol]on 04-21-2022 MCHC (RBC) [Mass/Vol] 32.6 g/dL 32-36 [facility] Work Phone: No Panel Informationon 04-21 Addendum Document Comment . [facility] Work Phone: Comment on above: The SPE pattern appe ars unremarkable. Evidence ofmonoclonal protein is not apparent.Performed at: [facility] [address] [id number] Director: Casey Jordan PhD, Phone: [phone] Exizz-8-Dtptneaqw 0.2 g/dL 0.0-0.4 [facility] Work Phone: Wlzkp-1-Xrdhockjo 0.8 g/dL 0.4-1.0 [facility] Work Phone: Anti-Nuclear Antibody Screen Negative Negative [facility] Work Phone: Comment on above: Performed at: [facility] [address] [id number] Director: Casey Jordan PhD, Phone: [phone] Gamma Globulins 0.8 g/dL 0.4-1.8 [facility] Work Phone: Vitamin D 25-Hydroxy 23.7 ng/mL [facility] Work Phone: Comment on above: Vitamin D 25(OH) Sta tus Range Deficiency <20 ng/mL (50nmol/L) Insufficiency 20 - 30 ng/mL (50 - 75 nmol/L) Sufficiency 30 - 100 ng/mL (75 - 250 nmol/L) Toxicity >100 ng/mL (>250 nmol/L) Platelets bldon 04-21-2022 Platelets (Bld) [#/Vol] 218 10*3/uL 150-450 [facility] Work Phone: Protein Fractions Elph [Inte rp]on 04-21-2022 Protein Fractions [Interp] Comment . [facility] Work Phone: Comment on above: Protein electrophore sis scan will follow via computer,mail, or outpatient receptionist delivery. Serum albumin to globulin ra darrell by protein electrophoresison 04-21-2022 Albumin/Globulin Elph [Mass ratio] 1.3 0.7-1.7 [facility] Work Phone: Serum globulin measurement ( mass/volume)on 04-21-2022 Globulin (S) [Mass/Vol] 2.9 g/dL 2.2-3.9 [facility] Work Phone: Serum or plasma C reactive p rotein measurement (mass/volume)on 04-21-2022 CRP [Mass/Vol] 3.88 mg/L 0.0-3.0 [facility] Work Phone: Comment on above: C-Reactive Protein ( CRP) provides useful information for thediagnosis, therapy and monitoring of inflammatory processesand associated diseases. For the evaluation of Relative Riskfor Cardiovascular Disease, a High Sensitivity CRP (HSCRP)should be ordered. Serum or plasma beta globuli n measurement by electrophoresis (mass/volume)on 04-21-2022 Beta globulin Elph [Mass/Vol] 1.1 g/dL 0.7-1.3 [facility] Work Phone: Serum or plasma ferritin saulo surement (mass/volume)on 04-21-2022 Ferritin [Mass/Vol] 11 ng/mL 8-252 [facility] Work Phone: Serum or plasma uric acid me asurement (mass/volume)on 04-21-2022 Urate [Mass/Vol] 4.4 mg/dL 2.6-6.0 [facility] Work Phone: Comment on above: The drugs N-Acetylcy steine and Metamizole may falsely depress this assay. Serum rheumatoid factor dete ctionon 04-21-2022 Rheumatoid factor Ql (S) < 10.0 IU/mL <15 [facility] Work Phone: Thin prep Papanicolaou smear with manual screeningon 04-21-2022 Thin prep Papanicolaou smear with manual screening See comment [facility] Work Phone: Comment on above: Result: Not Observed Total protein bloodon 2021 Protein [Mass/Vol] 6.6 g/dL 6.0-8.5 [facility] Work Phone: [phone] Absolute lymphocyte counton 2022 Lymphocytes Auto (Unsp spec) [#/Vol] 2.26 10*3/uL 0.83-4.51 [facility] Work Phone: [phone] Basophil percentageon 2021 C. trachomatis DNA KRISS+probe Ql (Unsp spec) Negative Negative [facility] Work Phone: [phone] Basophils/100 WBC (Bld) 1.0 % 0-1 [facility] Work Phone: [phone] Bilirubin [Mass/Vol] 1.10 mg/dL 0.20-1.00 [facility] Work Phone: [phone] Comment on above: For patients on eltr ombopag therapy, use of Dimension [place] TBIL is not recommended. Chloride [Moles/Vol] 107 mmol/L 98-107 [facility] Work Phone: Eosinophils/100 WBC (Bld) 2.0 % 0-5 [facility] Work Phone: [phone] Glucose [Mass/Vol] 92 mg/dL 74-106 [facility] Work Phone: Neutrophils (Bld) [#/Vol] 3.9 10*3/uL 2.0-7.7 [facility] Work Phone: Neutrophils/100 WBC (Bld) 57.3 % 47-70 [facility] Work Phone: [phone] Potassium [Moles/Vol] 3.8 mmol/L 3.5-5.1 [facility] Work Phone: [phone] Protein [Mass/Vol] 7.3 g/dL 6.4-8.2 [facility] Work Phone: [phone] Sodium [Moles/Vol] 139 mmol/L 136-145 [facility] Work Phone: [phone] WBC (Bld) [#/Vol] 6.8 10*3/uL 4.4-11.0 [facility] Work Phone: [phone] Blood erythrocytes count (nu mber/volume)on 2022 RBC (Bld) [#/Vol] 4.78 10*6/uL 4.2-5.4 [facility] Work Phone: [phone] Blood hemoglobin measurement (mass/volume)on 2022 Hemoglobin (Bld) [Mass/Vol] 13.4 g/dL 12.0-15.0 [facility] Work Phone: [phone] Blood lymphocytes/100 leukoc yteson 2022 Lymphocytes/100 WBC (Bld) 33.0 % 19-41 [facility] Work Phone: Blood monocytes/100 leukocyt eson 2022 Monocytes/100 WBC (Bld) 6.6 % 0-10 [facility] Work Phone: [phone] Blood platelet mean volumeon 2022 Platelet mean volume (Bld) [Entitic vol] 11.4 fL 6.2-12.0 [facility] Work Phone: Determination of erythrocyte mean corpuscular volume (MCV)on 2022 MCV (RBC) [Entitic vol] 87.4 fL 81-99 [facility] Work Phone: [phone] Erythrocyte sedimentation ra joe 2022 ESR (Bld) [Velocity] 12 mm/h 0-30 [facility] Work Phone: HIV 1 and HIV-2 antibody ass ay with HIV-1 p24 antigen detectionon 2022 HIV 1+2 Ab+HIV1 p24 Ag IA Ql Non-Reactive Nonreactive [facility] Work Phone: [phone] Hematocrit Auto (Bld) [Volum e fraction]on 2022 Hematocrit (Bld) [Volume fraction] 41.8 % 37-47 [facility] Work Phone: [phone] Laboratory - Chemistry and C hemistry - challengeon 2022 ALP [Catalytic activity/Vol] 77 U/L 45-117 [facility] Work Phone: ALT [Catalytic activity/Vol] 24 U/L 13-56 [facility] Work Phone: CO2 [Moles/Vol] 25.0 mmol/L 21.0-32.0 [facility] Work Phone: Globulin (S) [Mass/Vol] 3.4 g/dL 2.2-4.2 [facility] Work Phone: Magnesium [Mass/Vol] 2.4 mg/dL 1.6-2.6 [facility] Work Phone: [phone] Urea nitrogen/Creatinine [Mass ratio] 12.5 mg/mg 10-20 [facility] Work Phone: [phone] Laboratory - Hematology and Cell countson 2022 Erythrocyte distribution width (RBC) [Entitic vol] 42.2 fL 35.1-43.9 [facility] Work Phone: [phone] Erythrocyte distribution width (RBC) [Ratio] 13.2 % 11.6-14.6 [facility] Work Phone: [phone] Immature granulocytes/100 WBC (Bld) 0.100 % 0.0-0.9 [facility] Work Phone: [phone] Comment on above: IG% - Immature Granu locytes (promyelocytes, myelocytes and metamyelocytes) > 1% indicates that a LEFT SHIFT is Present. MCH (RBC) [Entitic mass] 28.0 pg 27.0-32.0 [facility] Work Phone: Nucleated RBC/100 WBC (Bld) [Ratio] 0 % 0-5 [facility] Work Phone: MCHC Auto (RBC) [Mass/Vol]on 2022 MCHC (RBC) [Mass/Vol] 32.1 g/dL 32-36 [facility] Work Phone: Neisseria gonorrhoeae detect ion by PCRon 2022 N. gonorrhoeae DNA KRISS+probe Ql (Cervical mucus) Negative Negative [facility] Work Phone: No Panel Informationon 02-18 Estimated GFR (MDRD) Amer 78 mL/min >60 [facility] Work Phone: Comment on above: GFR Calc Estimated GFR (MDRD) Non-Af Amer 64 mL/min >60 [facility] Work Phone: Comment on above: Non- GFR Calc Hepatitis B Surface Antigen Non-Reactive Nonreactive [facility] Work Phone: Hepatitis C Antibody Non-Reactive Nonreactive [facility] Work Phone: Comment on above: Non Reactive: < 0.8 Equivocal: >/= 0.8 to < 1.0 Reactive: >/= 1.0The CDC recommends that a reactive/equivocal HCV antibody result be followed up by the HCV Nucleic Acid Amplificationtest (753579) Thyroid Stimulating Hormone (TSH) 1.38 uIU/mL 0.358-3.74 [facility] Work Phone: Platelets bldon 2022 Platelets (Bld) [#/Vol] 229 10*3/uL 150-450 [facility] Work Phone: Serum Treponema species anti body detectionon 2022 Treponema sp Ab Ql (S) Non-Reactive [facility] Work Phone: Serum hepatitis B virus core antibody detectionon 2022 HBV core Ab Ql (S) Negative Negative [facility] Work Phone: Comment on above: Performed at: [address] [id number] Director: Casey Jordan PhD, Phone: [phone] Serum or plasma albumin mali urement (mass/volume)on 2022 Albumin [Mass/Vol] 3.9 g/dL 3.2-5.0 [facility] Work Phone: Serum or plasma albumin/glob ulin mass ratioon 2022 Albumin/Globulin [Mass ratio] 1.1 {ratio} 0.9-2.4 [facility] Work Phone: Serum or plasma calcium mali urement (mass/volume)on 2022 Calcium [Mass/Vol] 9.1 mg/dL 8.5-10.1 [facility] Work Phone: Serum or plasma creatinine m easurement (mass/volume)on 2022 Creatinine [Mass/Vol] 0.96 mg/dL 0.55-1.02 [facility] Work Phone: Comment on above: The validity of the calculated GFR & GFRAA in patients over 70 years has not been determined. Clinical correlation is essential. Serum or plasma urea nitroge n measurement (mass/volume)on 2022 Urea nitrogen [Mass/Vol] 12 mg/dL 7-18 [facility] Work Phone: Thin prep Papanicolaou smear with manual screeningon 2022 Thin prep Papanicolaou smear with manual screening 17 U/L 15-37 [facility] Work Phone: Thin prep Papanicolaou smear with manual screening 7 5-15 [facility] Work Phone: Vital Signs Date Time Vital Sign Value Performing Clinician Mario souza 11-18-2023 11:05-0400 Body height 162.[address] Quentin Madsen Work Phone: [facility] 10-30-2023 16:09-0400 Body mass index (BMI) [Ratio] 36.3 kg/m2 Dr. Quentin Madsen Work Phone: [facility] 10-30-2023 16:09-0400 Body temperature 98.6 [degF] Dr. Quentin Madsen Work Phone: [facility] 10-30-2023 16:09-0400 Body weight 96.[address] Quentin Madsen Work Phone: [facility] 10-30-2023 16:09-0400 Diastolic blood pressure 74 mm[Hg] Dr. Quentin Madsen Work Phone: [facility] 10-30-2023 16:09-0400 Heart rate 77 /min Dr. Quentin Madsen Work Phone: [facility] 10-30-2023 16:09-0400 Respiratory rate 16 /min Dr. Quentin Madsen Work Phone: [facility] 10-30-2023 16:09-0400 SaO2% (BldA) [Mass fraction] 97 % Dr. Quentin Madsen Work Phone: [facility] 10-30-2023 16:09-0400 Systolic blood pressure 118 mm[Hg] Dr. Quentin Madsen Work Phone: [facility] 08-22-2022 22:40-0500 Heart rate 97 /min [facility] Work Phone: 08-22-2022 22:40-0500 Respiratory rate 18 /min [facility] Work Phone: 08-22-2022 22:40-0500 SaO2% (BldA) [Mass fraction] 99 % [facility] Work Phone: 08-22-2022 17:57-0500 Body height 162.56 cm [facility] Work Phone: 08-22-2022 17:57-0500 Body mass index (BMI) [Ratio] 35.9 kg/m2 [facility] Work Phone: 08-22-2022 17:57-0500 Body temperature 98.5 [degF] [facility] Work Phone: 08-22-2022 17:57-0500 Body weight 94.8 kg [facility] Work Phone: 08-22-2022 17:57-0500 Diastolic blood pressure 78 mm[Hg] [facility] Work Phone: 08-22-2022 17:57-0500 Systolic blood pressure 141 mm[Hg] [facility] Work Phone: 06-27-2022 12:15-0500 Diastolic blood pressure 82 mm[Hg] [facility] Work Phone: 06-27-2022 12:15-0500 Heart rate 72 /min [facility] Work Phone: 06-27-2022 12:15-0500 Respiratory rate 16 /min [facility] Work Phone: 06-27-2022 12:15-0500 SaO2% (BldA) [Mass fraction] 98 % [facility] Work Phone: 06-27-2022 12:15-0500 Systolic blood pressure 120 mm[Hg] [facility] Work Phone: 06-27-2022 11:27-0500 Body temperature 98 [degF] [facility] Work Phone: 06-27-2022 07:59-0500 Body height 162.56 cm [facility] Work Phone: 06-27-2022 07:59-0500 Body mass index (BMI) [Ratio] 35.5 kg/m2 [facility] Work Phone: 06-27-2022 07:59-0500 Body weight 94 kg [facility] Work Phone: 05-03-2022 02:24-0400 Diastolic blood pressure 93 mm[Hg] [facility] Work Phone: 05-03-2022 02:24-0400 Heart rate 80 /min [facility] Work Phone: 05-03-2022 02:24-0400 Respiratory rate 17 /min [facility] Work Phone: 05-03-2022 02:24-0400 Systolic blood pressure 140 mm[Hg] [facility] Work Phone: 05-03-2022 01:26-0400 Body mass index (BMI) [Ratio] 36.6 kg/m2 [facility] Work Phone: 05-03-2022 01:-040 Body temperature 97.8 [degF] [facility] Work Phone: 05-03-2022 01:040 Body weight 96.7 kg [facility] Work Phone: Encounters Encounter Date Encounter Type Care Provider Facility Start: 12-16-2024 ambulatory Quentin Madsen Faci lity:[facility] Start: 12-16-2024 Non-patient / Non-visit Dr. Winston Forde MD -[facility] Start: 12-16-2024 End: 12-16-[address] Quentin Madsen MD Work Phone: [facility] Work Phone: Start: 12-16-2024 End: 12-16-[address] Quentin Madsen MD -[facility] Work Phone: Start: 12-16-2024 End: 12-16-2024 ambulatory Quentin Madsen Facility:[facility] Start: 10-28-2024 End: 10-28-[address] Quentin Madsen MD Work Phone: [facility] Work Phone: Start: 10-28-2024 End: 10-28-[address] Quentin Madsen MD -Laboratory, [facility] Start: 10-28-2024 End: 10-28-2024 ambulatory Quentin Madsen Facility:[facility] Start: 05-24-2024 End: 05-24-2024 ambulatory Quentin Madsen Facility:[facility] Start: 05-10-2024 End: 05-10-2024 ambulatory Quentin Madsen Facility:[facility] Start: 05-03-2024 End: 05-03-2024 ambulatory Quentin Madsen Facility:[facility] Start: 03-14-2024 End: 03-14-2024 ambulatory Quentin Madsen Facility:[facility] Start: 2024 End: 2024 ambulatory Quentin Madsen Facility:[facility] Start: 01-28-2024 End: 01-28-2024 ambulatory Quentin Madsen Facility:[facility] Start: 01-05-2024 End: 01-05-2024 ambulatory Quentin Madsen Facility:[facility] Start: 11-19-2023 End: 11-19-[address] Quentin Madsen Work Phone: [facility] Work Phone: Start: 11-17-2023 Non-patient / Non-visit Dr. Quentin Madsen Work Phone: [facility] Start: 11-17-2023 End: 11-17-[address] Quentin Madsen Work Phone: [facility] Work Phone: Start: 11-17-2023 End: 11-17-[address] Quentin Madsen Work Phone: [facility] Work Phone: Start: 11-03-2023 End: 11-03-[address] Quentin Madsen Work Phone: [facility] Work Phone: Start: 10-30-2023 End: 10-30-[address] Quentin Madsen Work Phone: [facility] Work Phone: Start: 07-06-2023 End: 07-06-2023 ambulatory [facility] Work Phone: Start: 07-06-2023 End: 07-06-2023 Patient encounter procedure [facility] Start: 08-22-2022 End: 08-22-2022 Emergency department patient visit [facility]-Emergency Department Start: 06-27-2022 End: 06-27-2022 Admission to same day surgery center [facility] Start: 06-27-2022 End: 06-27-2022 ambulatory [facility] Work Phone: Start: 05-03-2022 End: 05-03-2022 Emergency department patient visit [facility]-Emergency Department Start: 04-21-2022 End: 04-21-2022 ambulatory [facility] Work Phone: Start: 04-21-2022 End: 04-21-2022 Patient encounter procedure [facility]-Laboratory, [facility] Start: 04-11-2022 End: 04-11-2022 Patient encounter procedure [facility]-MRI - [facility] Start: 2022 End: 2022 Patient encounter procedure [facility]-Laboratory, [place] Procedures Date Procedure Procedure Detail Performing Clinician Start: 12-16-2024 Radionuclide imaging of perfusion of myocardium under exercise stress Dr. Quentin Madsen MD Work Phone: Start: 10-28-2024 Vitamin D, 25-hydrox y measurement Dr. Quentin Madsen MD Work Phone: Comment on above: Vitamin D StatusDefi ciency: <20 ng/mL (50nmol/L)Insufficiency: 20-30 ng/mL (50-75 nmol/L)Sufficiency: 30-100 ng/mL (75-250 nmol/L)Toxicity: >100 ng/mL (>250 nmol/L) Start: 11-17-[address] MRI arthrography of shoulder Dr. Quentin Madsen Work Phone: Start: 11-17-2023 Plain X-ray of shoulder Dr. Quentin Madsen Work Phone: Start: 11-17-2023 MRI of joint of uppe r extremity Dr. Quentin Madsen Work Phone: Start: 11-03-2023 Plain X-ray of shoulder Dr. Quentin Madsen Work Phone: Start: 08-22-2022 CT angiography of ch est with contrast Start: 06-27-2022 End: 06-27-2022 X-ray of both feet Start: 06-27-2022 Resection Heel Spur/Plantar Fasciotomy (Left) Start: 06-27-2022 Fluoroscopic guidance Start: 04-11-2022 MRI of joint of lowe r extremity Start: 2022 X-ray of both feet History of cholecystectomy Hx of cholecystectomy Comment on above: 2020 Plan of Treatment Date Care Activity Detail Author Start: 11-17-2023 Injection shoulder arthrography/ ct/mri arthg INJECTION FOR SHOULDER X-RAY [facility] Start: 10-30-2023 Patient referral [facility] Work Phone: Start: 06-27-2022 Anes nrv/mus/tnd/fasc lower leg/ankle/foot nos ANESTH LOWER LEG SURGERY [facility] Work Phone: Start: 06-27-2022 Exc neuroma hand/foot xcp digital nerve REMOVE LIMB NERVE LESION [facility] Work Phone: Start: 06-27-2022 Fasciectomy plantar fascia partial spx PARTIAL REMOVAL FOOT FASCIA [facility] Work Phone: Start: 06-27-2022 Ostectomy calcaneus spur w/wo plntar fascial rls REMOVAL OF HEEL SPUR [facility] Work Phone: Start: 06-27-2022 End: 06-27-2022 X-ray of both feet Foot min 3 Views [facility] Work Phone: Start: 06-27-2022 Catheterization of vein [facility] Work Phone: Start: 06-27-2022 Elevation of foot of bed [facility] Work Phone: Start: 06-27-2022 Neurovascular assessment [facility] Work Phone: Start: 06-27-2022 Patient discharge [facility] Work Phone: Start: 06-27-2022 Procedure discontinued [facility] Work Phone: Start: 06-27-2022 Vital signs measurements [facility] Work Phone: Start: 06-27-2022 [facility] Work Phone: Start: 06-27-2022 XR Foot GE 3 Views [facility] Work Phone: Patient Education [facility] Work Phone: Patient referral [facility] Work Phone: Payers Date Payer Category Payer Self-pay [id number] 2014 Unknown [id number] Unknown [id number] Unknown [id number] 2.16.8 [id number] Unknown [id number] 2.16.8 [id number] Unknown [id number] 2.16.8 [id number] Unknown [id number] 2.16.8 [id number] Unknown [id number] 2.16.8 [id number] Unknown [id number] 2.16.8 [id number] Unknown [id number] 2.16.8 [id number] Unknown [id number] 2.16.8 [id number] Unknown [id number] 2.16.8 [id number] Unknown [id number] 2.16.8 [id number] Unknown [id number] 2.16.8 [id number] Social History Date Type Detail Facility Start: 11-12-2020 End: 11-19-2023 Tobacco smoking status NHIS Unknown if ever smoked [facility] Start: 03-25-2019 Non-smoker [facility] Start: 1965 Sex Assigned At Female [facility] Start: 2024 Tobacco smoking stat us NHIS Never smoked tobacco (finding) [facility] Start: 11-03-2024 Sex Female (finding) [facility] Medical Equipment Procedure Code Equipment Code Equipment Original Text Equipment Identifier Dates Cholecystocolostomy CLIP,HEMOLOC K MED WECK FDA Start: 10-13-2020 Cholecystocolostomy CLIP,HEMOLOC K MED WECK FDA Start: 10-13-2020 Cholecystocolostomy CLIP,HEMOLOC K MED WECK FDA Start: 10-13-2020 Cholecystocolostomy CLIP,HEMOLOC K MED WECK FDA Start: 10-13-2020 Cholecystocolostomy CLIP,HEMOLOC K MED WECK FDA Start: 10-13-2020 Cholecystocolostomy CLIP,HEMOLOC K MED WECK FDA Start: 10-13-2020 Cholecystocolostomy CLIP,HEMOLOC K MED WECK FDA Start: 10-13-2020 Cholecystocolostomy CLIP,HEMOLOC K MED WECK FDA Start: 10-13-2020 Cholecystocolostomy CLIP,HEMOLOC K MED WECK FDA Start: 10-13-2020 Cholecystocolostomy CLIP,HEMOLOC K MED WECK FDA Start: 10-13-2020 Cholecystocolostomy CLIP,HEMOLOC K MED WECK FDA Start: 10-13-2020 Cholecystocolostomy CLIP,HEMOLOC K MED WECK FDA Start: 10-13-2020 Cholecystocolostomy CLIP,HEMOLOC K MED WECK FDA Start: 10-13-2020 Cholecystocolostomy CLIP,HEMOLOC K MED WECK FDA Start: 10-13-2020 Cholecystocolostomy CLIP,HEMOLOC K MED WECK FDA Start: 10-13-2020 Cholecystocolostomy CLIP,HEMOLOC K MED WECK FDA Start: 10-13-2020 Arthroscopy, shoulder ANCHOR, 4. 75 SWIVEL LOCK FDA Start: 12-23-2023 Arthroscopy, shoulder button implant FDA Start: 12-23-2023 Arthroscopy, shoulder knotless f iber amanda FDA Start: 12-23-2023 Arthroscopy, shoulder ANCHOR, 4. 75 SWIVEL LOCK FDA Start: 12-23-2023 Arthroscopy, shoulder button implant FDA Start: 12-23-2023 Arthroscopy, shoulder knotless f iber amanda FDA Start: 12-23-2023 Goals Date Patient Goal Desired Activity /State Mental Status Date Assessment Result Facility 06-27-2022 Cognitive function Voice/Name [facility] Work Phone: Procedure note 11-17-2023 Note Date & Type Note Facility 11-17-2023 Procedure note [facility] Evaluation note Note Date & Type Note Facility Evaluation note No assessment information availa ble [facility] Work Phone: Evaluation note Note Date & Type Note Facility Evaluation note Diagnosis Onset Date Right shoulder strain acute Strain of left knee acute Right shoulder strain acute Right shoulder strain acute Arthrosis of right acromioclavicular joint acute Impingement of right shoulder acute Right shoulder strain acute SLAP lesion of right shoulder acute Tendinosis of right rotator cuff acute [facility] Work Phone: Reason for referral (narrative) Note Date & Type Note Facility Reason for referral (narrative) No reason for referral information available [facility] Work Phone: Family History No Family History Records Found Relationship Condition Age at Onset Recorded Date/T analisa Unknown Family History?No pertinent history Unkno wn October 12, 2020 6:05pm Relationship Condition Age at Onset Recorded Date/T analisa Unknown Family History?No pertinent history Unkno wn October 12, 2020 5:05pm Relationship Condition Age at Onset Recorded Date/T analisa Unknown Family History?No pe rtinent history Unknown October 12, 2020 6:05pm Family History?No pe rtinent history Unknown November 18, 2023 11:05am Advance Directives No Advanced Directives Records Found Advance Directive Response Recorded Date/ Time Advance Directives Yes July 17, 2015 10:08am Living Will No October 12, 2020 7:53pm Power of Director Of Outside Sales No October 12 7:53pm Advance Directive Response Recorded Date/ Time Advance Directives Yes July 17, 2015 9:08am Living Will No June 23 1:14pm Power of Director Of Outside Sales No June 23, 2022 1:14pm Advance Directive Response Recorded Date/ Time Advance Directives Yes July 17, 2015 9:08am Living Will No August 22 6:34pm Power of Director Of Outside Sales No August 22, 2022 6:34pm Advance Directive Response Recorded Date/ Time Advance Directives Yes November 17 11:05am Living Will No November 18, 2023 11:05am Power of Director Of Outside Sales No November 17 11:05am Advance Directive Response Recorded Date/ Time Advance Directives Yes November 17 11:05am Chief Complaint and Reason for Visit Chief Complaint Plantar fascial fibr omatosis EORDER Chief Complaint Plantar fascial fibr omatosis EORDER L FOOT PAIN LT FOOT PLANTER FASCIECTOMY, PLANTAR FASCIOTOMY Chief Complaint L FOOT PAIN LT FOOT PLANTER FASCIECTOMY, PLANTAR FASCIOTOMY SOB Chief Complaint SWOLLEN LEFT KNEE, R T SHOULDER/ELBOW PAIN RIGHT SHOULDER Room 1 STRAIN OF MUSCLE STRAIN OF MUSCLE RIGHT SHOULDER Reason for Visit Right shoulder strai n Strain of left knee Right shoulder strain Right shoulder strain Arthrosis of right acromioclavicular joint Impingement of right shoulder Right shoulder strain SLAP lesion of right shoulder Tendinosis of right rotator cuff Chief Complaint Admit Date CHEST PAIN December 16, 2024 6:50am CHEST PAIN December 16, 2024 9:26am Summary Purpose Additional Source Comments Goals (unrecognized section and content) Goals may be documented in a n alternate sectionGoals may be documented in an alternate sectionGoals may be documented in an alternate sectionGoals may be documented in an alternate sectionGoals may be documented in an alternate sectionGoals may be documented in an alternate section Care Teams (unrecognized sec tion and content) Team Status: Active Member Role Status Dates Dr. Erlin De Dios MD Family Provider Active Dr. Junior Madsen MD Primary Care Provider Activ e Team Status: Inactive Member Role Status Dates Dr. Junior Madsen MD Primary Care Provider, Atte nding Provider Active Team Status: Active Member Role Status Dates Dr. Erlin De Dios MD Family Provider Active Dr. Quentin Madsen MD Primary Care Provider Acti ve Team Status: Inactive Member Role Status Dates Dr. Quentin Madsen MD Primary Care Provider, Ref erring Provider Active Boubacar Christo PA, PA Attending Provider Active Team Status: Inactive Member Role Status Dates Dr. Quentin Madsen MD Primary Care Provider, Ref erring Provider Active Juan C Castano MD Attending Provider Active Team Status: Inactive Member Role Status Dates Dr. Quentin Madsen MD Primary Care Provider Acti ve Dr. Winston Forde MD Attending Provider Active Team Status: Active Member Role Status Dates Dr. Quentin Madsen MD Primary Care Provider Acti ve Juan C Castano MD Referring Provider, Other Provider Active BETSEY Zepeda Attending Provider Active Team Status: Inactive Member Role Status Dates Dr. Quentin Madsen MD Primary Care Provider Acti ve Juan C Castano MD Attending Provider, Referring Prov ider Active Team Status: Inactive Member Role Status Dates Dr. Quentin Madsen MD Primary Care Provider Acti ve Start: October 28, 2024 End: October 28, 2024 Dr. Quentin Madsen MD Attending Provider Active Start: October 28, 2024 End: October 28, 2024 Dr. Quentin Madsen MD Referring Provider Active Start: October 28, 2024 End: October 28, 2024 Team Status: Active Member Role Status Dates Dr. Quentin Madsen MD Primary Care Provider Acti ve Team Status: Inactive Member Role Status Dates Dr. Quentin Madsen MD Primary Care Provider Acti ve Start: December 16, 2024 End: December 16, 2024 Dr. Quentin Madsen MD Attending Provider Active Start: December 16, 2024 End: December 16, 2024 Dr. Quentin Madsen MD Referring Provider Active Start: December 16, 2024 End: December 16, 2024 Team Status: Active Member Role Status Dates Dr. Quentin Madsen MD Primary Care Provider Acti ve Start: December 16, 2024 Dr. Raul Park MD Attending Provider Active Start: December 16, 2024 Team Status: Active Member Role Status Dates Dr. Quentin Madsen MD Primary Care Provider Acti ve Start: December 16, 2024 Dr. Quentin Madsen MD Referring Provider Active Start: December 16, 2024 Dr. Quentin Madsen MD Other Provider Active Start: December 16, 2024 Dr. Winston Forde MD Attending Provider Active S tart: December 16, 2024 INFORMATION SOURCE (unrecogn ized section and content) DATE CREATED AUTHOR 12/26/2024 [facility] FOR RECORDS PERTAINING TO PATIENTS WHO ARE OR HAVE BEEN ENROLLED IN A CHEMICAL DEPENDENCY/SUBSTANCEABUSE PROGRAM, SOME INFORMATION MAY BE OMITTED. This clinical summary was aggregated from multiple sources. Caution should be exercised in using it in the provision of clinical care. This summary normalizes information from multiple sources, and as a consequence, information in this document may materially change the coding, format and clinical context of patient data. In addition, data may be omitted in some cases. CLINICAL DECISIONS SHOULD BE BASED ON THE PRIMARY CLINICAL RECORDS. [employer] [facility] provides no warranty or guarantee of the accuracy or completeness of information in this document.
== END | disposition home or self-care (01) ==
LOC: MFPLAB 08:23
PROVIDERS: PCP Family Medicine; Visit Provider Family Medicine
DX: R21 Rash and other nonspecific skin eruption (principal)
CPT/HCPCS: 88305